=== PATIENT | male | born 1995 | race Caucasian/White ===

== ENCOUNTER 2023-04-28 02:15 | Emergency (ER) | payer SELFPAY ==
[2023-04-28 02:18] VITALS: BP 190/120; PULSE 66; RESP 18; TEMP 36.8; O2SAT 99
--- NOTE | 2023-04-28 02:25 | PC.NURSE ---
Pt presents to ER for dental pain to the top right portion of his mouth Pt states I am experiencing nerve pain due to a chipped tooth Pt states he was in [facility] ER yesterday and given Percocet Pt states he was in the ER all weekend due to this pain Pt is scheduled to see his dentist tomorrow Pt states the numbing sucker worked better than the Percocet, the Percocet is not helping Pt request's room temperature water at this time
--- NOTE | 2023-04-28 02:32 | ED.GENADUL1 ---
HPI - General Adult General Chief complaint: Dental/Oral Stated complaint: DENTAL PAIN Time Seen by Provider: 04/28/23 02:26 Source: patient Mode of arrival: walk-in Limitations: no limitations History of Present Illness HPI narrative: Patient is a 27-year-old male who is presenting with acute on chronic dental pain. Patient is complaining of severe pain to tooth #31. Patient has partially eroded teeth at tooth #31 along with multiple other teeth that have erosion/dental caries. Patient has gone to the Emergency Room at [facility] several times over the weekend trying to get pain relief. Thankfully patient does have a dentist appointment later today, April 28. Patient denies any type of trauma, fall, or accident. Patient has not seen a dentist in a long time, years. Patient cousin is at bedside, we can talk about patient's health care in front cousin. Patient has been prescribed Percocet, antibiotics, also been taking Tylenol, Motrin. Patient is not been using ice or heat. Patient's having pain to the right side of his face. Patient blood pressure is elevated, patient says the reason the blood pressures elevated secondary to pain and is been told this multiple times over the weekend about his elevated blood pressure. He typically does not have elevated blood pressure, he relates it to the pain. Patient has no other acute complaints at this time. . All systems are negative except as noted/marked. All systems reviewed and otherwise negative. . Nurses note and vital signs reviewed and patient is not hypoxic. Nurses notes reviewed and patient is noted to be non-hypoxic. General: The patient is comfortable, alert and oriented x3, well appearing, non toxic in no apparent distress. Head: Atraumatic and normocephalic. Eyes: Normal conjunctiva ENT: The oropharynx is normal. No pharyngeal erythema, uvular edema, tonsillar exudates, asymmetry or trismus. Uvula is midline. Mouth is normal to inspection With the exception of a pain on percussion of the tooth #31 and evidence of Multiple areas of Dental erosion and dental caries. There is no evidence of facial asymmetry or abscess formation. Floor of the mouth is soft. No tenderness in the submental or submandibular space. No tongue elevation or deviation. The patient has no evidence of periapical abscess, gingivitis, ANUG or other acute pathology. Airway is patent. Neck: The neck demonstrates normal range of motion. No meningeals signs are present. No stridor. No masses or lymphandenopathy noted. Respiratory: No acute distress, lungs are clear to auscultation, no wheezing, rhonchi, or rales noted. No stridor or retractions are noted. Cardiovascular: Regular rate and rhythm Skin: The skin exam shows no evidence of rashes Neuro: Alert and oriented x4, normal speech Lymphatic: No cervical lymphadenopathy Related Data Home Medications Medication Instructions Recorded Confirmed oxycodone-acetaminophen 5 mg-325 tab 04/28/23 mg tablet Allergies Allergy/AdvReac Type Severity Reaction Status Date / Time Penicillins Allergy Verified 04/28/23 02:22 [facility] Social History Smoking status: Current every day smoker Exam Constitutional Vital Signs, click to edit/add: Last Vital Signs Temp 98.2 F 04/28/23 02:18 Pulse 66 04/28/23 02:18 Resp 18 04/28/23 02:18 BP 190/120 H 04/28/23 02:18 Pulse Ox 99 04/28/23 02:18 O2 Del Method Room Air 04/28/23 02:18 Course Vital Signs Vital signs: Vital Signs Temperature 98.2 F 04/28/23 02:18 Pulse Rate 66 04/28/23 02:18 Respiratory Rate 18 04/28/23 02:18 Blood Pressure 190/120 H 04/28/23 02:18 Pulse Oximetry 99 04/28/23 02:18 Oxygen Delivery Method Room Air 04/28/23 02:18 Temperature 98.2 F 04/28/23 02:18 Pulse Rate 66 04/28/23 02:18 Respiratory Rate 18 04/28/23 02:18 Blood Pressure 190/120 H 04/28/23 02:18 Pulse Oximetry 99 04/28/23 02:18 Oxygen Delivery Method Room Air 04/28/23 02:18 Medical Decision Making MDM Narrative Medical decision making narrative: Patient states his headache currently is secondary to his right upper dental pain. Patient has no chest pain, shortness of breath. Patient has been told at his multiple Emergency Room visits this past week and a [facility] for pain control that he has had elevated blood pressure. Education done at bedside on following up with blood pressure readings after he sees a dentist and he has relief of his dental pain. Patient was told if he continues to have elevated blood pressure of headaches, chest pain, shortness of breath, or any other acute concerns, he needs to have his blood pressure treated. Patient is to follow-up and establish a PCP. Patient has been at [facility] several times this past weekend for pain control,Patient came to [facility] for the 1[facility] time for dental pain this evening. Thankfully patient does have a dentist appointment later today, April 28. Patient has not seen a dentist in many, many years. Patient has very poor dental hygiene. He has been prescribed an antibiotic and Percocet. Patient will follow up with dentist later today and patient understands a star falling up with his blood pressure and cranial blood pressure log to make sure he is not have underlying hypertension. Patient understands this, patient was given dental anesthesia in the Emergency Room and sent home with the medication to help with pain until he sees a dentist today. No airway compromise, no signs of Blaise angina, no ANUG. Discharge Plan Discharge Chief Complaint: Dental/Oral Clinical Impression: Dental caries, Toothache Patient Disposition: Home, Self-Care Condition: Fair Prescriptions / Home Meds: No Action oxycodone-acetaminophen 5-325 mg tablet Instructions: Benzocaine (By mouth), Toothache (ED), Tooth Extraction (DC) Additional Instructions: See the dentist today you're scheduled appointment. Use ice 20 minutes on, 20 minutes off. Take other prescriptions as prescribed Stand Alone Forms: Portal Instructions Referrals: Physician,Non-Staff, MD [Primary Care Provider] - 1 week
[2023-04-28] MEDS: BENZOCAINE 30 ML, lidocaine HCL 15 ML MM (02:46)
== END 2023-04-28 02:51 | disposition home or self-care (01) ==
PROVIDERS: Emergency Provider Emergency Medicine
DX: K02.9 Dental caries, unspecified (principal); K08.89 Other specified disorders of teeth and supporting structures; F17.210 Nicotine dependence, cigarettes, uncomplicated
CPT/HCPCS: 99283

== ENCOUNTER 2024-01-09 22:32 | Emergency (ER) | payer BC, SELFPAY ==
[2024-01-09 22:42] VITALS: BP 127/105; PULSE 86; TEMP 37.2; O2SAT 100; BMI 20.5
--- NOTE | 2024-01-09 23:09 | XR_ITS ---
[facility] [place] [id number] Patient Name: JULIA VILLASENOR MRN: [id number] date: 1995 Sex: M Assigned Patient Location: ER Current Patient Location: ER Accession/Order Number: [id number] Exam Date: 01/09/2024 23:20 Report Date: 01/10/2024 00:13 At the request of: WELLINGTON VELEZ Procedure: XR hand RT min 3V EXAM: XR hand RT min 3V HISTORY: The patient is a 28-year-old male, INJURY COMPARISON: 07/29/2020. FINDINGS: The right hand is radiographically negative with no evidence of fracture, dislocation, joint space narrowing, osteophytes, or other osseous or articular abnormalities. XR/XR hand RT min 3V IMPRESSION: Negative. Electronically authenticated by: MIK LOUISE Date: 01/10/2024 00:13
--- NOTE | 2024-01-10 00:57 | ED_ITS ---
HPI - Extremity Problem General Chief complaint: Extremity Problem, Nontraumatic Stated complaint: UPPER RIGHT EXTREMITY PAIN, WRIST Time Seen by Provider: 01/10/24 00:54 Source: patient Mode of arrival: walk-in Limitations: no limitations History of Present Illness HPI Narrative: right wrist injury. describes lifting and experiencing a pulling sensation of the right wrist about one week ago. Still has occ shooting pain up the wrist. No weakness Related Data Home Medications ?Medication ?Instructions ?Recorded ?Confirmed oxycodone-acetaminophen 5 mg-325 tab 04/28/23 mg tablet Allergies Allergy/AdvReac Type Severity Reaction Status Date / Time Penicillins Allergy Severe Swelling Verified 01/09/24 22:42 of Lip/Tongue/Throat Review of Systems ROS Status of ROS 10 or more systems reviewed and unremark able except as noted in history and below [facility] Social History Smoking status: Current every day smoker Exam Constitutional Vital Signs, click to edit/add: Last Vital Signs Temp 99 F 01/09/24 22:42 Pulse 86 01/09/24 22:42 Resp 18 01/09/24 22:42 BP 127/105 H 01/09/24 22:42 Pulse Ox 100 01/09/24 22:42 O2 Del Method Room Air 01/09/24 22:42 Common normals: no apparent distress, average body habitus, oriented x3, no limitations, healthy appearing, alert and well nourished [facility] Common normals: normocephalic and head/scalp atraumatic Respiratory Common normals: normal respiratory effort, no retractions and no use of accessory muscles Cardio Common normals: regular rate, regular rhythm, S1 normal heart sound and S2 normal heart sound Extremity Other: right wrist exam normal Neuro Common normals: oriented x3, CN's II-XII intact bilaterally, moves all extremities, no focal motor deficits and no sensory deficits noted Psych Appearance: grossly normal Course Vital Signs Vital signs: Vital Signs Temperature 99 F 01/09/24 22:42 Pulse Rate 86 01/09/24 22:42 Respiratory Rate 18 01/09/24 22:42 Blood Pressure 127/105 H 01/09/24 22:42 Pulse Oximetry 100 01/09/24 22:42 Oxygen Delivery Method Room Air 01/09/24 22:42 Temperature 99 F 01/09/24 22:42 Pulse Rate 86 01/09/24 22:42 Respiratory Rate 18 01/09/24 22:42 Blood Pressure 127/105 H 01/09/24 22:42 Pulse Oximetry 100 01/09/24 22:42 Oxygen Delivery Method Room Air 01/09/24 22:42 MDM - Extremity (Nontraumatic) MDM Narrative Medical decision making narrative: patient presents with a history of strain of his wrist. Xray of the wrist is neg. Patient exam unremarkable. placed in a splint and discharged to followup with his doctor Discharge Plan Discharge Stand Alone Forms: Portal Instructions Chief Complaint: Extremity Problem, Nontraumatic Clinical Impression: Sprain and strain of right wrist Patient Disposition: Home, Self-Care Prescriptions / Home Meds: No Action oxycodone-acetaminophen 5-325 mg tablet Print Language: Kinyarwanda Instructions: Wrist Sprain (ED) Additional Instructions: follow up with your doctor for recheck Referrals: Physician,Non-Staff, MD [Primary Care Provider] - 1 week
== END 2024-01-10 01:08 | disposition home or self-care (01) ==
PROVIDERS: Emergency Provider Internal Medicine
DX: S63.501A Unspecified sprain of right wrist, initial encounter (principal); S66.911A Strain of unspecified muscle, fascia and tendon at wrist and hand level, right hand, initial encounter; F17.210 Nicotine dependence, cigarettes, uncomplicated; X50.9XXA Other and unspecified overexertion or strenuous movements or postures, initial encounter
CPT/HCPCS: 73130; 99283

== ENCOUNTER 2024-01-26 22:29 | Emergency (ER) | payer BC, SELFPAY ==
[2024-01-26 22:33] VITALS: BP 131/85; PULSE 68; TEMP 37.1; O2SAT 99
--- OUTSIDE RECORDS SUMMARY | 2024-01-26 22:36 | XMS_ITS | CCD ---
Author Organization [facility] Inform ion Partnership [facility] Care Team Providers Care Medical Director/Head Team Physician Name Role Phone NAS FARRELL Primary Care Unavailable SELF, REFERRED Referring Unavailable JERI BLEVINS Attending Unavailable JERI BLEVINS Admitting Unavailable Nas Farrell Unavailable DO Nas Farrell Primary Care Provider [phone] DO Rigo Sy Emergency Provider Lory FARRELL, DR LOVELL Primary Care Unavailable MARKER, DR BURDICK Admitting Unavailable MARKER, DR BURDICK Consulting Unavailable MARKER, DR BURDICK Attending Unavailable JAMI, DR LOVELL Primary Care Unavailable BREE, DR MEENAKSHI Blevins Consulting Unavailable BREE, DR MEENAKSHI Blevins Attending Unavailable BREE, DR MEENAKSHI Blevins Admitting Unavailable AMAYA RASHID Attending Unavailable AMAYA RASHID Admitting Unavailable JAMI, DR LOVELL Primary Care Unavailable GENESIS CHUNG Consulting Unavailable ALICIA DORAN Consulting Unavailable AMAYA RASHID Consulting Unavailable WELLINGTON VELEZ Attending Unavailable WELLINGTON VELEZ Admitting Unavailable WELLINGTON VELEZ Consulting Unavailable JAMI, DR LOVELL Primary Care Unavailable JAMI, DR LOVELL Primary Care Unavailable RAJANI HOLLIDAY Attending Unavailable RAJANI HOLLIDAY Admitting Unavailable RAJANI HOLLIDAY Consulting Unavailable JAMI, DR LOVELL Primary Care Unavailable MIKHAIL GARRIDO Attending Unavailable MIKHAIL GARRIDO Admitting Unavailable MIKHAIL GARRIDO Consulting Unavailable JAMI, DR LOVELL Primary Care Unavailable MIKHAIL GARRIDO Attending Unavailable MIKHAIL GARRIDO Admitting Unavailable Sandi, DR Hernandez Consulting Unavailable MIKHAIL GARRIDO Consulting Unavailable VARSHA ZHAO Consulting Unavailable JEEVAN SOARES Consulting Unavailable CHAD GUSTAFSON Consulting Unava ilable MIKHAIL GARRIDO Attending Unavailable MIKHAIL GARRIDO Admitting Unavailable Sandi, DR Hernandez Consulting Unavailable JAMI, DR LOVELL Primary Care Unavailable MIKHAIL GARRIDO Consulting Unavailable JAMI, DR LOVELL Primary Care Unavailable MIKHAIL GARRIDO Attending Unavailable MIKHAIL GARRIDO Admitting Unavailable Zieber, DR Hernandez Consulting Unavailable HIGHLFRANCISCO, MIKHAIL Gonzalez Consulting Unavailable CLEMENTINE CABRERA Consulting Unavailable JAMI, DR LOVELL Primary Care Unavailable MIKHAIL GARRIDO Attending Unavailable MIKHAIL GARRIDO Admitting Unavailable Zieber, DR Hernandez Consulting Unavailable MIKHAIL GARRIDO Consulting Unavailable Jami, DO Lovell Primary Care Provider SANJANA Chavira Shaka Emergency Provider [phone] [place], [facility] Eloisa E Emergency Provider Pierres, DO Nas Primary Care Provider [phone] Bull[place], [facility] Eloisa E Emergency Provider [phone] Tugenesis, DO Cornell Meraz Emergency Provider [phone] Jami, DO Nas Primary Care Provider [phone] Tugenesis, DO Cornell Meraz Emergency Provider [phone] SANJANA Chavira Shaka Emergency Provider Sima, Emery A Emergency Provider [phone] SANJANA Goode A Emergency Provider Bullimore, [facility] Eloisa E Emergency Provider Luis Perez Admitting Unavailable Luis Perez Attending Unavailable Provider, None Primary Care Unavailable Jaciel CERVANTES Attending Unavailable Jami, DO Lovell Primary Care Provider Temp, Provider Emergency Provider Unavailable Cornell Green Attending Unavailable Cornell Green M Admitting Unavailable PierresNas Primary Care Unavailable Pierres, Nas Primary Care Unavailable Bullimore, Eloisa E Attending Unavailable Bullimore, Eloisa E Admitting Unavailable Kiepert, Carmen A Attending Unavailable Florentino, Carmen A Admitting Unavailable Kuns, Nas Primary Care Unavailable Kuns, Nas Primary Care Unavailable Kebrittany Emery A Attending Unavailable Sima Emery A Admitting Unavailable Tupa, Cornell M Admitting Unavailable Kuns, Nas Primary Care Unavailable Tupa, Cornell M Attending Unavailable Bullimore, Eloisa E Admitting Unavailable Nas Farrell Primary Care Unavailable Eloisa Aburto Attending Unavailable Shaka Chavira Attending Unavailable Shaka Chavira Admitting Unavailable Nas Farrell Primary Care Unavailable Michael Bond Jr Attending Unavailable Michael Bond Jr Admitting Unavailable Nas Farrell Primary Care Unavailable Temp, Provider Attending Unavailable Temp, Provider Admitting Unavailable Nas Farrell Primary Care Unavailable Unavailable Unavailable Unavailable Allergies Allergy Classification Reported Allergen(s) Allergy Type Date of Onset Reaction(s) Facility Penicillins (antibiotic) (2 sources) Penicillin Drug Allergy 4 hives, trouble breathing, Swelling of Lip/Tongue/Thro at [facility] (15 sources) Penicillins; Translations: [Penicillins] Allergy to substance 1 Swelling of Lip/Tongue/Thro at [facility] (14 sources) Penicillin G Drug Allergy 4 hives, trouble breathing [facility] (1 source) Penicillin Drug Allergy 9 [facility] (1 source) Penicillin Drug Allergy 4 [facility] Medications Current Medications Medication Drug Class(es) Dates Sig (Normalized) Sig (Original) acetaminophen 325 mg / oxyCODONE hydrochloride 5 mg oral tablet (8 sources) Opioid Agonist Start: 04-29-2023 take 1 tablet by mouth every six hours Oxycodone-Acetami nophen (Percocet) 5-325 mg tablet Active 1 - 2 TAB PO Every 6 hours 15 3 April 29, 2023 Start: 04-26-2023 take 1 tablet by claritza th three times daily Oxycodone-Acetaminophen (Percocet) 5-325 mg tablet Active 1 TAB PO Three times daily 7 2 April 26, 2023 busPIRone hydrochloride 7.5 mg oral tablet (8 sources) Start: 03-13-2023 take 7.5 mg by mouth twice daily Buspirone Active 7.5 MG PO Twice daily March 13, 2023 12:00am clindamycin 300 mg oral capsule (15 sources) Lincosamide Antibacterial Start: 04-26-2023 take 300 mg by mouth three times daily Clindamycin Hcl Active 300 MG PO Three times daily April 26, 2023 1:00am Start: 01-24-2023 End: 04-26-2023 take 450 mg by mouth three times daily Clindamycin Hcl Discontinued 450 MG PO Three times daily 90 January 24, 2023 12:00am April 26, 2023 4:28pm fluticasone propionate 0.05 mg/actuat metered dose nasal spray (1 source) Corticosteroid Start: 06-17-2023 take 2 spray(s) nasal route once daily Fluticasone Propionate 50 MCG/ACT 2 sprays each nostril Nasally Once a day Jun, Active ibuprofen 600 mg oral tablet (20 sources) Nonsteroidal Anti-inflammatory Drug Start: 04-29-2023 take 600 mg by mouth every eight hours Ibuprofen Active 600 MG PO Q8H April 29, 2023 1:00am Start: 06-21-2021 End: 04-21-2022 take 800 mg by mouth three times daily Ibuprofen Discontinued 800 MG PO Three times daily December 11, 2021 12:00am April 21, 2022 8:06am Lidocaine (4 sources) Antiarrhythmic, Amide Local Anesthetic Start: 04-27-2023 Lidocaine Hcl (Lidocaine Viscous) 2 % solution Active 17 ML MUCOUS MEM Three times daily 150 3 April 27, 2023 1:00am 300 Start: 04-27-2023 Lidocaine Hcl (Lidocaine Viscous) 2 % solution Active 17 ML MUCOUS MEM Three times daily 150 3 April 27, 2023 12:00am 300 lisinopril 10 mg oral tablet (1 source) Angiotensin Converting Enzyme Inhibitor Start: 02-21-2022 take 1 tablet by mouth every twenty-four hours Lisinopril 10 MG 1 tablet Orally Once a day for 30 day(s) Feb, Active [place] (No Known Home Meds) (3 sources) Start: 04-21-2022 [place] (No Known Home Meds) Active April 21, 2022 1:00am Start: 04-21-2022 [place] (No Kn own Home Meds) Active April 21, 2022 12:00am Completed/Discontinued Medications Medication Drug Class(es) Dates Sig (Normalized) Sig (Original) acetaminophen 325 mg / HYDROcodone bitartrate 5 mg oral tablet (20 sources) Opioid Agonist Start: 08-17-2018 End: 12-08-2018 take 1 tablet by mouth every six hours Hydrocodone-Acetami nophen Discontinued 1 TAB PO Q6H 14 August 17, 2018 December 08, 2018 1:32pm Start: 08-12-2018 End: 12-08-2018 take 1 tablet by mouth every four to six hours Hydrocodone-Acetaminophen ([place]) 5-325 mg tablet Discontinued 1 TAB PO EVERY 4-6 HOURS 10 3 August 12, 2018 December 08, 2018 1:32pm cefdinir 300 mg oral capsule (12 sources) Cephalosporin Antibacterial Start: 10-28-2019 End: 08-01-2021 take 300 mg by mouth twice daily Cefdinir Discontinued 300 MG PO Twice daily 14 October 28, 2019 12:00am August 01, 2021 3:20pm chlorhexidine gluconate 1.2 mg/ml mouthwash (9 sources) Start: 01-24-2023 End: 04-26-2023 Chlorhexidine Gluconate (Peridex) 0.12 % mouthwash Discontinued 12 PERCENT MUCOUS MEM Twice daily 473 January 24, 2023 12:00am April 26, 2023 4:28pm Use 15 ml and rinse mouth for at least 30 secs citalopram 10 mg oral tablet (7 sources) Serotonin Reuptake Inhibitor Start: 06-21-2021 take 1 tablet by mouth every twenty-four hours CeleXA 10 MG 1 tablet Orally Once a day for 30 day(s) Jun, Not-Taking clonazePAM 0.5 mg oral tablet (8 sources) Benzodiazepine Start: 12-19-2021 take 1 tablet by mouth every twenty-four hours clonazePAM 0.5 MG 1 tablet at bedtime Orally Once a day for 30 days Dec, Not-Taking/PRN dicyclomine hydrochloride 20 mg oral tablet (12 sources) Anticholinergic Start: 12-08-2018 End: 02-02-2019 take 20 mg by mouth three times daily Dicyclomine Discontinued 20 MG PO Three times daily December 08, 2018 12:00am February 02, 2019 1:10am escitalopram 10 mg oral tablet (8 sources) Serotonin Reuptake Inhibitor Start: 12-19-2021 take 1 tablet by mouth every twenty-four hours Escitalopram Oxalate 10 MG 1 tablet Orally Once a day Dec, Not-Taking/PRN hydrOXYzine hydrochloride 50 mg oral tablet (18 sources) Antihistamine Start: 02-21-2022 take 1-2 tablets by mouth at bedtime as needed for sleep hydrOXYzine HCl 50 MG 1-2 tablets Orally at HS as needed for sleep for 30 day(s) Feb, Not-Taking/PRN Start: 12-04-2021 End: 12-11-2021 take 25 mg by mouth every six hours Hydroxyzine Hcl Discontinued 25 MG PO Q6H December 04, 2021 12:00am December 11, 2021 12:00pm naproxen 500 mg oral tablet (20 sources) Nonsteroidal Anti-inflammatory Drug Start: 10-28-2019 End: 08-01-2021 take 1 tablet by mouth twice daily Naproxen (Naprosyn) 500 mg tablet Discontinued 500 MG PO Twice daily October 28, 2019 10:44pm August 01, 2021 3:20pm Start: 05-12-2018 End: 08-12-2018 take 1 tablet by mouth twice daily at mealtime Naproxen (Naprosyn) 500 mg tablet Discontinued 500 MG PO Twice daily May 12, 2018 1:00am August 12, 2018 11:56pm administer with food or milk ondansetron 4 mg disintegrating oral tablet (17 sources) Serotonin-3 Receptor Antagonist Start: 04-26-2023 End: 04-27-2023 take 4 mg by mouth every six hours Ondansetron Discontinued 4 MG PO Q6H April 26, 2023 1:00am April 27, 2023 11:16am Start: 12-08-2018 End: 02-02-2019 take 1 tablet by mouth every eight hours Ondansetron Hcl (Zofran) 4 mg tablet Discontinued 4 MG PO Q8H 03 10December 08, 2018 12:00am February 02, 2019 1:10am promethazine hydrochloride 25 mg oral tablet (12 sources) Phenothiazine Start: 03-12-2017 End: 05-12-2018 take 25 mg by mouth every six hours Promethazine Discontinued 25 MG PO Q6H March 12, 2017 12:00am May 12, 2018 5:11pm Problems Active Problems Problem Classification Problem Date Documented Da te Episodic/Chronic Abdominal pain (20 sources) Abdominal pain; Translations: [Unspecified abdominal pain] 10-28-2019 Episodic Anxiety disorders (20 sources) Anxiety; Translations: [Anxiety disorder, unspecified] Onset: 12-19-2021 Resolved: 12-19-2021 Chronic Disorders of teeth and jaw (20 sources) Dental caries; Translations: [Dental caries, unspecified] Onset: 04-27-2023 01-24-2023 Episodic Disorders usually diagnosed in infancy, childhood, or adolescence (14 sources) Disorders of attention and motor control; Translations: [Other specified behavioral and emotional disorders with onset usually occurring in childhood and adolescence] 01-15-2024 Chronic Esophageal disorders (8 sources) Acid reflux; Translations: [Gastro-esophageal reflux disease without esophagitis] Chronic Fluid and electrolyte disorders (20 sources) Dehydration; Translations: [Acute hypokalemia] Onset: 06-21-2021 Resolved: 06-21-2021 Episodic Gastritis and duodenitis (14 sources) Gastritis; Translations: [Gastritis, unspecified, without bleeding] 12-08-2018 Episodic Headache; including migraine (1 source) Headache; including migraine; Translations: [Headache, unspecified] Onset: 04-25-2023 Malaise and fatigue (20 sources) Fatigue; Translations: [Other fatigue] 02-02-2019 Episodic Mood disorders (20 sources) Major depressive disorder, single episode, unspecified; Translations: [Depression] Onset: 06-21-2021 Resolved: 02-21-2022 Chronic Nausea and vomiting (6 sources) Nausea and vomiting; Translations: [Nausea with vomiting, unspecified] Onset: 04-26-2023 04-26-2023 Episodic Noninfectious gastroenteritis (14 sources) Gastroenteritis; Translations: [Noninfective gastroenteritis and colitis, unspecified] 12-08-2018 Episodic Other circulatory disease (13 sources) Elevated blood pressure; Translations: [Elevated blood-pressure reading, without diagnosis of hypertension] Episodic Other circulatory disease (2 sources) Elevated blood-pressure reading, without diagnosis of hypertension Onset: 02-21-2022 Resolved: 02-21-2022 Episodic Other connective tissue disease (1 source) Peroneal tendinitis, right leg; Translations: [PERONEAL TENDINITIS RIGHT LEG] Onset: 03-12-2022 Episodic Other connective tissue disease (1 source) Tendonitis of right wrist; Translations: [Other enthesopathies, not elsewhere classified] 01-18-2024 Episodic Other gastrointestinal disorders (14 sources) Diarrhea; Translations: [Diarrhea, unspecified] 03-12-2017 Episodic Other lower respiratory disease (8 sources) Cough; Translations: [Cough] Episodic Other nervous system disorders (1 source) Other chronic pain; Translations: [OTHER CHRONIC PAIN] Onset: 01-29-2022 Chronic Other nervous system disorders (12 sources) Clonus; Translations: [Other abnormal involuntary movements] 04-21-2022 Episodic Other non-traumatic joint disorders (6 sources) Pain in right ankle and joints of right foot; Translations: [PAIN IN RIGHT ANKLE] Onset: 06-21-2021 Resolved: 06-21-2021 Episodic Other non-traumatic joint disorders (4 sources) Other specified joint disorders, right ankle and foot; Translations: [OTHER SPEC JOINT D/O RT ANKLE FOOT] Onset: 02-24-2022 Episodic Other non-traumatic joint disorders (5 sources) Other instability, right ankle; Translations: [OTHER INSTABILITY RIGHT ANKLE] Onset: 02-03-2022 Episodic Other non-traumatic joint disorders (10 sources) Joint pain in right hand; Translations: [Pain in joints of right hand] 12-09-2022 Episodic Other nutritional; endocrine; and metabolic disorders (5 sources) Gilbert's syndrome; 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 Other nutritional; endocrine; and metabolic disorders (13 sources) Loss of appetite; Translations: [Anorexia] Episodic Other screening for suspected conditions (not mental disorders or infectious disease) (1 source) Encounter for screening for cardiovascular disorders Episodic Other upper respiratory infections (20 sources) Pharyngitis; Translations: [Acute pharyngitis, unspecified] Onset: 06-02-2022 03-07-2021 Episodic Poisoning by other medications and drugs (12 sources) Poisoning by unspecified drugs, medicaments and biological substances, accidental (unintentional), initial encounter; Translations: [Overdose] 04-21-2022 Episodic Residual codes; unclassified (5 sources) Hypersomnia; Translations: [Hypersomnia, unspecified] Chronic Residual codes; unclassified (1 source) Hypersomnia, unspecified Chronic Residual codes; unclassified (6 sources) Insomnia; Translations: [Insomnia, unspecified] Episodic Screening and history of mental health and substance abuse codes (1 source) Personal history of nicotine dependence; Translations: [PERSONAL HISTORY OF NICOTINE DEPEND] Onset: 06-02-2022 Episodic Skull and face fractures (4 sources) Fracture of tooth (traumatic), initial encounter for closed fracture; Translations: [Fracture of multiple teeth] 04-27-2023 Episodic Sprains and strains (15 sources) Sprain of ankle; Translations: [Sprain of unspecified ligament of unspecified ankle, initial encounter] Onset: 06-18-2021 12-11-2021 Episodic Substance-related disorders (7 sources) Nicotine dependence, cigarettes, uncomplicated; Translations: [Nicotine dependence, chewing tobacco, uncomplicated] Onset: 10-24-2021 01-15-2024 Chronic Suicide and intentional self-inflicted injury (15 sources) Suicidal thoughts; Translations: [Suicidal ideations] Onset: 06-21-2021 Resolved: 06-21-2021 Episodic Superficial injury; contusion (2 sources) Contusion of right hand; Translations: [Contusion of right hand, initial encounter] 01-18-2024 Episodic Unclassified (2 sources) COUGH, UNSPECIFIED; Translations: [COUGH, UNSPECIFIED] Onset: 06-02-2022 Unclassified (1 source) CONTACT W/AND (SUSP) EXPOS COVID-19; Translations: [CONTACT W/AND (SUSP) EXPOS COVID-19] Onset: 06-02-2022 Unclassified (1 source) Other specified disorders of teeth and supporting structures; Translations: [Other specified disorders of teeth and supporting structures] Onset: 04-28-2023 Viral infection (11 sources) Viral disease; Translations: [Viral infection, unspecified] 12-02-2022 Episodic Past or Other Problems Problem Classification Problem Date Documented Da te Episodic/Chronic Administrative/social admission (1 source) Malingerer [conscious simulation]; Translations: [MALINGERER CONSCIOUS SIMULATION] Onset: 06-18-2021 Episodic E Codes: Natural/environment (2 sources) Exposure to other specified factors, initial encounter; Translations: [Overexertion from prolonged static or awkward postures, initial encounter] Onset: 06-18-2021 Episodic E Codes: Unspecified (1 source) Activity, trampolining; Translations: [ACTIVITY TRAMPOLINING] Onset: 06-18-2021 Episodic Other connective tissue disease (4 sources) Pain in right foot; Translations: [PAIN IN RIGHT FOOT] Onset: 02-12-2022 Episodic Other connective tissue disease (4 sources) Pain in left lower leg; Translations: [PAIN IN LEFT LOWER LEG] Onset: 10-23-2021 Episodic Other injuries and conditions due to external causes (1 source) Unspecified injury of right ankle, initial encounter Onset: 12-19-2021 Resolved: 12-19-2021 Episodic Other injuries and conditions due to external causes (4 sources) Other specified injuries of right ankle, initial encounter; Translations: [OTH SPEC INJURIES RT ANKLE INITIAL] Onset: 08-14-2021 Episodic Other nutritional; endocrine; and metabolic disorders (1 source) Anorexia Onset: 06-21-2021 Resolved: 06-21-2021 Episodic Residual codes; unclassified (1 source) Insomnia, unspecified Onset: 02-21-2022 Resolved: 02-21-2022 Episodic Unclassified (12 sources) Ankle sprain and strain 08-01-2021 Unclassified (1 source) COUGH, UNSPECIFIED; Translations: [COUGH, UNSPECIFIED] Onset: 05-30-2022 Results Test Name Value Interpretation Reference Range Facility Registrationon 11-11-2023 Registration [id number]#1.00TI[facility] - Toxicology Resultson 0 10-27-2023 Lab - Toxicology Results [id number] [facility] 10-22-2023 Consent Forms [id number] [facility] 10on 10-21-2023 Drug Screen Complete Collected Normal [facility] Comment on above: Performed By: #### [id number] #### [facility] (DEFAULT) [address] [place] [address] ED Clinical Summaryon 2023 ED Clinical Summary [facility] ? Urgent Care [address] [place] [id number] Clinical Summary PERSON INFORMATION Name: JOHN STARR CHAPARRITA Age: 27 Years Sex: MALE : 1995 MRN: Acct#: Visit Reason: Medical screening exam; [facility] Arrival: 10/20/2023 13:26:18 Discharge: 10/20/2023 14:15:00 LOS: 000 00:49 Check In: 10/20/2023 13:26:18 Checkout: 10/20/2023 14:15:00 Address: [facility] [place] [address] PCP: Provider, None PROVIDER INFORMATION Provider Role Assigned Unassigned JEFF ESCALERA ED PA 10/20/2023 13:29:28 10/20/2023 14:04:17 Luis Perez PA-C ED PA 10/20/2023 14:11:22 VITALS INFORMATION Vital Sign Triage Latest Temperature Tympanic Temperature Temporal Artery Pulse Rate O2 Sat 97 % 97 % Respiratory Rate Blood Pressure / / MEDICAL INFORMATION Medications Given: Allergy Information: penicillin PHYSICIAN DOCUMENTATION DISCHARGE INFORMATION: Discharge Disposition: Home Discharge Location: Home PATIENT EDUCATION INFORMATION Instructions: Follow-Up: With: Address: When: Your primary provider in your hometown , only if needed DIAGNOSIS: Physical exam Patient Understands: Yes - Patient/family/home care nurse verbalizes understanding of instructions given Comment: Normal [facility] ED Patient Summaryon 024 ED Patient Summary [facility] ? Urgent Care [address] [place] [address] PATIENT DISCHARGE INSTRUCTIONS Patient Information Name: JOHN STARR Age: 27 Years Date of : 1995 Reason For Visit: Medical screening exam; [facility] Arrival Time: 10/20/2023 13:26:18 Primary Care Physician: Provider, None Attending Physician: Luis Perez PA-C Comment: Patient Education With: Address: When: Your primary provider in your hometown , only if needed Medication Information: The exam and treatment you received today in the [facility] Emergency Department were for an urgent problem and are not intended as complete care. It is important for you to follow up with a doctor, nurse practitioner, or physician?s assistant professor of art for ongoing care. If your symptoms become worse or you do not improve as expected and you are unable to reach your usual health care provider, you should return to the Emergency Department, we are available 24 hours a day. For those patients who have received Radiology results, the interpretation of your X-ray as given to you by our Emergency Department physician is only a preliminary report. The Radiologist will review your films and if there is a change in the diagnosis you will be notified by phone. Please make sure you have provided a working phone number so we can reach you if necessary. In the event that you had a lab culture while you were a patient in the Emergency Department, you will be notified by phone if there is a need to change your antibiotic. Please make sure you have provided a working phone number so we can reach you if necessary. [facility] Emergency Department has provided you with a complete list of medications post discharge. Please inform your measurer machine/provider of your visit and for further instruction on these medications. Any specific questions regarding your chronic medications and dosages should be discussed with your primary care physician(s) and/or pharmacist. Visit Information Visit Diagnosis: Diagnoses This Visit Medical screening exam ([id number]) Physical exam (Z00.00) If you received any narcotics, sedation, or any other medication that causes drowsiness for the next 24 hours, unless otherwise directed: ? Do not drive a car. ? Do not operate machinery such as power tools, lawn mowers, drills, sewing machines, or stoves ? Avoid alcoholic beverages and drugs for allergies, nerves, or sleep ? Do not make important personal or business decisions or sign any legal documents Reason for Visit: Medical screening [facility] Allergies: Substance Reaction Symptoms Type Comments penicillin Drug Vital Signs: Vitals and Measurements this Visit (last charted value for your 10/20/2023 visit) Vital Signs This Visit Temperature Oral: 36.5 DegC Apical Heart Rate: 87 bpm Respiratory Rate: 18 br/min SpO2: 97 % Blood Pressure Method: Automatic Measurements This Visit Height/Length Measured: 190.50 cm Weight Measured: 67.13 kg Weight Dosin.130 kg Body Mass Index: 18.5 kg/m2 BSA Measured: 1.88 m2 Problems List: Problem Onset Comments No Problems found Major Tests and Procedures: The following procedures and tests were performed during your ED visit. Laboratory Radiology Cardiology Viruses or Bacteria What?s got you sick? Antibiotics only treat bacterial infections. Viral illnesses cannot be treated with antibiotics. When an antibiotic is not prescribed, ask your healthcare professional for tips on how to relieve symptoms and feel better. Usual Cause Illness Viruses Bacteria Antibiotic Needed Cold/Runny Nose NO Bronchitis/Chest Cold (in otherwise healthy children and adults) NO Whooping Cough Yes Flu NO Strep Throat Yes Sore Throat (except strep) NO Fluid in the middle ear (otitis media with effusion) NO Urinary Tract Infection Yes Antibiotics Aren?t Always the Answer www.cdc.gov/getsmar t GET SMART Know When Antibiotics Work U.S. Department of Health and Human Services Centers for Disease Control and Prevention February 2014 Normal [facility] Urgent Care Note- Provideron 10-20-2023 Urgent Care Note- Provider Patient: JOHN STARR Age: 27 years Sex: MALE : 1995 Associated Diagnoses: None Author: Luis Perez PA-C Basic Information Additional information: Chief Complaint from Nursing Triage Note : Chief Complaint 10/20/2023 13:53 EDT Chief Complaint Chief Complaint . History of Present Illness Patient presents for a pre-employment physical. She is cleared for work. Exam is normal. See scanned document. GENERAL: Awake, alert and oriented to person, place and situation. Well nourished, well developed, non toxic, NAD. Moves around the department freely. EYES: Pupils equal, round and react to light. EOMI. ENMT: Ears: TM's and external canals with normal inspection bilaterally. Nose: normal inspection. Mouth: oral mucosa is pink and still moist. Throat: normal inspection. NECK: No bony TTP, normal range of motion, no meningismus, trachea is midline. No anterior or posterior lymphadenopathy. CARDIOVASCULAR: Regular rate and rhythm. +S1 +S2. No murmurs or rubs. RESPIRATORY: Clear to auscultation bilaterally without rales, rhonchi or wheeze. ABDOMEN: Soft, completely non tender, abdomen is non distended, without rebound tenderness, guarding or peritoneal signs. Bowel sounds present times 4 quadrants and normoactive. No bruits. No masses. No CVA TTP. BACK: There is no bony TTP, no scoliosis, full ROM without difficulty. EXTREMITIES: No cyanosis, clubbing or edema. Good muscle tone, moves all extremities fully. Squat normal. SKIN: Normal inspection, no visualized rash. NEUROLOGIC: Light touch sensation in tact, strength 5/5 in bilateral upper and lower extremities. Normal reflexes. Steady gait. Normal mentation. No focal neurological deficits appreciated. PSYCHIATRIC: Mood and affect appropriate. Health Status Allergies: Allergic Reactions (Selected) Mild Penicillin- No reactions were documented.. Past Medical/ Family/ Social History Medical history: No active or resolved past medical history items have been selected or recorded.. Surgical history: No active procedure history items have been selected or recorded.. Family history: No family history items have been selected or recorded.. Social history: Social & Psychosocial Habits Substance Use 10/20/2023 Substance use: Never Tobacco 10/20/2023 Smoking tobacco use: Never tobacco user Electronic Cigarette/Vaping 10/20/2023 Electronic Cigarette Use: Never . Problem list: No qualifying data available . Physical Examination Vital Signs Vital Signs 10/20/2023 13:53 EDT Temperature Oral 36.5 DegC Apical Heart Rate 87 bpm Respiratory Rate 18 br/min SpO2 97 % BP Method Automatic . Measurements 10/20/2023 13:53 EDT Height 190.50 cm Weight 67.13 kg Weight Dosing 67.130 kg Body Mass Index Measured 18.5 kg/m2 BSA Measured 1.88 m2 . [Electronically Signed on: 10/20/2023 14:12 EDT] __ Luis Perez PA-C [Verified on: 10/20/2023 14:12 EDT] __ Luis Perez PA-C Normal [facility] Urgent Care [address]24 Urgent Care Record [facility] ? Urgent Care [address] [place] [address] PATIENT DISCHARGE INSTRUCTIONS Patient Information Name: JOHN STARR CHAPARRITA Age: 27 Years Date of : 1995 Reason For Visit: Medical screening exam; [facility] Arrival Time: 10/20/2023 13:26:18 Primary Care Physician: Provider, None Attending Physician: Luis Perez PA-C Comment: Visit Diagnosis: Diagnoses This Visit Medical screening exam ([id number]) Physical exam (Z00.00) If you received any narcotics, sedation, or any other medication that causes drowsiness for the next 24 hours, unless otherwise directed: ? Do not drive a car. ? Do not operate machinery such as power tools, lawn mowers, drills, sewing machines, or stoves ? Avoid alcoholic beverages and drugs for allergies, nerves, or sleep ? Do not make important personal or business decisions or sign any legal documents With: Address: When: Your primary provider in your hometown , only if needed Medication Information: The exam and treatment you received today in the [facility] were for an urgent problem and are not intended as complete care. It is important for you to follow up with a doctor, nurse practitioner, or physician?s assistant professor of art for ongoing care. If your symptoms become worse or you do not improve as expected and you are unable to reach your usual health care provider, you should return to the Emergency Department, we are available 24 hours a day. For those patients who have received Radiology results, the interpretation of your X-ray as given to you by our Urgent Care physician is only a preliminary report. The Radiologist will review your films and if there is a change in the diagnosis you will be notified by phone. Please make sure you have provided a working phone number so we can reach you if necessary. In the event that you had a lab culture while you were a patient in the Urgent Care, you will be notified by phone if there is a need to change your antibiotic. Please make sure you have provided a working phone number so we can reach you if necessary. [facility] has provided you with a complete list of medications post discharge. Please inform your measurer machine/provider of your visit and for further instruction on these medications. Any specific questions regarding your chronic medications and dosages should be discussed with your primary care physician(s) and/or pharmacist. Visit Information Allergies: Substance Reaction Symptoms Type Comments penicillin Drug Vital Signs: Vitals and Measurements this Visit (last charted value for your 10/20/2023 visit) Vital Signs This Visit Temperature Oral: 36.5 DegC Apical Heart Rate: 87 bpm Respiratory Rate: 18 br/min SpO2: 97 % Blood Pressure Method: Automatic Measurements This Visit Height/Length Measured: 190.50 cm Weight Measured: 67.13 kg Weight Dosin.130 kg Body Mass Index: 18.5 kg/m2 BSA Measured: 1.88 m2 Problems List: Problem Onset Comments No Problems found Patient Education Viruses or Bacteria What?s got you sick? Antibiotics only treat bacterial infections. Viral illnesses cannot be treated with antibiotics. When an antibiotic is not prescribed, ask your healthcare professional for tips on how to relieve symptoms and feel better. Usual Cause Illness Viruses Bacteria Antibiotic Needed Cold/Runny Nose NO Bronchitis/Chest Cold (in otherwise healthy children and adults) NO Whooping Cough Yes Flu NO Strep Throat Yes Sore Throat (except strep) NO Fluid in the middle ear (otitis media with effusion) NO Urinary Tract Infection Yes Antibiotics Aren?t Always the Answer www.cdc.gov/getsmar t GET SMART Know When Antibiotics Work U.S. Department of Health and Human Services Centers for Disease Control and Prevention February 2014 Normal [facility] Alanine aminotransferase [En zymatic activity/volume] in Serum or PlasmaOrdered By: Carmen Good on 04-27-2023 ALT [Catalytic activity/Vol] 23 U/L Normal 7-52 [facility] Comment on above: Performed By: #### C MP, LACTIC #### [facility] [address] [place] [address] [place] Albumin [Mass/volume] in Ser um or Plasma by Bromocresol green (BCG) dye binding methoOrdered By: Carmen Good on 04-27-2023 Albumin BCG dye [Mass/Vol] 4.5 g/dL 3.5-5.7 [facility] Alkaline phosphatase [Enzyma tic activity/volume] in Serum or PlasmaOrdered By: Carmen Good on 04-27-2023 ALP [Catalytic activity/Vol] 57 U/L Normal 34-104 [facility] Comment on above: Performed By: #### C MP, LACTIC #### [facility] [address] [place] [address] [place] Anisocytosis [Presence] in B lood by Light microscopyOrdered By: Carmen Good on 04-27-2023 Anisocytosis Ql (Bld) Slight Normal [facility] Comment on above: Performed By: #### S CAN CBC #### [address] Aspartate aminotransferase [ Enzymatic activity/volume] in Serum or PlasmaOrdered By: Carmen Wallisnoam on 04-27-2023 AST [Catalytic activity/Vol] 31 U/L Normal 13-39 [facility] Comment on above: Performed By: #### C MP, LACTIC #### [address] Automated basophil %Ordered By: Carmen Wallist on 04-27-2023 Basophils/100 WBC (Bld) 0.5 % Normal . [facility] Comment on above: Performed By: #### S CAN CBC #### [address] Automated basophil countOrde red By: Carmen Wallisnoam on 04-27-2023 Basophils (Bld) [#/Vol] 0.0 10*3/uL Normal 0.0-0.2 [facility] Comment on above: Performed By: #### S CAN CBC #### [facility] [address] [place] [address] Automated blood monocyte cou ntOrdered By: Carmen Wallisnoam on 04-27-2023 Monocytes (Bld) [#/Vol] 0.4 10*3/uL Normal 0.0-0.8 [facility] Comment on above: Performed By: #### S CAN CBC #### [address] Automated eosinophil %Ordere d By: Carmen Wallisnoam on 04-27-2023 Eosinophils/100 WBC (Bld) 0.7 % Normal . [facility] Comment on above: Performed By: #### S CAN CBC #### [address] Automated eosinophil countOr dered By: Carmen Merrilldamion on 04-27-2023 Eosinophils (Bld) [#/Vol] 0.0 10*3/uL Normal 0.0-0.45 [facility] Comment on above: Performed By: #### S CAN CBC #### [facility] [address] Automated monocyte %Ordered By: Carmen Good on 04-27-2023 Monocytes/100 WBC (Bld) 6.3 % Normal . [facility] Comment on above: Performed By: #### S CAN CBC #### [facility] [address] Automated neutrophil %Ordere d By: Carmen Good on 04-27-2023 Neutrophils/100 WBC (Bld) 77.5 % Normal . [facility] Comment on above: Performed By: #### S CAN CBC #### [facility] [address] Bilirubin.total [Mass/volume ] in Serum or PlasmaOrdered By: Carmen Good on 04-27-2023 Bilirubin [Mass/Vol] 1.5 mg/dL High 0.3-1.0 [facility] Comment on above: Samples from patient s who have taken Naproxen have shown spurious elevation in Total Bilirubin levels. A metabolite of Naproxen, O-desmethylnaproxen, has been shown to interfere with the Jendrassik-Grof method for measuring Total Bilirubin. Result Comment: Samp les from patients who have taken Naproxen have shown spurious elevation in Total Bilirubin levels. A metabolite of Naproxen, O-desmethylnaproxen, has been shown to interfere with the Jendrassik-Grof method for measuring Total Bilirubin. Performed By: #### C MP, LACTIC #### [place] [address] [place] Calcium [Mass/volume] in Ser um or PlasmaOrdered By: Carmen Good on 04-27-2023 Calcium [Mass/Vol] 9.2 mg/dL Normal 8.6-10.3 [facility] Comment on above: Performed By: #### C MP, LACTIC #### [place] [address] [place] Carbon dioxide, total [Moles /volume] in Serum or PlasmaOrdered By: Carmen Merrillepert on 04-27-2023 CO2 [Moles/Vol] 28.7 mmol/L Normal 21.0-31.0 [facility] Comment on above: Performed By: #### C MP, LACTIC #### [facility] [address] Chloride [Moles/volume] in S dion or PlasmaOrdered By: Carmen Florentino on 04-27-2023 Chloride [Moles/Vol] 93 mmol/L Low 98-107 [facility] Comment on above: Performed By: #### C MP, LACTIC #### [facility] [address] Comprehensive Metabolic Pane simon 04-27-2023 Albumin [Mass/Vol] 4.5 g/dL Normal 3.5-5.7 [facility] Comment on above: Performed By: #### C MP, LACTIC #### [place] [address] [place] Creatinine Clr Calc Pharmacy 158.54 Normal [facility] Comment on above: Result Comment: PERF ORMED BY: [place] [address] PATHOLOGIST INTERNET SALES ASSOCIATE ROSEMARY VASQUEZ M.D. Performed By: #### C MP, LACTIC #### [address] GFR/1.73 sq M.predicted MDRD (S/P/Bld) [Vol rate/Area] mL/min/{1.73_m2} Normal [facility] Comment on above: Performed By: #### C MP, LACTIC #### [place] [address] [place] Creatinine [Mass/volume] in Serum or PlasmaOrdered By: Carmen Florentino on 04-27-2023 Creatinine [Mass/Vol] 0.77 mg/dL Normal 0.70-1.30 [facility] Comment on above: Performed By: #### C MP, LACTIC #### [address] Erythrocyte distribution wid th [Ratio] by Automated countOrdered By: Carmen Florentino on 04-27-2023 Erythrocyte distribution width (RBC) [Ratio] 12.4 % Normal 12.0-14.8 [facility] Comment on above: Performed By: #### S CAN CBC #### [address] Erythrocytes [#/volume] in B lood by Automated countOrdered By: Carmen Florentino on 04-27-2023 RBC (Bld) [#/Vol] 5.08 10*6/uL Normal 3.90-5.60 [facility] Comment on above: Performed By: #### S CAN CBC #### [address] Glucose [Mass/volume] in Ser um or PlasmaOrdered By: Carmen Good on 04-27-2023 Glucose [Mass/Vol] 98 mg/dL Normal 70-100 [facility] Comment on above: ADA recommended refe rence rangeRandom Glucose Reference Range is dependent on time and content of last meal. Glucose of more than 200 mg/dL in a nonstressed, ambulatory subject supports the diagnosis of Diabetes Mellitus. Result Comment: [place] om Glucose Reference Range is dependent on time and content of last meal. Glucose of more than 200 mg/dL in a nonstressed, ambulatory subject supports the diagnosis of Diabetes Mellitus. ADA recommended reference range Performed By: #### C MP, LACTIC #### [address] Hematocrit [Volume Fraction] of Blood by Automated countOrdered By: Carmen Good on 04-27-2023 Hematocrit (Bld) [Volume fraction] 46.0 % Normal 38.8-50.0 [facility] Comment on above: Performed By: #### S CAN CBC #### [address] Hemoglobin [Mass/volume] in BloodOrdered By: Carmen Good on 04-27-2023 Hemoglobin (Bld) [Mass/Vol] 16.3 g/dL Normal 13.0-17.0 [facility] Comment on above: Performed By: #### S CAN CBC #### [place] [address] [place] Lactate [Moles/volume] in Se rum or PlasmaOrdered By: Carmen Good on 04-27-2023 Lactate [Moles/Vol] 1.0 mmol/L Normal 0.5-2.2 [facility] Comment on above: Result Comment: PERF ORMED BY: [place] [address] PATHOLOGIST [employer] SALES ASSOCIATE ROSEMARY VASQUEZ M.D. Performed By: #### C MP, LACTIC #### [address] Leukocytes [#/volume] correc hilton for nucleated erythrocytes in Blood by Automated counOrdered By: Carmen Good on 04-27-2023 WBC corrected for nucl RBC Auto (Bld) [#/Vol] 5.9 10*3/uL 4.1-10.5 [facility] Comment on above: WBC, PLT, MPV result s from NaCit specimen due to plt clumping in EDTA specimen Leukocytes [#/volume] in Blo od by Automated countOrdered By: Carmen Good on 04-27-2023 WBC (Bld) [#/Vol] 5.9 10*3/uL Normal 4.1-10.5 [facility] Comment on above: WBC, PLT, MPV result s from NaCit specimen due to plt clumping in EDTA specimen Result Comment: WBC, PLT, MPV results from NaCit specimen due to plt clumping in EDTA specimen Performed By: #### S CAN CBC #### [place] [address] [place] Lymphocytes [#/volume] in Bl ood by Automated countOrdered By: Carmen Good on 04-27-2023 Lymphocytes (Bld) [#/Vol] 0.9 10*3/uL Low 1.00-4.8 [facility] Comment on above: Performed By: #### S CAN CBC #### [place] [address] [place] Lymphocytes/100 leukocytes i n Blood by Automated countOrdered By: Carmen Good on 04-27-2023 Lymphocytes/100 WBC (Bld) 15.0 % Normal . [facility] Comment on above: Performed By: #### S CAN CBC #### [address] MCH [Entitic mass] by Automa hilton countOrdered By: Carmen Good on 04-27-2023 MCH (RBC) [Entitic mass] 32.1 pg Normal 27.5-35.2 [facility] Comment on above: Performed By: #### S CAN CBC #### [address] MCHC Auto (RBC) [Mass/Vol]Or dered By: Carmen Good on 04-27-2023 MCHC (RBC) [Mass/Vol] 35.4 g/dL 32.5-35.6 [facility] MCV [Entitic volume] by Auto mated countOrdered By: Carmen Good on 04-27-2023 MCV (RBC) [Entitic vol] 90.5 fL Normal 83.5-101 [facility] Comment on above: Performed By: #### S CAN CBC #### [address] Microcytes LM Ql (Bld)Ordere d By: Carmen Good on 04-27-2023 Microcytes Ql (Bld) Slight [facility] Monocyte distribution width [Entitic volume] in Blood by AutomatedOrdered By: Carmen Good on 04-27-2023 Monocyte distribution width Auto (Bld) [Entitic vol] 17.81 % 0.00-20.00 [facility] Neutrophils [#/volume] in Bl ood by Automated countOrdered By: Carmen Good on 04-27-2023 Neutrophils (Bld) [#/Vol] 4.7 10*3/uL Normal 1.8-7.7 [facility] Comment on above: Performed By: #### S CAN CBC #### [facility] [address] [place] [address] No Panel InformationOrdered By: Carmen Good on 04-27-2023 Estimated GFR (CKD-EPI) > 60.0 mL/Min [facility] Creatinine Clearance (Chem 158.54 [facility] Nucleated erythrocytes [Pres ence] in Blood by Automated countOrdered By: Carmen Good on 04-27-2023 Nucleated RBC Auto Ql (Bld) 0.3 /100{WBC} 0-0.5 [facility] Platelet adequacy [Presence] in Blood by Light microscopyOrdered By: Carmen Good on 04-27-2023 Platelets LM Ql (Bld) Normal Normal [facility] Platelet mean volume [Entiti c volume] in Blood by Automated countOrdered By: Carmen Good on 04-27-2023 Platelet mean volume (Bld) [Entitic vol] 7.8 fL Normal 6.6-10.1 [facility] Comment on above: WBC, PLT, MPV result s from NaCit specimen due to plt clumping in EDTA specimen Result Comment: WBC, PLT, MPV results from NaCit specimen due to plt clumping in EDTA specimen Performed By: #### S CAN CBC #### [facility] [address] Platelet morphology finding [Identifier] in BloodOrdered By: Carmen Good on 04-27-2023 Platelet morphology finding Nom (Bld) Normal Normal [facility] Platelets [#/volume] in Bloo d by Automated countOrdered By: Carmen Good on 04-27-2023 Platelets (Bld) [#/Vol] 231 10*3/uL Normal 150-450 [facility] Comment on above: WBC, PLT, MPV result s from NaCit specimen due to plt clumping in EDTA specimen Result Comment: WBC, PLT, MPV results from NaCit specimen due to plt clumping in EDTA specimen Performed By: #### S CAN CBC #### [facility] [address] [place] [address] [place] Poikilocytosis [Presence] in Blood by Light microscopyOrdered By: Carmen Good on 04-27-2023 Poikilocytosis LM Ql (Bld) Slight [facility] Potassium [Moles/volume] in Serum or PlasmaOrdered By: Carmen Florentino on 04-27-2023 Potassium [Moles/Vol] 3.6 mmol/L Normal 3.5-5.1 [facility] Comment on above: Performed By: #### C MP, LACTIC #### [address] Protein [Mass/volume] in Ser um or PlasmaOrdered By: Carmen Good on 04-27-2023 Protein [Mass/Vol] 7.3 g/dL Normal 6.4-8.9 [facility] Comment on above: Performed By: #### C MP, LACTIC #### [address] RBC morphologyOrdered By: Rosa Isela Good on 04-27-2023 RBC morphology finding Nom (Bld) N/A [facility] Red blood cell stomatocyte d etectionOrdered By: Carmen Good on 04-27-2023 Stomatocytes LM Ql (Bld) Slight [facility] Scan and CBCon 04-27-2023 Mean Corpuscular HGB Conc 35.4 g/dL Normal 32.5-35.6 [facility] Comment on above: Performed By: #### S CAN CBC #### [address] Microcytosis Slight Normal [facility] Comment on above: Performed By: #### S CAN CBC #### [place] [address] [place] Monocytes/100 WBC (Bld) 17.81 % Normal 0.00-20.00 [facility] Comment on above: Performed By: #### S CAN CBC #### [place] [address] [place] NRBC% 0.3 /100{WBC} Normal 0-0.5 [facility] Comment on above: Performed By: #### S CAN CBC #### [place] [address] [place] Platelet Estimate Normal Normal Normal [facility] Comment on above: Performed By: #### S CAN CBC #### [address] Platelet Morphology Normal Normal Normal [facility] Comment on above: Result Comment: PERF ORMED BY: [place] [address] PATHOLOGIST INTERNET SALES ASSOCIATE ROSEMARY VASQUEZ M.D. Performed By: #### S CAN CBC #### [address] Poikilocytosis Slight Normal [facility] Comment on above: Performed By: #### S CAN CBC #### [address] Stomatocytes Slight Normal [facility] Comment on above: Performed By: #### S CAN CBC #### [address] Toxic Vacuolation Slight Normal [facility] Comment on above: Performed By: #### S CAN CBC #### [address] Serum globulin measurement b y calculation (mass/volume)Ordered By: Carmen Good on 04-27-2023 Globulin (S) [Mass/Vol] 2.8 g/dL Normal [facility] Comment on above: Performed By: #### C MP, LACTIC #### [address] Serum or plasma albumin/glob ulin mass ratioOrdered By: Carmen Good on 04-27-2023 Albumin/Globulin [Mass ratio] 1.6 {ratio} Normal [facility] Comment on above: Performed By: #### C MP, LACTIC #### [address] Serum or plasma anion gap de terminationOrdered By: Carmen Good on 04-27-2023 Anion gap [Moles/Vol] 11.9 mmol/L Normal 6.0-15.0 [facility] Comment on above: Performed By: #### C MP, LACTIC #### [facility] [address] [place] [address] [place] Sodium [Moles/volume] in Ser um or PlasmaOrdered By: Carmen Good on 04-27-2023 Sodium [Moles/Vol] 130 mmol/L Low 136-145 [facility] Comment on above: Performed By: #### C MP, LACTIC #### [facility] [address] [place] [address] Toxic leukocyte vacuolation detectionOrdered By: Carmen Good on 04-27-2023 Leukocyte toxic vacuoles LM Ql (Bld) Slight [facility] Urea nitrogen [Mass/volume] in Serum or PlasmaOrdered By: Carmen Good on 04-27-2023 Urea nitrogen [Mass/Vol] 3 mg/dL Low 7-25 [facility] Comment on above: Performed By: #### C MP, LACTIC #### [facility] [address] [place] [address] ECG 12 lead ECGon 04-25-2023 ECG 12 lead ECG [facility] [place] [address] [place] [address] Electrocardiograph Report Signed Patient: John Starr MR#: [id number] 51 : 1995 Acct:[id number] Age/Sex: 27 / M ADM Date: 04/25/23 Loc: ER Room: Type: [facility] ER Attending Dr: Ordering Provider: Cornell Green DO Date of Service: 04/25/2305/07/1416 ECG/ECG 12 lead ECG: Headache Copies to: Test Reason : Blood Pressure : 168/120 mmHG Vent. Rate : 070 BPM Atrial Rate : 070 BPM P-R Int : 128 ms QRS Dur : 094 ms QT Int : 390 ms P-R-T Axes : 070 082 074 degrees QTc Int : 421 ms Normal sinus rhythm Early repolarization Normal ECG When compared with ECG of 21-APR-2022 14:11, No significant change was found Confirmed by CORNELL GREEN DO ([id number]) on 04/26/2023 6:20:39 AM Referred By: Electronically Signed By:CORNELL TUPA DO Transcribed By: MUS Signed By Cornell Green DO 0620 Normal [facility] Covid-19 PCR (CVDTBH)on 05-15 SARS-CoV-2 (COVID-19) RNA SOLANGE+probe Ql (Unsp spec) Not detected Normal NOT DETECTED [facility] Comment on above: Result Comment: This test is not yet approved or cleared by the [place] States FDA. When there are no FDA-approved or cleared tests available, and other criteria are met, FDA can make tests available under an emergency access mechanism called an Emergency Use Authorization (EUA). The EUA for this test is supported by the [place] of Health and Human Service's (HHS's) declaration that circumstances exist to justify the emergency use of in vitro diagnostics for the detection and/or diagnosis of the virus that causes COVID-19. This EUA will remain in effect (meaning this test can be used) for the duration of the COVID-19 declaration justifying emergency of IVDs, unless it is terminated or revoked by FDA (after which the test may no longer be used). When diagnostic testing is negative, the possibility of a false negative should be considered in the context of a patient's recent exposures and the presence of clinical signs and symptoms consistent with SARS-CoV-2. Performed By: #### C VDTBH #### [facility] [address] [address] [address] Matteo Hale INFLUENZA A AND B AGon 05-30 [facility] SEE BELOW Normal [facility] Comment on above: Result Comment: Nega tive for Flu A protein angiten. Infection due to Flu A cannot be ruled out. Flu A angiten in the sample may be below the detection limit of the test. Performed By: #### I NFLUAB ####[facility] [address] [address]Dr. Matteo [facility] Normal [facility] Comment on above: Result Comment: Nega tive for Flu B protein antigen. Infection due to Flu B cannot be ruled out. Flu B antigen in the sample may be below the detection limit of the test. Performed By: #### I NFLUAB ####[facility] [address] [id number]. Matteo Hale INFLUENZA A AG Negative Normal NEGATIVE SEE COMMENT [facility] Comment on above: Performed By: #### I NFLUAB ####[facility] [address] [place], [place] [address]Yg. Matteo Hale INFLUENZA B AG Negative Normal NEGATIVE SEE COMMENT [facility] Comment on above: Performed By: #### I NFLUAB ####[facility] [address] [place], [place] [id number]. Matteo Hale INTERNAL CONTROLS Within Normal Limits Normal Within Normal Limits [facility] Comment on above: Performed By: #### I NFLUAB ####[facility] [address] [place], [place] [address]Ou. Matteo Hale Albumin [Mass/volume] in Ser um or PlasmaOrdered By: Rigo Sy on 04-21-2022 Albumin [Mass/Vol] 4.2 g/dL 3.2-5.5 [facility] Basophils Auto (Bld) [#/Vol] Ordered By: Rigo Sy on 04-21-2022 Basophils (Bld) [#/Vol] 0.0 10*3/uL 0.0-0.2 [facility] Basophils/100 WBC Auto (Bld) Ordered By: Rigo Sy on 04-21-2022 Basophils/100 WBC (Bld) 0.4 % . [facility] Creatinine and Glomerular fi ltration rate.predicted panel (S/P/Bld)Ordered By: Rigo Sy on 04-21-2022 Creatinine [Mass/Vol] 1.13 mg/dL 0.64-1.27 [facility] Eosinophils Auto (Bld) [#/Vo l]Ordered By: Rigo Sy on 04-21-2022 Eosinophils (Bld) [#/Vol] 0.1 10*3/uL 0.0-0.45 [facility] Eosinophils/100 WBC Auto (Bl d)Ordered By: Rigo Sy on 04-21-2022 Eosinophils/100 WBC (Bld) 1.0 % . [facility] Erythrocyte distribution wid th Auto (RBC) [Ratio]Ordered By: Rigo Sy on 04-21-2022 Erythrocyte distribution width (RBC) [Ratio] 12.5 % 12.0-14.8 [facility] Estimated glomerular filtrat ion rate (GFR) non- AmericanOrdered By: Rigo Sy on 04-21-2022 GFR/1.73 sq M.predicted among non-blacks MDRD (S/P/Bld) [Vol rate/Area] > 60 mL/Min [facility] Globulin Calc (S) [Mass/Vol] Ordered By: Rigo Sy on 04-21-2022 Globulin (S) [Mass/Vol] 2.8 g/dL [facility] Hematocrit Auto (Bld) [Volum e fraction]Ordered By: Rigo Sy on 04-21-2022 Hematocrit (Bld) [Volume fraction] 50.3 % 38.8-50.0 [facility] Hemoglobin [Mass/volume] in BloodOrdered By: Rigo Sy on 04-21-2022 Hemoglobin (Bld) [Mass/Vol] 17.5 g/dL 13.0-17.0 [facility] - Hematology and Cell countsOrdered By: Rigo Sy on 04-21-2022 Nucleated RBC/100 WBC (Bld) [Ratio] 0.1 % 0-0.5 [facility] Leukocytes [#/volume] in Blo od by Automated countOrdered By: Rigo Sy on 04-21-2022 WBC (Bld) [#/Vol] 8.0 10*3/uL 4.5-11.0 [facility] Lymphocytes Auto (Bld) [#/Vo l]Ordered By: Rigo Sy on 04-21-2022 Lymphocytes (Bld) [#/Vol] 1.2 10*3/uL 1.00-4.8 [facility] Lymphocytes/100 WBC Auto (Bl d)Ordered By: Rigo Sy on 04-21-2022 Lymphocytes/100 WBC (Bld) 15.4 % . [facility] MCH Auto (RBC) [Entitic mass ]Ordered By: Rigo Sy on 04-21-2022 MCH (RBC) [Entitic mass] 31.6 pg 27.5-35.2 [facility] MCHC Auto (RBC) [Mass/Vol]Or dered By: Rigo Sy on 04-21-2022 MCHC (RBC) [Mass/Vol] 34.8 g/dL 32.5-35.6 [facility] MCV Auto (RBC) [Entitic vol] Ordered By: Rigo Sy on 04-21-2022 MCV (RBC) [Entitic vol] 90.8 fL 83.5-101 [facility] Monocytes Auto (Bld) [#/Vol] Ordered By: Rigo Sy on 04-21-2022 Monocytes (Bld) [#/Vol] 0.6 10*3/uL 0.0-0.8 [facility] Monocytes/100 WBC Auto (Bld) Ordered By: Rigo Sy on 04-21-2022 Monocytes/100 WBC (Bld) 7.7 % . [facility] Neutrophils Auto (Bld) [#/Vo l]Ordered By: Rigo Sy on 04-21-2022 Neutrophils (Bld) [#/Vol] 6.1 10*3/uL 1.8-7.7 [facility] Neutrophils/100 WBC Auto (Bl d)Ordered By: Rigo Sy on 04-21-2022 Neutrophils/100 WBC (Bld) 75.5 % . [facility] No Panel InformationOrdered By: Rigo Sy on 04-21-2022 Estimated GFR () > 60 mL/Min [facility] Comment on above: GFR estimated refere nce range: According to KDOQI guidelines, <60 ml/min/1.73m2 is sufficient to diagnose a patient with chronic kidney disease. Pharmacy Creatinine Clearance (Chem 105.15 [facility] Platelet mean volume Auto (B ld) [Entitic vol]Ordered By: Rigo Sy on 04-21-2022 Platelet mean volume (Bld) [Entitic vol] 9.9 fL 6.6-10.1 [facility] Platelets Auto (Bld) [#/Vol] Ordered By: Rigo Sy on 04-21-2022 Platelets (Bld) [#/Vol] 226 10*3/uL 150-450 [facility] Protein [Mass/volume] in Ser um or PlasmaOrdered By: Rigo Sy on 04-21-2022 Protein [Mass/Vol] 7.0 g/dL 6.1-7.9 [facility] RBC Auto (Bld) [#/Vol]Ordere d By: Rigo Sy on 04-21-2022 RBC (Bld) [#/Vol] 5.54 10*6/uL 3.90-5.60 [facility] Salicylates [Mass/volume] in Serum or PlasmaOrdered By: Rigo Sy on 04-21-2022 Salicylates [Mass/Vol] mg/dL 15.0-30.0 [facility] Comment on above: Patients treated wit h Sulfasalazine may generate a false high result for Salicylate.Patients treated with Sulfapyridine may generate a false low result for Salicylate. Serum or plasma acetaminophe n measurement (mass/volume)Ordered By: Rigo Sy on 04-21-2022 Acetaminophen [Mass/Vol] 44.2 ug/mL 10.0-30.0 [facility] Comment on above: 4 hours after dose, critical > 24316 hours after dose, critical > 40 Serum or plasma alanine roland otransferase measurement without P-5'-P (enzymatic activiOrdered By: Rigo Sy on 04-21-2022 ALT No additional P-5'-P [Catalytic activity/Vol] 19 U/L 10-60 [facility] Serum or plasma albumin/glob ulin mass ratioOrdered By: Rigo Sy on 04-21-2022 Albumin/Globulin [Mass ratio] 1.5 {ratio} [facility] Serum or plasma alkaline praveen sphatase measurement (enzymatic activity/volume)Ordered By: Rigo Sy on 04-21-2022 ALP [Catalytic activity/Vol] 64 U/L 32-92 [facility] Serum or plasma anion gap de terminationOrdered By: Rigo Sy on 04-21-2022 Anion gap [Moles/Vol] 13.4 mmol/L 6.0-15.0 [facility] Serum or plasma aspartate am inotransferase measurement (enzymatic activity/volume)Ordered By: Rigo Sy on 04-21-2022 AST [Catalytic activity/Vol] 22 U/L 10-42 [facility] Serum or plasma calcium liz urement (mass/volume)Ordered By: Rigo Sy on 04-21-2022 Calcium [Mass/Vol] 9.3 mg/dL 8.2-10.2 [facility] Serum or plasma chloride maik surement (moles/volume)Ordered By: Rigo Sy on 04-21-2022 Chloride [Moles/Vol] 100 mmol/L 95-114 [facility] Serum or plasma ethanol liz urement (mass/volume)Ordered By: Rigo Sy on 04-21-2022 Ethanol [Mass/Vol] mg/dL [facility] Ethanol [Mass/Vol] TNP [facility] Comment on above: Test not performed Serum or plasma glucose liz urement (mass/volume)Ordered By: Rigo Sy on 04-21-2022 Glucose [Mass/Vol] 106 mg/dL 70-100 [facility] Comment on above: ADA recommended refe rence rangeRandom Glucose Reference Range is dependent on time and content of last meal. Glucose of more than 200 mg/dL in a nonstressed, ambulatory subject supports the diagnosis of Diabetes Mellitus. Serum or plasma potassium me asurement (moles/volume)Ordered By: Rigo Sy on 04-21-2022 Potassium [Moles/Vol] 4.3 mmol/L 3.5-5.1 [facility] Serum or plasma sodium measu rement (moles/volume)Ordered By: Rigo Sy on 04-21-2022 Sodium [Moles/Vol] 135 mmol/L 136-146 [facility] Serum or plasma total biliru bin measurement (mass/volume)Ordered By: Rigo Sy on 04-21-2022 Bilirubin [Mass/Vol] 1.3 mg/dL 0.3-1.2 [facility] Comment on above: Samples from patient s who have taken Naproxen have shown spurious elevation in Total Bilirubin levels. A metabolite of Naproxen, O-desmethylnaproxen, has been shown to interfere with the Jendrassik-Grof method for measuring Total Bilirubin. Serum or plasma total carbon dioxide measurement (moles/volume)Ordered By: Rigo Sy on 04-21-2022 CO2 [Moles/Vol] 25.9 mmol/L 22.0-30.0 [facility] Serum or plasma urea nitroge n measurement (mass/volume)Ordered By: Rigo Sy on 04-21-2022 Urea nitrogen [Mass/Vol] 5 mg/dL 03-07 [facility] POINT OF CARE GLUCOSEon 02-13 Glucose [Mass/Vol] 89 mg/dL Normal 74-106 [facility] Comment on above: Performed By: #### P OCGLUC #### [facility] [address] [address] [address] Matteo Hale Glucose [Mass/Vol] 94 mg/dL Normal 74-106 [facility] Comment on above: Performed By: #### P OCGLUC #### [facility] [address] [address] [address] Matteo Hale Covid-19 PCR (CVDTB)on SARS-CoV-2 (COVID-19) RNA SOLANGE+probe Ql (Unsp spec) Not detected Normal NOT DETECTED [facility] Comment on above: Result Comment: This test is not yet approved or cleared by the [place] FDA. When there are no FDA-approved or cleared tests available, and other criteria are met, FDA can make tests available under an emergency access mechanism called an Emergency Use Authorization (EUA). The EUA for this test is supported by the [place] of Health and Human Service's (HHS's) declaration that circumstances exist to justify the emergency use of in vitro diagnostics for the detection and/or diagnosis of the virus that causes COVID-19. This EUA will remain in effect (meaning this test can be used) for the duration of the COVID-19 declaration justifying emergency of IVDs, unless it is terminated or revoked by FDA (after which the test may no longer be used). When diagnostic testing is negative, the possibility of a false negative should be considered in the context of a patient's recent exposures and the presence of clinical signs and symptoms consistent with SARS-CoV-2. Performed By: #### C [facility] #### [facility] [address] [place] [address] Dr. Matteo Hale MRI ANKLE RT WO CONon 2021 MRI ANKLE RT WO CON HISTORY: Chronic right ankle pain and instability. The patient reportedly had a sprain of the ankle approximately 6 months ago. Evaluate for injury of the anterior talofibular ligament and a peroneal tendon injury. MRI ANKLE RT WO CON: 02/03/2022 7:21 AM EDT COMPARISON: Radiographs right ankle 01/01/2022. TECHNIQUE: Multiplanar, multisequence MRI images of the ankle were obtained without contrast. FINDINGS: LIGAMENTS: The anterior talofibular ligament appears very thin at its talar attachment and is thickened and of low signal intensity at its attachment to the lateral malleolus. The calcaneofibular ligament appears thickened but of low signal intensity. The posterior talofibular ligament and distal tibiofibular ligaments appear within normal limits. The superior peroneal retinaculum is moderately thickened and of low signal intensity at its fibular attachment. The deltoid ligament complex appears within normal limits. TENDONS: There appears to be mild lateral subluxation of the peroneus longus tendon from the retromalleolar groove and there appears to be mild thickening and intermediate signal intensity of the tendon in this region suggestive of mild tendinopathy. However, no significant tear of the peroneal tendons is seen. The other tendons of the ankle appear within normal limits. SINUS TARSI AND TARSAL TUNNEL: No space-occupying mass is seen in the tarsal tunnel or the sinus tarsi. BONES AND JOINTS: The bone marrow signal intensity is age appropriate. No unstable osteochondral defect of the tibiotalar joint is identified. There is a small tibiotalar joint effusion. PLANTAR FASCIA: There is no abnormal thickening or abnormal signal intensity of the plantar fascia and there is no surrounding soft tissue edema to suggest plantar fasciitis. SOFT TISSUES: No significant soft tissue swelling is seen. IMPRESSION: 1. There are MRI findings most compatible with the sequela of a remote grade 3 sprain of the anterior talofibular ligament and remote grade 2 sprains of the calcaneofibular ligament and superior peroneal retinaculum. 2. Mild lateral subluxation of the peroneus longus tendon from the retromalleolar groove with probable mild focal tendinopathy of the tendon in this region. No tear of the visualized peroneal tendons is seen. 3. Small tibiotalar joint effusion without evidence of an osteochondral defect. Electronically authenticated by: CLEMENTINE CABRERA Date: 2022-02-04 08:19 Normal [facility] XR FOREIGN BODY EYEon 2021 XR FOREIGN BODY EYE EXAMINATION: XR FOREIGN BODY EYE HISTORY: Foreign body in eye COMPARISON: No relevant comparison available. FINDINGS: ORBITS: Negative for a metallic foreign body. OTHER: Negative. IMPRESSION: 1. No metallic foreign body within the orbits. Electronically authenticated by: BRENNON HEBERT Date: 2022-02-03 07:49 Normal [facility] XR TIB_FIB LT 2Von XR TIB_FIB LT 2V EXAM: XR TIB_FIB LT 2V HISTORY: Pain COMPARISON: 02/15/2021 TECHNIQUE: Frontal and lateral views of the left tibia and fibula are performed. FINDINGS: There is no acute fracture. The bony structures are intact. The soft tissues are unremarkable. Joint spaces are maintained. IMPRESSION: No acute bony abnormality. Electronically authenticated by: ALICIA DORAN Date: 2021-10-23 15:36 Normal [facility] ANKLE RIGHT 3 [facility] 06-13-20 21 ANKLE RIGHT 3 [facility] Department of Radiology [address] [place] [id number] Patient Name: JOHN STARR : 1995 Sex: M Age: Race: Other Pt. Location: [facility] Patient Status: E Ordered Date: 06/13/2021 8:40:00 PM Completed Date: 06/13/2021 08:45 PM Requesting Provider: JERI BLEVINS Attending Provider: JERI BLEVINS Report Copy To: Signs & Symptoms: Deformity History: Comments: evaluate for FX Exam: ANKLE RIGHT 3 VWS ANKLE RIGHT 3 S 06/13/2021 8:45 PM CLINICAL INDICATIONS: Deformity TECHNOLOGIST COMMENTS: Patient states he was at [employer] and injured right ankle while jumping on a trampoline. complains of right ankle swelling and pain QUESTION FOR THE RADIOLOGIST: evaluate for FX PROTOCOL: AP,Lateral and Oblique views were obtained. COMPARISON: None FINDINGS: Lateral soft tissue swelling without underlying bony abnormality. Cannot exclude widening of the lateral mortise. However, patient is rotated. No effusion. IMPRESSION: No evidence of fracture Electronically signed: Gini García. Transcribed by: [id number], User Resident: Electronically Signed by: GINI GARCÍA @ 06/13/2021 09:[address] [facility] Comment on above: Order Comment: evalu ate for FX Vital Signs Date Time Vital Sign Value Performing Clinician Facility 01-09-2024 21:18-0400 Body height 190.5 cm DO Nas Kuns Work Phone: [facility] 01-09-2024 21:18-0400 Body temperature 98.1 [degF] DO Nas Kuns Work Phone: [facility] 01-09-2024 21:18-0400 Body weight 66.75 kg DO Nas Kuns Work Phone: [facility] 01-09-2024 21:18-0400 Diastolic blood pressure 97 mm[Hg] DO Nas Kuns Work Phone: [facility] 01-09-2024 21:18-0400 Heart rate 68 /min DO Nas Kuns Work Phone: [facility] 01-09-2024 21:18-0400 Respiratory rate 20 /min DO Nas Kuns Work Phone: [facility] 01-09-2024 21:18-0400 SaO2% (BldA) [Mass fraction] 98 % DO Nas Kuns Work Phone: [facility] 01-09-2024 21:18-0400 Systolic blood pressure 142 mm[Hg] DO Nas Kuns Work Phone: [facility] 04-28-2023 21:31-0500 Body height 190.5 cm DO Nas Kuns Work Phone: [facility] 04-28-2023 21:31-0500 Body weight 74 kg DO Nas Kuns Work Phone: [facility] 04-28-2023 21:29-0500 Body temperature 98.1 [degF] DO Nas Kuns Work Phone: [facility] 04-28-2023 21:29-0500 Diastolic blood pressure 100 mm[Hg] DO Nas Kuns Work Phone: [facility] 04-28-2023 21:29-0500 Heart rate 69 /min DO Nas Kuns Work Phone: [facility] 04-28-2023 21:29-0500 Respiratory rate 18 /min DO Nas Kuns Work Phone: [facility] 04-28-2023 21:29-0500 SaO2% (BldA) [Mass fraction] 98 % DO Nas Kuns Work Phone: [facility] 04-28-2023 21:29-0500 Systolic blood pressure 177 mm[Hg] DO Nas Kuns Work Phone: [facility] 04-27-2023 15:11-0500 Diastolic blood pressure 66 mm[Hg] DO Nas Kuns Work Phone: [facility] 04-27-2023 15:11-0500 Heart rate 78 /min DO Nas Kuns Work Phone: [facility] 04-27-2023 15:11-0500 Respiratory rate 17 /min DO Nas Kuns Work Phone: [facility] 04-27-2023 15:11-0500 SaO2% (BldA) [Mass fraction] 99 % DO Nas Kuns Work Phone: [facility] 04-27-2023 15:11-0500 Systolic blood pressure 152 mm[Hg] DO Nas Kuns Work Phone: [facility] 04-27-2023 10:16-0500 Body height 190.5 cm DO Nas Kuns Work Phone: [facility] 04-27-2023 10:16-0500 Body temperature 97.7 [degF] DO Nas Kuns Work Phone: [facility] 04-27-2023 10:16-0500 Body weight 77.1 kg DO Nas Kuns Work Phone: [facility] 04-26-2023 22:50-0500 Diastolic blood pressure 99 mm[Hg] DO Nas Kuns Work Phone: [facility] 04-26-2023 22:50-0500 Heart rate 70 /min DO Nas Kuns Work Phone: [facility] 04-26-2023 22:50-0500 Respiratory rate 16 /min DO Nas Kuns Work Phone: [facility] 04-26-2023 22:50-0500 SaO2% (BldA) [Mass fraction] 98 % DO Nas Kuns Work Phone: [facility] 04-26-2023 22:50-0500 Systolic blood pressure 155 mm[Hg] DO Nas Kuns Work Phone: [facility] 04-26-2023 22:02-0500 Body height 190.5 cm DO Nas Kuns Work Phone: [facility] 04-26-2023 22:02-0500 Body temperature 97.9 [degF] DO Nas Kuns Work Phone: [facility] 04-26-2023 22:02-0500 Body weight 76 kg DO Nas Kuns Work Phone: [facility] 04-26-2023 15:26-0500 Body temperature 98.3 [degF] DO Nas Kuns Work Phone: [facility] 04-26-2023 15:26-0500 Diastolic blood pressure 102 mm[Hg] DO Nas Kuns Work Phone: [facility] 04-26-2023 15:26-0500 Heart rate 71 /min DO Nas Kuns Work Phone: [facility] 04-26-2023 15:26-0500 Respiratory rate 16 /min DO Nas Kuns Work Phone: [facility] 04-26-2023 15:26-0500 SaO2% (BldA) [Mass fraction] 99 % DO Nas Kuns Work Phone: [facility] 04-26-2023 15:26-0500 Systolic blood pressure 182 mm[Hg] DO Nas Kuns Work Phone: [facility] 04-26-2023 15:25-0500 Body height 190.5 cm DO Nas Kuns Work Phone: [facility] 04-26-2023 15:25-0500 Body weight 75.8 kg DO Nas Kuns Work Phone: [facility] 04-25-2023 14:20-0500 Heart rate 70 /min DO Nas Kuns Work Phone: [facility] 04-25-2023 14:14-0500 Body height 190.5 cm DO Nas Kuns Work Phone: [facility] 04-25-2023 14:14-0500 Body temperature 98.2 [degF] DO Nas Kuns Work Phone: [facility] 04-25-2023 14:14-0500 Body weight 71.85 kg DO Nas Kuns Work Phone: [facility] 04-25-2023 14:14-0500 Diastolic blood pressure 130 mm[Hg] DO Nas Kuns Work Phone: [facility] 04-25-2023 14:14-0500 Respiratory rate 18 /min DO Nas Kuns Work Phone: [facility] 04-25-2023 14:14-0500 SaO2% (BldA) [Mass fraction] 97 % DO Nas Pierres Work Phone: [facility] 04-25-2023 14:14-0500 Systolic blood pressure 168 mm[Hg] DO Nas Pierres Work Phone: [facility] 03-12-2023 23:57-0400 Body height 190.5 cm DO Naselidia Jays Work Phone: [facility] 03-12-2023 23:57-0400 Body weight 71.7 kg DO Naselidia Jays Work Phone: [facility] 03-12-2023 23:56-0400 Body temperature 98.8 [degF] DO Nas Pierres Work Phone: [facility] 03-12-2023 23:56-0400 Diastolic blood pressure 89 mm[Hg] DO Nas Kuns Work Phone: [facility] 03-12-2023 23:56-0400 Heart rate 70 /min DO Nas Kuns Work Phone: [facility] 03-12-2023 23:56-0400 Respiratory rate 19 /min DO Nas Kuns Work Phone: [facility] 03-12-2023 23:56-0400 SaO2% (BldA) [Mass fraction] 98 % DO Nas Kuns Work Phone: [facility] 03-12-2023 23:56-0400 Systolic blood pressure 131 mm[Hg] DO Nas Kuns Work Phone: [facility] 01-24-2023 17:56-0400 Body temperature 98.6 [degF] DO Nas Kuns Work Phone: [facility] 01-24-2023 17:56-0400 Diastolic blood pressure 94 mm[Hg] DO Nas Kuns Work Phone: [facility] 01-24-2023 17:56-0400 Heart rate 85 /min DO Nas Kuns Work Phone: [facility] 01-24-2023 17:56-0400 Respiratory rate 20 /min DO Nas Kuns Work Phone: [facility] 01-24-2023 17:56-0400 SaO2% (BldA) [Mass fraction] 97 % DO Nas Kuns Work Phone: [facility] 01-24-2023 17:56-0400 Systolic blood pressure 143 mm[Hg] DO Nas Kuns Work Phone: [facility] 01-24-2023 17:55-0400 Body height 190.5 cm DO Nas Kuns Work Phone: [facility] 01-24-2023 17:55-0400 Body weight 72.5 kg DO Nas Kuns Work Phone: [facility] 12-09-2022 08:50-0400 Body height 190.5 cm DO Nas Kuns Work Phone: [facility] 12-09-2022 08:50-0400 Body temperature 97.8 [degF] DO Nas Kuns Work Phone: [facility] 12-09-2022 08:50-0400 Body weight 77.11 kg DO Nas Kuns Work Phone: [facility] 12-09-2022 08:50-0400 Diastolic blood pressure 78 mm[Hg] DO Nas Kuns Work Phone: [facility] 12-09-2022 08:50-0400 Heart rate 62 /min DO Nas Kuns Work Phone: [facility] 12-09-2022 08:50-0400 Respiratory rate 18 /min DO Nas Kuns Work Phone: [facility] 12-09-2022 08:50-0400 SaO2% (BldA) [Mass fraction] 100 % DO Nas Kuns Work Phone: [facility] 12-09-2022 08:50-0400 Systolic blood pressure 120 mm[Hg] DO Nas Kuns Work Phone: [facility] 12-02-2022 16:23-0400 Body height 190.5 cm DO Nas Kuns Work Phone: [facility] 12-02-2022 16:23-0400 Body temperature 98 [degF] DO Nas Kuns Work Phone: [facility] 12-02-2022 16:23-0400 Body weight 71.85 kg DO Nas Kuns Work Phone: [facility] 12-02-2022 16:23-0400 Diastolic blood pressure 79 mm[Hg] DO Nas Kuns Work Phone: [facility] 12-02-2022 16:23-0400 Heart rate 89 /min DO Nas Kuns Work Phone: [facility] 12-02-2022 16:23-0400 Respiratory rate 18 /min DO Nas Kuns Work Phone: [facility] 12-02-2022 16:23-0400 SaO2% (BldA) [Mass fraction] 98 % DO Nas Pierres Work Phone: [facility] 12-02-2022 16:23-0400 Systolic blood pressure 167 mm[Hg] DO Nas Kuns Work Phone: [facility] 04-21-2022 14:00-0500 Diastolic blood pressure 81 mm[Hg] DO Nas Kuns Work Phone: [facility] 04-21-2022 14:00-0500 Heart rate 84 /min DO Nas Pierres Work Phone: [facility] 04-21-2022 14:00-0500 Respiratory rate 18 /min DO Naselidia Jays Work Phone: [facility] 04-21-2022 14:00-0500 SaO2% (BldA) [Mass fraction] 97 % DO Nas Pierres Work Phone: [facility] 04-21-2022 14:00-0500 Systolic blood pressure 137 mm[Hg] DO Nas Pierres Work Phone: [facility] 04-21-2022 06:37-0500 Body height 190.5 cm DO Naselidia Jays Work Phone: [facility] 04-21-2022 06:37-0500 Body temperature 98.6 [degF] DO Naselidia Jays Work Phone: [facility] 04-21-2022 06:37-0500 Body weight 74.38 kg DO Nas Pierres Work Phone: [facility] 03-21-2022 11:00-0400 Body height 187.96 cm Naselidia Jays Other [facility] Other 03-21-2022 11:00-0400 Body mass index (BMI) [Ratio] 21.18 kg/m2 Naselidia Jays Other [employer] Other 03-21-2022 11:00-0400 Body weight 74.84 kg Nas Farrell Other [employer] Other 03-21-2022 11:00-0400 Diastolic blood pressure 74 mm[Hg] Nas Jami Other [employer] Other 03-21-2022 11:00-0400 Respiratory rate 16 /min Nas Farrell Other [employer] Other 03-21-2022 11:00-0400 SaO2% (BldA) [Mass fraction] 98 % Nas Farrell Other [employer] Other 03-21-2022 11:00-0400 Systolic blood pressure 108 mm[Hg] Nas Farrell Other [employer] Other 02-21-2022 08:30-0400 Body height 187.96 cm Nas Jayvanesa Other [employer] Other 02-21-2022 08:30-0400 Body mass index (BMI) [Ratio] 21.05 kg/m2 Nas Jami Other [employer] Other 02-21-2022 08:30-0400 Body weight 74.39 kg Nas Jami Other [employer] Other 02-21-2022 08:30-0400 Diastolic blood pressure 95 mm[Hg] Nas Jays Other [employer] Other 02-21-2022 08:30-0400 Respiratory rate 16 /min Nas Farrell Other [employer] Other 02-21-2022 08:30-0400 SaO2% (BldA) [Mass fraction] 98 % Naselidia Jayvanesa Other [employer] Other 02-21-2022 08:30-0400 Systolic blood pressure 125 mm[Hg] Nas Farrell Other [employer] Other 12-19-2021 16:00-0400 Body height 187.96 cm Nas Farrell Other [employer] Other 12-19-2021 16:00-0400 Body mass index (BMI) [Ratio] 21.44 kg/m2 Nas Farrell Other [employer] Other 12-19-2021 16:00-0400 Body weight 75.75 kg Nas Farrell Other [employer] Other 12-19-2021 16:00-0400 Diastolic blood pressure 98 mm[Hg] Naselidia Jayvanesa Other [employer] Other 12-19-2021 16:00-0400 Respiratory rate 18 /min Nas Farrell Other [employer] Other 12-19-2021 16:00-0400 SaO2% (BldA) [Mass fraction] 87 % Nas Farrell Other [employer] Other 12-19-2021 16:00-0400 Systolic blood pressure 134 mm[Hg] Nas Farrell Other [employer] Other 01-07-2022 08:30-0500 Body height 187.96 cm Nas Farrell Other [employer] Other 06-21-2021 08:30-0500 Diastolic blood pressure 70 mm[Hg] Nas Farrell Other [employer] Other 06-21-2021 08:30-0500 Respiratory rate 16 /min Nas Jayvanesa Other [employer] Other 06-21-2021 08:30-0500 SaO2% (BldA) [Mass fraction] 99 % Nas Jami Other [employer] Other 06-21-2021 08:30-0500 Systolic blood pressure 112 mm[Hg] Nas Pierrevanesa Other [employer] Other Encounters Encounter Date Encounter Type Care Provider Facility Start: 01-18-2024 End: 01-18-2024 ambulatory DO Nas Farrell Work Phone: [facility] Work Phone: Start: 01-18-2024 End: 01-18-2024 Patient encounter procedure DO Nas Farrell Work Phone: [facility] Work Phone: Start: 01-09-2024 End: 01-10-2024 Emergency department patient visit DO Nas Farrell Work Phone: [facility] Work Phone: Start: 11-11-2023 End: 11-12-2023 ambulatory Jaciel CERVANTES Facility:[facility] Start: 10-20-2023 End: 10-20-2023 ambulatory Luis Jackson Caspar Facility:[facility] Start: 06-17-2023 End: 06-17-2023 ambulatory Nas Farrell Other [employer] Other Start: 06-17-2023 Telephone encounter [facility] Start: 05-25-2023 End: 05-25-2023 ambulatory Nas Pierervanesa Other [facility] Other Start: 05-25-2023 Tele[facility] Start: 04-29-2023 End: 04-29-2023 Emergency department patient visit Michael Bond Jr Facility:[facility] Start: 04-28-2023 End: 04-28-2023 Emergency department patient visit DO Naselidia Jayvanesa Work Phone: [facility] Work Phone: Start: 04-27-2023 End: 04-27-2023 Emergency department patient visit DO Nas Farrell Work Phone: [facility] Work Phone: Start: 04-26-2023 End: 04-26-2023 Emergency department patient visit DO Nas Farrell Work Phone: [facility] Work Phone: Start: 04-26-2023 End: 04-26-2023 Emergency department patient visit DO Nas Farrell Work Phone: [facility] Work Phone: Start: 04-25-2023 End: 04-25-2023 Emergency department patient visit DO Nas Farrell Work Phone: [facility] Work Phone: Start: 03-12-2023 End: 03-13-2023 Emergency department patient visit DO Naselidia Farrell Work Phone: [facility] Work Phone: Start: 01-24-2023 End: 01-24-2023 Emergency department patient visit DO Nas Kuns Work Phone: [facility] Work Phone: Start: 12-09-2022 End: 12-09-2022 Emergency department patient visit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
--- NOTE | 2024-01-26 23:12 | ED_ITS ---
HPI HPI - Extremity Injury (Upper) General Chief Complaint: Extremity Injury, Upper Stated Complaint: UE INJURY Time Seen by Provider: 01/26/24 23:02 Source: patient Mode of arrival: walk-in Limitations: no limitations History of Present Illness HPI narrative: This 28-year-old male who had surgery for a boxer's fracture several years ago and was recently seen in follow-up by the orthopedist for pain and numbness in the right fourth and fifth fingers. The patient states he was recently seen for this and has an appointment for follow-up in 3 weeks. He was given a wrist splint at that time. He denies any additional injury. He states he needs at work note because he has recently gone back to work and when he hyperextends his right hand he has increased pain in the extremity. I asked him specifically what he was in the emergency department for tonight and he said want a work note into because he wants to increase flexibility in his hand. I explained to him that he would need to follow-up with orthopedics for a referral to physical therapy for this. He does not have an neck or back pain. Related Data Allergies Allergy/AdvReac Type Severity Reaction Status Date / Time Penicillins Allergy Severe Swelling Verified 01/26/24 22:38 of Lip/Tongue/Throat Opioid HPI Opioid Management Most Recent Pain and Opioid Data: No Data to Display Review of Systems 2 ROS Status of ROS 10 or more systems reviewed and unremark able except as noted in history and below [facility] Social History Smoking status: Current every day smoker Exam Narrative Exam Narrative: Vital signs and Nursing Notes reviewed: Vital signs reviewed and are stable General: Awake, alert, oriented, no acute distress, lying comfortably on the stretcher Neck: Nontender Chest: Lungs are clear to auscultation with good air entry, there is no wheezing rhonchi or rales appreciated no accessory muscle use, patient is speaking in complete sentences-no chest wall tenderness to palpation CVS: Regular rate and rhythm S1-S2, no murmurs rubs or gallops, pulses are brisk and equal bilaterallyd Extremities: Right hand is in a splint. Patient was asked to remove the splint. The hand is normal in appearance with no erythema or swelling. He is able to approximate thumb and all fingers, sensation is grossly intact, pulses are norm al. Patient is able to approximate thumb and all fingers Skin: Normal in appearance without rash,pallor, petechiae or purpura Neuro: No focal deficits Constitutional Vital Signs, click to edit/add: Last Vital Signs Temp 98.7 F 01/26/24 22:33 Pulse 68 01/26/24 22:33 Resp 18 01/26/24 22:33 BP 131/85 01/26/24 22:33 Pulse Ox 99 01/26/24 22:33 O2 Del Method Room Air 01/26/24 22:33 Course Vital Signs Vital signs: Vital Signs Temperature 98.7 F 01/26/24 22:33 Pulse Rate 68 01/26/24 22:33 Respiratory Rate 18 01/26/24 22:33 Blood Pressure 131/85 01/26/24 22:33 Pulse Oximetry 99 01/26/24 22:33 Oxygen Delivery Method Room Air 01/26/24 22:33 Temperature 98.7 F 01/26/24 22:33 Pulse Rate 68 01/26/24 22:33 Respiratory Rate 18 01/26/24 22:33 Blood Pressure 131/85 01/26/24 22:33 Pulse Oximetry 99 01/26/24 22:33 Oxygen Delivery Method Room Air 01/26/24 22:33 MDM - Extremity Injury (Upper) MDM Narrative Medical decision making narrative: This patient presents emergency department requesting a note for work and increase mobility in his right hand after having an injury several years ago requiring surgical repair. He has followed up with hand orthopedics and has an appointment again in 3 weeks. He was told to use a splint but states that since returning to work and having to hyperextend his hand he is having numbness and tingling in the right fourth and fifth fingers. His neuroexam is normal. He is not having any neck pain. He was given an ibuProfen and a prescription of ibuprofen and a work note. Discharge Plan Discharge Stand Alone Forms: Portal Instructions Chief Complaint: Extremity Injury, Upper Clinical Impression: Hand pain, right Patient Disposition: Home, Self-Care Time of Disposition Decision: 23:10 Condition: Good Print Language: Bangladeshi Instructions: Arthralgia (ED) Referrals: Nas Farrell DO [Primary Care Provider] - 1 week
[2024-01-26] MEDS: IBUPROFEN 600 MG TABLET PO (23:30)
[2024-01-26 23:32] VITALS: BP 129/79; PULSE 70; O2SAT 98
== END 2024-01-26 23:32 | disposition home or self-care (01) ==
PROVIDERS: Emergency Provider Emergency Medicine; PCP Family Medicine
DX: M79.641 Pain in right hand (principal); F17.200 Nicotine dependence, unspecified, uncomplicated; Z87.81 Personal history of (healed) traumatic fracture
CPT/HCPCS: 99283

== ENCOUNTER 2024-02-07 02:26 | Emergency (ER) | payer BC, SELFPAY ==
[2024-02-07 02:31] VITALS: BP 136/90; PULSE 59; TEMP 36.6; O2SAT 98; BMI 20.6
--- OUTSIDE RECORDS SUMMARY | 2024-02-07 02:31 | XMS_ITS ---
Author Name Auto Generated Organization OHIP Support Name Relationship Address Phone Chaparrita, [place] [address] [phone] Moshe Starr Next of [address] [place] [address] + Chaparrit[place], [place] [address] [phone] Moshe Starr Next of Kin [address] [place] [address] + [place] [address] [phone] Moshe Starr Next of [address] [place] [address] + Chaparrit[place] [address] [phone] Moshe Starr Next of [address] [place] [address] + Chaparrita, [place] [address] [phone] Moshe Starr Next of [address] [place] [address] + Chaparrita, [place] [address] [phone] Moshe Starr Next of [address] [place] [address] + Chaparrita, [place] [address] [phone] Moshe Starr Next of [address] [place] [address] + [place] [address] [phone] Moshe Starr Next of Kin [address] [place] [address] + Care Team Providers Care Sand Mixer Operator Name Role Phone Criselda, Eloisa E Admitting Unavailable Bullimore, Eloisa E Attending Unavailable Kuns, Nas Primary Care Unavailable Kuns, Nas Primary Care Unavailable Michael Bond Jr Admitting Unavailable Michael Bond Jr Attending Unavailable Tupa, Cornell Meraz Admitting Unavailable Tupa, Cornell Meraz Attending Unavailable Kuns, Nas Primary Care Unavailable Temp, Provider Admitting Unavailable Temp, Provider Attending Unavailable Kuns, Nas Primary Care Unavailable Kuns, Nas Primary Care Unavailable Tupa, Cornell M Admitting Unavailable Tupa, Cornell Meraz Attending Unavailable Kuns, Nas Primary Care Unavailable Shaka Chavira Admitting Unavailable Shaka Chavira Attending Unavailable Emery Gao Admitting Unavailable Emery Gao Attending Unavailable Kuns, Nas Primary Care Unavailable KiepertCarmen Admitting Unavailable KiepertCarmen Attending Unavailable Kuns, Nas Primary Care Unavailable Provider, None Primary Care Unavailable Luis Perez Attending Unavailable Luis Perez Admitting Unavailable Jaceil CERVANTES Attending Unavailable PROBLEMS DATE TYPE CONDITION / CODE ATTENDING STATUS [facility] 04/28/2023 Unknown Other specified disorders of teeth and supporting structures / CE(ICD-10) Arthurbernarda, Eloisa E [facility] 04/27/2023 Unknown Periapical absce ss without sinus / CE(ICD-10) Carmen Good [facility] 04/26/2023 Unknown Nausea with vomi ting, unspecified / CE(ICD-10) Emery Gao [facility] 04/25/2023 Unknown Headache, unspec ified / CE(ICD-10) Cornell Green [facility] 03/12/2023 Unknown Anxiety disorder , unspecified / CE(ICD-10) Cornell Green [facility] PROCEDURES No Procedure Records Found RESULTS REGISTRATION Observed: 11/11/2023 2:01 PM Status: F Source: [facility] REPOSITORY [id number] PATIENT HANDOUT Observed: 10/20/2023 2:33 PM Status: C Source: [facility] Patient Education Materials Follows: ED PATIENT SUMMARY Observed: 10/20/2023 2:33 PM Status: F Source: [facility] ? Urgent C are [address] [place] [address] PATIENT DISCHARGE INSTRUCTIONS Patient Information Name: JOHN [...] and treatment you received today in the [facility] Emergency Department were for an urgent problem and are not intended as complete care. It is important for you to follow up with a doctor, nurse practitioner, or physician?s certified medical technician assistant for ongoing care. If your symptoms become [...] so we can reach you if necessary. [facility] Emergency Department has provided you with a complete list of medications post discharge. 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 Any specific questions regarding your chronic medications and dosages should be discussed with your primary care physician(s) and/or pharmacist. Visit Information Visit Diagnosis: Diagnoses This Visit Medical screening exam ([id number]) Physical exam (Z00.00) If you received any [...] Infection Yes Antibiotics Aren?t Always the Answer www.cdc.gov/getsmart GET SMART Know When Antibiotics Work U.S. Department of Health and Human Services Centers for Disease Control and Prevention February 2014 ED CLINICAL SUMMARY Observed: 10/20/2023 2:33 PM Status: F Source: [facility] REPOSITORY [facility] ? Urgent C are [address] [place] [address] Clinical Summary PERSON INFORMATION Name: NAPKA, JOHN CHAPARRITA Age: 27 Years Sex: MALE : 1995 MRN: Acct#: Visit Reason: Medical screening exam; [facility] Arrival: 10/20/2023 13:26:18 Discharge: 10/20/2023 14:15:00 LOS: 000 00:49 Check In: 10/20/2023 13:26:18 Checkout: 10/20/2023 14:15:00 Address: [address] [place] [id number] PCP: Provider, None PROVIDER INFORMATION Provider Role [...] DIAGNOSIS: Physical exam Patient Understands: Yes - Patient/family/caregiver verbalizes understanding of instructions given Comment: TRIAGE PANEL 10 Collected: 2:32 PM Status: F Source: [facility] REPOSITORY TYPE CODE TESTS RESULT OUT OF RANGE REFERENCE UNITS LAB [id number](LOIN C) Drug Screen Complete Collected Performed By: #### [id number] #### [facility] (DEFAULT) [address] [place] [address] URGENT CARE RECORD Observed: 10/20/2023 2:13 PM Status: C Source: [facility] ? Urgent C are [address] [place] [address] PATIENT DISCHARGE INSTRUCTIONS Patient Information Name: JOHN STARR CHAPARRITA Age: 27 Years Date of : 1995 Reason For Visit: Medical screening exam; [facility] Arrival Time: 10/20/2023 13:26:18 Primary Care Physician: Provider, None Attending Physician: Luis Perez PA-C Comment: Visit Diagnosis: Diagnoses This Visit Medical screening exam ([id number]) Physical exam (Z00.00) If you received any [...] and treatment you received today in the [facility] Care were for an urgent problem and are not intended as complete care. It is important for you to follow up with a doctor, nurse practitioner, or physician?s certified medical technician assistant for ongoing care. If your symptoms become [...] so we can reach you if necessary. [facility] has provided you with a complete list of medications post discharge. Please inform your ditching machine operating engineer/provider of your visit and for further instruction [...] Infection Yes Antibiotics Aren?t Always the Answer www.cdc.gov/getsmart GET SMART Know When Antibiotics Work U.S. Department of Health and Human Services Centers for Disease Control and Prevention February 2014 URGENT CARE NOTE- PROVIDER Observed: 12/2023 2:11 PM Status: F Source: [facility] REPOSITORY Patient: JOHN STARR Age: 27 years Sex: [...] . [Electronically Signed on: 10/20/2023 14:12 EDT] Luis Perez PA-C[Verified on: 10/20/2023 14:12 EDT] Luis Perez PA-C HISTORY AND PHYSICAL Observed: 1:26 PM Status: P Source: [facility] REPOSITORY [id number]#1.00OTGTIFF CONSENT FORMS Observed: 10/20/2023 1:26 PM Status: P Source: [facility] [id number]#1.00OTGTIFF LAB - TOXICOLOGY RESULTS Observed: 10/19 1:26 PM Status: F Source: [facility] REPOSITORY [id number]#1.00OTGTIFF SCAN AND CBC Collected: 04/27/2023 2:32 PM Status: F Source: [facility] REPOSITORY TYPE CODE TESTS RESULT OUT OF RANGE REFERENCE UNITS LAB WBC White Blood Count 5.9 Normal 4.1-10.5 10*3/ uL Result Comment: WBC, PLT, M PV results from NaCit specimen due to plt clumping in EDTA specimen LAB UNWBC Uncorrected WBC 5.9 Normal 4.1-10.5 10*3/uL Result Comment: WBC, PLT, MP V results from NaCit specimen due to plt clumping in EDTA specimen LAB RBC Red Blood Count 5.08 Normal 3.90-5.60 LAB HGB Hemoglobin 16.3 Normal 13.0-17.0 g/dL LAB HCT Hematocrit 46.0 Normal 38.8-50.0 % LAB MCV Mean Corpuscular Volume 90.5 Normal 83.5-101 fL LAB MCH Mean Corpuscular Hemoglobin 32.1 Normal 27.5-35.2 pg LAB MCHC Mean Corpuscular HGB Conc 35.4 Normal 32.5-35.6 g/dL LAB RDW Red Cell Distribution Width 12.4 Normal 12.0-14.8 % LAB PLT Platelet Count 231 Normal 150-450 10*3/uL Result Comment: WBC, PLT, MP V results from NaCit specimen due to plt clumping in EDTA specimen LAB MPV Mean Platelet Volume 7.8 Normal 6.6-10.1 fL Result Comment: WBC, PLT, MP V results from NaCit specimen due to plt clumping in EDTA specimen LAB MDW Monocyte Distribution Width 17.81 Normal 0.00-20.00 % LAB NE% Neutrophils % (Auto) 77.5 . % LAB LY% Lymphocytes % (Auto) 15.0 . % LAB MO% Monocytes % (Auto) 6.3 . % LAB EO% Eosinophils % (Auto) 0.7 . % LAB BA% Basophils % (Auto) 0.5 . % LAB NRBC% NRBC% 0.3 Normal 0-0.5 /100{WBC } LAB NE# Neutrophils # (Auto) 4.7 Normal 1.8-7.7 10*3/uL LAB LY# Lymphocytes # (Auto) 0.9 Low 1.00-4.8 10*3/uL LAB MO# Monocytes # (Auto) 0.4 Normal 0.0-0.8 10*3/uL LAB EO# Eosinophils # (Auto) 0.0 Normal 0.0-0.45 10*3/uL LAB BA# Basophils # (Auto) 0.0 Normal 0.0-0.2 10*3/uL LAB POIK Poikilocytosis Slight LAB ANISO Anisocytosis Slight LAB MICR Microcytosis Slight LAB STOM Stomatocytes Slight LAB TVAC Toxic Vacuolation Slight LAB PLT EST Platelet Estimate Normal Normal LAB PLTM Platelet Morphology Normal Normal Result Comment: PERFORMED BY : [place] [id number] PATHOLOGIST WINDER OPERATOR ROSEMARY VASQUEZ M.D. Performed By: #### SCAN CBC #### [address] LACTIC ACID Collected: 11:49 AM Status: F Source: [facility] REPOSITORY TYPE CODE TESTS RESULT OUT OF RANGE REFERENCE UNITS LAB LACTIC Lactic Acid 1.0 0.5-2.2 mmol/L Result Comment: PERFORMED BY : [place] [address] PATHOLOGIST WINDER OPERATOR ROSEMARY VASQUEZ M.D. Performed By: #### CMP, LACT IC #### [facility] [address] [place] [address] COMPREHENSIVE METABOLIC PANEL Collected: 04/27/2023 1 1:49 AM Status: F Source: [facility] REPOSITORY TYPE CODE TESTS RESULT OUT OF RANGE REFERENCE UNITS LAB GLU Glucose 98 Normal 70-100 mg/dL Result Comment: Random Gluco se Reference Range is dependent on time and content of last meal. Glucose of more than 200 mg/dL in a nonstressed, ambulatory subject supports the diagnosis of Diabetes Mellitus. ADA recommended reference range LAB BUN Blood Urea Nitrogen 3 Low 7-25 mg/d L LAB CREATT Creatinine 0.77 Normal 0.70-1.30 mg/dL LAB GFReNR Estimated GFR > 60.0 LAB NA Sodium 130 Low 136-145 mmol/L LAB K Potassium 3.6 Normal 3.5-5.1 mmol/L LAB CL Chloride 93 Low 98-107 mmol/L LAB CO2 Carbon Dioxide 28.7 Normal 21.0-31.0 mmol/L LAB GAP Anion Gap 11.9 Normal 6.0-15.0 LAB CA Calcium 9.2 Normal 8.6-10.3 mg/dL LAB TP Total Protein 7.3 Normal 6.4-8.9 g/dL LAB ALB Albumin Level 4.5 Normal 3.5-5.7 g/dL LAB GLOB Globulin 2.8 g/dL LAB AGRATIO Albumin/Globulin Ratio 1.6 LAB BILIT Bilirubin,Total 1.5 High 0.3-1.0 mg/dL Result Comment: Samples from patients who have taken Naproxen have shown spurious elevation in Total Bilirubin levels. A metabolite of Naproxen, O-desmethylnaproxen, has been shown to interfere with the Cornelia-Hetal method for measuring Total Bilirubin. LAB AST Aspartate Amino Transferase 31 Normal 13-39 U/L LAB ALT Alanine Aminotransferase 23 Normal 7-52 U/L LAB ALP Alkaline Phosphatase 57 Normal 34-104 U/L LAB CRCLPHA Creatinine Clr C alc Pharmacy 158.54 Result Comment: PERFORMED BY : [place] [address] PATHOLOGIST WINDER OPERATOR ROSEMARY VASQUEZ M.D. Performed By: #### CMP, LACT IC #### [facility] [address] [place] [address] ECG 12 LEAD ECG Observed: 04/25/2023 2:18 PM Status: COMPLETED Source: [facility] REPOSITORY [facility] [place] [address] Electrocardiograph Report Signed Patient: John Starr MR#: [id number] 50 : 1995 Acct:[id number] Age/Sex: 27 / M ADM Date: 04/25/23 Loc: ER Room: Type: [facility] ER Attending Dr: Ordering Provider: Cornell Green [...] 6:20:39 AM Referred By: Electronically Signed By:CORNELL GREEN DO Transcribed By: MUS Signed By Cornell Geren DO 0620 ALLERGIES DATE TYPE / CODE NAME / CODE REACTION SEVERITY SOURCE 01/09/2024 Drug Allergy/40052 8002(SNOMED CT) penicillin G/[id number](RXNOR M) Hives, trouble breathing Unknown [facility] ENCOUNTERS ADMIT/DISCHARGE ACCOUNT NUMBER ADMITTING ENCOUNTER CLASS LOCATION SOURCE 01/09/2024/01/10/20 24 [id number] [facility]WR[facility] 11/11/2023/11/11/19 24 [id number] Ambulatory Occupational Health and WellnessBuildin g:Occupational Health and Wellness [facility] 10/20/2023/10/20/19 24 [id number] [facility]RG[facility] CARERoom: UCBed: [address] [place] [address] 04/29/2023/04/29/20 23 [id number] Michael Bond Jr [facility] 04/28/2023/04/28/20 23 [id number] Eloisa Aburto [facility]TRoom: [facility] 04/27/2023/04/27/20 23 [id number] Carmen Good [facility]TRoom[facility] 04/26/2023/04/26/20 23 [id number] Sima Emery Ammon [facility] 04/26/2023/04/26/20 23 [id number] Shaka Chavira [facility] EDFTRoom: EDQCF [facility] 04/25/2023/04/25/20 23 [id number] Cornell Green [facility] EDWRRoom: [facility] 03/12/2023/09/29 23 [id number] Cornell Green [facility] PAYERS ENCOUNTER GUARANTOR PAYER SUBSCRIBER SOURCE 01/09/2024 [place] [address]Lkr: (HP) Primary Insurance:Self PayPolicy Number: Effective Date:2024-01-09 NOT [facility] 04/29/2023 [place] [address]Bpp: (HP) Primary Insurance:Self PayPolicy Number: Effective Date:2023-04-29 [facility] 04/28/2023 [place] [address]Kiu: (HP) Primary Insurance:Self PayPolicy Number: Effective Date:2023-04-28 [facility] 04/27/2023 [place] [address]Uyc: (HP) Primary Insurance:Self PayPolicy Number: Effective Date:2023-04-27 [facility] 04/26/2023 John [address] [place] [address]Oav: (HP) Primary Insurance:Self PayPolicy Number: Effective Date:2023-04-26 [facility] 04/26/2023 [place] [address]Ttq: (HP) Primary Insurance:Self PayPolicy Number: Effective Date:2023-04-26 [facility] 04/25/2023 John Starr[address] [place] [address]Jkc: (HP) Primary Insurance:Self PayPolicy Number: Effective Date:2023-04-25 [facility] 03/12/2023 [place] [address]Ttu: (HP) Primary Insurance:[facility] Comm PlanPolicy Number: [id number] ve Date:[id number] [address] [place] [address]RD: John EspañaB: [id number] [place] [address]Kjd: () [facility] 03/12/2023 Secondary Insurance:Self PayPolicy Number: Effective Date:2023-03-12 [facility]
[2024-02-07] MEDS: KETOROLAC TROMETHAMINE 30 MG/ML VIAL IM (02:56)
--- NOTE | 2024-02-07 06:42 | ED.GENADUL1 ---
HPI HPI - General Adult General Chief complaint: Neck Pain/Injury Stated complaint: neck pain Time Seen by Provider: 02/07/24 02:33 Source: patient Mode of arrival: walk-in History of Present Illness HPI narrative: 28-year-old male to the emergency department chief complaint of neck pain. Patient reports that over the last few days he has had some spasm-like pain on his left lateral neck. No injuries. No numbness, weakness, tingling. No therapies attempted at home. Reports he needs a work note. Related Data Previous Rx's ?Medication ?Instructions ?Recorded cyclobenzaprine 5 mg tablet 5 mg PO BID PRN muscle spasm #10 02/07/24 tabs naproxen 500 mg tablet 500 mg PO BID PRN pain #14 tabs 02/07/24 Allergies Allergy/AdvReac Type Severity Reaction Status Date / Time Penicillins Allergy Severe Swelling Verified 01/26/24 22:38 of Lip/Tongue/Throat Opioid HPI Opioid Management Most Recent Opioid Data: Last Pain Scale 7 02/07/24 02:56 Last [facility] Pain Assessment 02/07/24 02:56 [facility] Social History Smoking status: Current every day smoker Exam Narrative Exam Narrative: VITALS: I have reviewed the triage vital signs. GENERAL: Well developed, well appearing adult in no acute distress. NEURO: Alert and oriented. Moves all extremities. Face is symmetric and expressive. EYES: PERRL. No scleral icterus or conjunctival injection. No discharge. HENT: Normocephalic, atraumatic. Hearing is grossly intact. Nares grossly patent and without discharge. Mucous membranes moist. NECK: No JVD. Patient moves neck without restriction. CARDIO: Rhythm regular. Normal rate. No murmur, rub, or gallop. Pulses equal bilaterally in the upper and lower extremity. No lower extremity edema. PULM: Lungs clear to auscultation in all orozco. No wheezes, rales, or rhonchi. No conversational dyspnea. No splinting, stridor, or accessory muscle use. GI/: Abdomen is soft and non-tender. Normoactive bowel sounds. EXTREMITIES: Symmetric muscle bulk. No joint swelling. No clubbing, cyanosis, or deformity. SKIN: Warm and dry. Normal turgor. No rash or lesions appreciated. PSYCH: Mood, affect, and interaction is appropriate to the setting. Constitutional Vital Signs, click to edit/add: Last Vital Signs Temp 97.9 F 02/07/24 02:31 Pulse 59 L 02/07/24 02:31 Resp 16 02/07/24 02:31 BP 136/90 02/07/24 02:31 Pulse Ox 98 02/07/24 02:31 O2 Del Method Room Air 02/07/24 02:31 Course Vital Signs Vital signs: Vital Signs Temperature 97.9 F 02/07/24 02:31 Pulse Rate 59 L 02/07/24 02:31 Respiratory Rate 16 02/07/24 02:31 Blood Pressure 136/90 02/07/24 02:31 Pulse Oximetry 98 02/07/24 02:31 Oxygen Delivery Method Room Air 02/07/24 02:31 Temperature 97.9 F 02/07/24 02:31 Pulse Rate 59 L 02/07/24 02:31 Respiratory Rate 16 02/07/24 02:31 Blood Pressure 136/90 02/07/24 02:31 Pulse Oximetry 98 02/07/24 02:31 Oxygen Delivery Method Room Air 02/07/24 02:31 Medical Decision Making MDM Narrative Medical decision making narrative: 28-year-old male with intermittent muscle spasms of the left side of his neck. Vital stable, the patient is afebrile. History and exam are consistent with muscle spasm. Toradol. Naproxen and Flexeril for home. Work note given. Return precautions were discussed. All questions were answered. Patient was discharged home. Discharge Plan Discharge Stand Alone Forms: Work/School Release, Portal Instructions Chief Complaint: Neck Pain/Injury Clinical Impression: Muscle spasm Patient Disposition: Home, Self-Care Time of Disposition Decision: 02:45 Condition: Good Mode of Transportation: Private Vehicle Prescriptions / Home Meds: New cyclobenzaprine 5 mg tablet 5 mg PO BID PRN (Reason: muscle spasm) Qty: 10 0RF naproxen 500 mg tablet 500 mg PO BID PRN (Reason: pain) Qty: 14 0RF Print Language: Latvian Instructions: Muscle Spasm (ED) Additional Instructions: Call the office of your primary care doctor to arrange for follow-up within the above-stated timeframe. Your ED visit was focused on your acute issue and does not replace primary care. You should review your labs, imaging, and diagnoses from this ED visit with your primary care physician. There may be non-emergent/ incidental findings that need further evaluation. You should review your vital signs including blood pressure with your PCP. If you were prescribed medications you should discuss possible side-effects and drug interactions with your pharmacist. Call 911 or go to the nearest Emergency Department if you develop any new or worsening symptoms. Referrals: Nas Farrell DO [Primary Care Provider] - 1 week Discharge Date/Time: 02/07/24 03:01
== END 2024-02-07 03:01 | disposition home or self-care (01) ==
PROVIDERS: Emergency Provider Student in an Organized Health Care Education/Training Program; PCP Family Medicine
DX: M62.838 Other muscle spasm (principal); F17.200 Nicotine dependence, unspecified, uncomplicated
CPT/HCPCS: 96372; 99284; J1885

== ENCOUNTER 2024-10-24 21:07 | Emergency (ER) | payer OTHER, SELFPAY ==
[2024-10-24 21:12] VITALS: BP 131/93; PULSE 95; TEMP 36.8; O2SAT 100
--- OUTSIDE RECORDS SUMMARY | 2024-10-24 21:12 | XMS_ITS | CCD ---
Author Organization [facility] CliniSyhi Care Team Providers Care Early Morning Babysitter Name Role Phone NAS FARRELL Primary Care Unavailable SELF, REFERRED Referring Unavailable JERI BLEVINS Attending Unavailable JERI BLEVINS Admitting Unavailable Nas Farrell Unavailable DO Nas Farrell Primary Care Provider DO Rigo Sy Emergency Provider Lory FARRELL, DR CHINCHILLA Primary Care Unavailable MARKER, DR BURDICK Admitting Unavailable MARKER, DR BURDICK Consulting Unavailable MARKER, DR BURDICK Attending Unavailable JAMI, DR CHINCHILLA Primary Care Unavailable BREE, DR MEENAKSHI Blevins Consulting Unavailable BREE, DR MEENAKSHI Blevins Attending Unavailable BREE, DR MEENAKSHI Blevins Admitting Unavailable AMAYA RASHID Attending Unavailable RACHID, AMAYA Admitting Unavailable JAMI, DR CHINCHILLA Primary Care Unavailable MERRY CHUNG Consulting Unavailable ALICIA DORAN Consulting Unavailable AMAYA RASHID Consulting Unavailable WELLINGTON VELEZ Attending Unavailable WELLINGTON VELEZ Admitting Unavailable WELLINGTON VELEZ Consulting Unavailable JAMI, DR CHINCHILLA Primary Care Unavailable JAMI, DR CHINCHILLA Primary Care Unavailable RAJANI HOLLIDAY Attending Unavailable RAJANI HOLLIDAY Admitting Unavailable RAJANI HOLLIDAY Consulting Unavailable JAMI, DR CHINCHILLA Primary Care Unavailable GAGE GARRIDO Attending Unavailable GAGE GARRIDO Admitting Unavailable GAGE GARRIDO Consulting Unavailable JAMI, DR CHINCHILLA Primary Care Unavailable GAGE GARRIDO Attending Unavailable GAGE GARRIDO Admitting Unavailable Sandi, DR Hernandez Consulting Unavailable GAGE GARRIDO Consulting Unavailable VARSHA ZHAO Consulting Unavailable JEEVAN SOARES Consulting Unavailable CHAD GUSTAFSON Consulting Unava ilable GAGE GARRIDO Attending Unavailable GAGE GARRIDO Admitting Unavailable Sandi, DR Hernandez Consulting Unavailable JAMI, DR CHINCHILLA Primary Care Unavailable GAGE GARRIDO Consulting Unavailable KUNDR NAS Ortega Primary Care Unavailable GAGE GARRIDO Attending Unavailable GAGE GARRIDO Admitting Unavailable Sandi, DR Hernandez Consulting Unavailable GAGE GARRIDO Consulting Unavailable CLEMENTINE CABRERA Consulting Unavailable JAMI, DR CHINCHILLA Primary Care Unavailable GAGE GARRIDO Attending Unavailable GAGE GARRIDO Admitting Unavailable Sandi, DR Hernandez Consulting Unavailable GAGE GARRIDO Consulting Unavailable DO Nas Farrell Primary Care Provider SANJANA Chavira Emergency Provider Criselda, [facility] Eloisa E Emergency Provider [phone] DO Nas Farrell Primary Care Provider Criselda, [facility] Eloisa E Emergency Provider DO [facility] [place] Emergency Provider DO Nas Farrell Primary Care Provider DO [facility] Emergency Provider [phone] SANJANA Chavira Emergency Provider DO Emery Gao Emergency Provider [phone] SANJANA Good Emergency Provider [facility], [facility] Eloisa E Emergency Provider Luis Perez Admitting Unavailable Luis Perez Attending Unavailable Provider, None Primary Care Unavailable Jaciel CERVANTES Attending Unavailable DO Nas Farrell Primary Care Provider Temp, Provider Emergency Provider Unavailable Nas Farrell DO Primary Care Provider [phone] Nas Farrell DO Attending Provider Nas Farrell Admitting Unavailable Nas Farrell Primary Care Unavailable Nas Farrell Attending Unavailable Nas Farrell Primary Care Unavailable Temp, Provider Admitting Unavailable Temp, Provider Attending Unavailable Unavailable Unavailable Unavailable Allergies Allergy Classification Reported Allergen(s) Allergy Type Date of Onset Reaction(s) Facility Penicillins (antibiotic) (2 sources) Penicillin Drug Allergy 4 hives, trouble breathing, Swelling of Lip/Tongue/Thro at [facility] (16 sources) Penicillins; Translations: [Penicillins] Allergy to substance 1 Swelling of Lip/Tongue/Thro at [facility] (15 sources) Penicillin G Drug Allergy 4 hives, trouble breathing [facility] (1 source) Penicillin Drug Allergy 9 [facility] Medications Current Medications Medication Drug Class(es) Dates Sig (Normalized) Sig (Original) fluticasone propionate 0.05 mg/actuat metered dose nasal spray (1 source) Corticosteroid Start: 06-17-2023 take 2 spray(s) nasal route once daily Fluticasone Propionate 50 MCG/ACT 2 sprays each nostril Nasally Once a day Jun, Active lisinopril 10 mg oral tablet (1 source) Angiotensin Converting Enzyme Inhibitor Start: 02-21-2022 take 1 tablet by mouth every twenty-four hours Lisinopril 10 MG 1 tablet Orally Once a day for 30 day(s) Feb, Active Marathon (No Known Home Meds) (5 sources) Start: 09-16-2024 Marathon (No Known Home Meds) Active September 16, 2024 12:00am Start: 04-21-2022 Marathon (No Kn own Home Meds) Active April 21, 2022 1:00am Start: 04-21-2022 Marathon (No Kn own Home Meds) Active April 21, 2022 12:00am Completed/Discontinued Medications Medication Drug Class(es) Dates Sig (Normalized) Sig (Original) acetaminophen 325 mg / HYDROcodone bitartrate 5 mg oral tablet (20 sources) Opioid Agonist Start: 08-17-2018 End: 12-08-2018 take 1 tablet by mouth every six hours as needed for pain Hydrocodone-Acetami nophen 5-325 mg tablet Discontinued 1 TAB PO Q6H as needed for pain 14 August 17, 2018 December 08, 2018 1:32pm Start: 08-12-2018 End: 12-08-2018 take 1 tablet by mouth every four to six hours as needed for pain Hydrocodone-Acetaminophen ([place]) 5-325 mg tablet Discontinued 1 TAB PO EVERY 4-6 HOURS as needed for pain 10 3 August 12, 2018 December 08, 2018 1:32pm acetaminophen 325 mg / oxyCODONE hydrochloride 5 mg oral tablet (14 sources) Opioid Agonist Start: 04-29-2023 End: 09-16-2024 take 1 tablet by mouth every six hours as needed for pain Oxycodone-Acetaminophen (Percocet) 5-325 mg tablet Discontinued 1 - 2 TAB PO Every 6 hours as needed for pain 15 3 April 29, 2023 September 16, 2024 10:29am Start: 04-26-2023 End: 09-16-2024 take 1 tablet by mouth three times daily as needed for pain Oxycodone-Acetaminophen (Percocet) 5-325 mg tablet Discontinued 1 TAB PO Three times daily as needed for pain 7 2 April 26, 2023 September 16, 2024 10:28am busPIRone hydrochloride 7.5 mg oral tablet (11 sources) Start: 03-13-2023 End: 09-16-2024 take 1 tablet by mouth twice daily Buspirone 7.5 mg tablet Discontinued 7.5 MG PO Twice daily March 13, 2023 12:00am September 16, 2024 10:28am cefdinir 300 mg oral capsule (15 sources) Cephalosporin Antibacterial Start: 10-28-2019 End: 08-01-2021 take 1 capsule by mouth twice daily Cefdinir 300 mg capsule Discontinued 300 MG PO Twice daily 14 October 28, 2019 12:00am August 01, 2021 3:20pm chlorhexidine gluconate 1.2 mg/ml mouthwash (12 sources) Start: 01-24-2023 End: 04-26-2023 Chlorhexidine Gluconate [...] a day for 30 day(s) Jun, Not-Taking clindamycin 300 mg oral capsule (20 sources) Lincosamide Antibacterial Start: 04-26-2023 End: 09-16-2024 take 1 capsule by mouth three times daily Clindamycin Hcl 300 mg capsule Discontinued 300 MG PO Three times daily 30 November 12th, 2023 1:00am September 16, 2024 10:28am Start: 01-24-2023 End: 04-26-2023 take 3 capsules by mouth three times daily Clindamycin Hcl 150 mg capsule Discontinued 450 MG PO Three times daily January 24, 2023 12:00am April 26, 2023 4:28pm Start: 01-24-2023 End: 04-26-2023 take 450 mg by mouth three times daily Clindamycin Hcl Discontinued 450 MG PO Three times daily January 24, 2023 12:00am April 26, 2023 4:28pm clonazePAM 0.5 mg oral tablet (8 sources) Benzodiazepine Start: 12-19-2021 take 1 tablet by mouth every twenty-four hours clonazePAM 0.5 MG 1 tablet at bedtime Orally Once a day for 30 days Dec, Not-Taking/PRN dicyclomine hydrochloride 20 mg oral tablet (15 sources) Anticholinergic Start: 12-08-2018 End: 02-02-2019 take 1 tablet by mouth three times daily Dicyclomine 20 mg tablet Discontinued 20 MG PO Three times daily December 08, 2018 12:00am February 02, 2019 1:10am escitalopram 10 mg oral tablet (8 sources) Serotonin Reuptake Inhibitor Start: 12-19-2021 take 1 tablet by mouth every twenty-four hours Escitalopram Oxalate 10 MG 1 tablet Orally Once a day Dec, Not-Taking/PRN hydrOXYzine hydrochloride 50 mg oral tablet (20 sources) Antihistamine Start: 02-21-2022 take 1-2 tablets by mouth at bedtime as needed for sleep hydrOXYzine HCl 50 MG 1-2 tablets Orally at HS as needed for sleep for 30 day(s) Feb, Not-Taking/PRN Start: 12-04-2021 End: 12-11-2021 take 1 tablet by mouth every six hours as needed for anxiety Hydroxyzine Hcl 25 mg tablet Discontinued 25 MG PO Q6H as needed for anxiety December 04, 2021 12:00am December 11, 2021 12:00pm ibuprofen 600 mg oral tablet (20 sources) Nonsteroidal Anti-inflammatory Drug Start: 04-29-2023 End: 09-16-2024 take 1 tablet by mouth every eight hours as needed for pain Ibuprofen 600 mg tablet Discontinued 600 MG PO Q8H as needed for pain April 29, 2023 1:00am September 16, 2024 10:28am Start: 06-21-2021 End: 04-21-2022 take 1 tablet by mouth three times daily as needed for pain Ibuprofen 800 mg Tablet Discontinued 800 MG PO Three times daily as needed for Pain December 11, 2021 12:00am April 21, 2022 8:06am Lidocaine (7 sources) Antiarrhythmic, Amide Local Anesthetic Start: 04-27-2023 End: 09-16-2024 Lidocaine Hcl (Lidocaine Viscous) 2 % solution Discontinued 17 ML MUCOUS MEM Three times daily as needed for pain 150 April 27, 2023 1:00am September 16, 2024 10:28am 300 Start: 04-27-2023 Lidocaine Hcl (Lidocaine Viscous) 2 % solution Active 17 ML MUCOUS MEM Three times daily 150 April 27, 2023 1:00am 300 Start: 04-27-2023 Lidocaine Hcl (Lidocaine Viscous) 2 % solution Active 17 ML MUCOUS MEM Three times daily 150 April 27, 2023 12:00am 300 naproxen 500 mg oral tablet (20 sources) Nonsteroidal Anti-inflammatory Drug Start: 10-28-2019 End: 08-01-2021 take 1 tablet by mouth twice daily as needed for pain Naproxen (Naprosyn) 500 mg tablet Discontinued 500 MG PO Twice daily as needed for pain October 28, 2019 10:44pm August 01, 2021 3:20pm Start: 05-12-2018 End: 08-12-2018 take 1 tablet by mouth twice daily as needed for pain Naproxen (Naprosyn) 500 mg tablet Discontinued 500 MG PO Twice daily as needed for pain May 12, 2018 1:00am August 12, 2018 11:56pm administer with food or milk ondansetron 4 mg disintegrating oral tablet (20 sources) Serotonin-3 Receptor Antagonist Start: 04-26-2023 End: 04-27-2023 take 1 tablet by mouth every six hours as needed for nausea and vomiting Ondansetron 4 mg tablet,disintegrating Discontinued 4 MG PO Q6H as needed for nausea and vomiting April 26, 2023 1:00am April 27, 2023 11:16am Start: 12-08-2018 End: 02-02-2019 take 1 tablet by mouth every eight hours as needed for nausea and vomiting Ondansetron Hcl (Zofran) 4 mg tablet Discontinued 4 MG PO Q8H as needed for nausea and vomiting 03 10December 08, 2018 12:00am February 02, 2019 1:10am promethazine hydrochloride 25 mg oral tablet (15 sources) Phenothiazine Start: 03-12-2017 End: 05-12-2018 take 1 tablet by mouth every six hours as needed for nausea and vomiting Promethazine 25 mg tablet Discontinued 25 MG PO Q6H as needed for nausea and vomiting March 12, 2017 12:00am May 12, 2018 5:11pm Problems Active Problems Problem Classification Problem Date Documented Da te Episodic/Chronic Abdominal pain (20 sources) Abdominal pain; Translations: [Unspecified abdominal pain] 10-28-2019 Episodic Comment on above: Problem List clean-u p per request of Phys. EHR Cmte Anxiety disorders (20 sources) Anxiety; Translations: [Anxiety disorder, unspecified] Onset: 12-19-2021 Resolved: 12-19-2021 Chronic Comment on above: Problem List clean-u p per request of Phys. EHR Cmte Disorders of teeth and jaw (20 sources) Dental caries; Translations: [Dental caries, unspecified] 01-24-2023 Episodic Comment on above: Problem List clean-u p per request of Phys. EHR Cmte Disorders usually diagnosed in infancy, childhood, or adolescence (17 sources) Disorders of attention and motor control; Translations: [Other specified behavioral and emotional disorders with onset usually occurring in childhood and adolescence] 01-15-2024 Chronic Esophageal disorders (8 sources) Acid reflux; Translations: [Gastro-esophageal reflux disease without esophagitis] Chronic Fluid and electrolyte disorders (20 sources) Dehydration; Translations: [Acute hypokalemia] Onset: 06-21-2021 Resolved: 06-21-2021 Episodic Comment on above: Problem List clean-u p per request of Phys. EHR Cmte Gastritis and duodenitis (17 sources) Gastritis; Translations: [Gastritis, unspecified, without bleeding] 12-08-2018 Episodic Comment on above: Problem List clean-u p per request of Phys. EHR Cmte Malaise and fatigue (20 sources) Fatigue; Translations: [Other fatigue] 02-02-2019 Episodic Comment on above: Problem List clean-u p per request of Phys. EHR Cmte Mood disorders (20 sources) Major depressive disorder, single episode, unspecified; Translations: [Depression] Onset: 06-21-2021 Resolved: 02-21-2022 Chronic Comment on above: Problem List clean-u p per request of Phys. EHR Cmte Nausea and vomiting (8 sources) Nausea and vomiting; Translations: [Nausea with vomiting, unspecified] 04-26-2023 Episodic Noninfectious gastroenteritis (17 sources) Gastroenteritis; Translations: [Noninfective gastroenteritis and colitis, unspecified] 12-08-2018 Episodic Comment on above: Problem List clean-u p per request of Phys. EHR Cmte Other circulatory disease (13 sources) Elevated blood pressure; Translations: [Elevated blood-pressure reading, without diagnosis of hypertension] Episodic Other circulatory disease (2 sources) Elevated blood-pressure reading, without diagnosis of hypertension Onset: 02-21-2022 Resolved: 02-21-2022 Episodic Other connective tissue disease (1 source) Peroneal tendinitis, right leg; Translations: [PERONEAL TENDINITIS RIGHT LEG] Onset: 03-12-2022 Episodic Other connective tissue disease (4 sources) Tendonitis of right wrist; Translations: [Other enthesopathies, not elsewhere classified] 01-18-2024 Episodic Other connective tissue disease (2 sources) Other enthesopathies, not elsewhere classified; Translations: [Other tenosynovitis of hand and wrist] 01-18-2024 Episodic Other ear and sense organ disorders (2 sources) Impacted cerumen; Translations: [Impacted cerumen, left ear] 09-16-2024 Episodic Other ear and sense organ disorders (2 sources) Impacted cerumen, left ear; Translations: [Impacted cerumen] 09-16-2024 Episodic Other gastrointestinal disorders (17 sources) Diarrhea; Translations: [Diarrhea, unspecified] 03-12-2017 Episodic Comment on above: Problem List clean-u p per request of Phys. EHR Cmte Other lower respiratory disease (8 sources) Cough; Translations: [Cough] Episodic Other nervous system disorders (1 source) Other chronic pain; Translations: [OTHER CHRONIC PAIN] Onset: 01-29-2022 Chronic Other nervous system disorders (15 sources) Clonus; Translations: [Other abnormal involuntary movements] 04-21-2022 Episodic Comment on above: Problem List clean-u p per request of Phys. EHR Cmte Other non-traumatic joint disorders (6 sources) Pain [...] Onset: 02-03-2022 Episodic Other non-traumatic joint disorders (13 sources) Joint pain in right hand; Translations: [Pain in joints of right hand] 12-09-2022 Episodic Comment on above: Problem List clean-u p per request of Phys. 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 Other nutritional; endocrine; and metabolic disorders (13 sources) Loss of appetite; Translations: [Anorexia] Episodic Other nutritional; endocrine; and metabolic disorders (1 source) Adult failure to thrive; Translations: [Adult failure to thrive] Onset: 09-21-2024 Episodic Other screening for suspected conditions (not mental disorders or infectious disease) (5 sources) Encounter for screening for cardiovascular disorders; Translations: [Encounter for screening for other suspected endocrine disorder] Onset: 09-21-2024 Episodic Other upper respiratory infections (20 sources) Pharyngitis; Translations: [Acute pharyngitis, unspecified] Onset: 06-02-2022 03-07-2021 Episodic Comment on above: Problem List clean-u p per request of Phys. EHR Cmte Poisoning by other medications and drugs (15 sources) Poisoning by unspecified drugs, medicaments and biological substances, accidental (unintentional), initial encounter; Translations: [Overdose] 04-21-2022 Episodic Comment on above: Problem List clean-u p per request of Phys. EHR Cmte Residual codes; unclassified (5 sources) Hypersomnia; Translations: [Hypersomnia, unspecified] Chronic Residual codes; unclassified (1 source) Hypersomnia, unspecified Chronic Residual codes; unclassified (6 sources) Insomnia; Translations: [Insomnia, unspecified] Episodic Residual codes; unclassified (4 sources) Finding of body mass index; Translations: [Body Mass Index between 19-24, adult] 09-16-2024 Episodic Screening and history of mental health and substance abuse codes (1 source) Personal history of nicotine dependence; Translations: [PERSONAL HISTORY OF NICOTINE DEPEND] Onset: 06-02-2022 Episodic Skull and face fractures (7 sources) Fracture of tooth (traumatic), initial encounter for closed fracture; Translations: [Fracture of multiple teeth] 04-27-2023 Episodic Sprains and strains (18 sources) Sprain of ankle; Translations: [Sprain of unspecified ligament of unspecified ankle, initial encounter] Onset: 06-18-2021 12-11-2021 Episodic Comment on above: Problem List clean-u p per request of Phys. EHR Cmte Substance-related disorders (10 sources) Nicotine dependence, cigarettes, uncomplicated; Translations: [Nicotine dependence, chewing tobacco, uncomplicated] Onset: 10-24-2021 01-15-2024 Chronic Suicide and intentional self-inflicted injury (18 sources) Suicidal thoughts; Translations: [Suicidal ideations] Onset: 06-21-2021 Resolved: 06-21-2021 Episodic Superficial injury; contusion (5 sources) Contusion of right hand; Translations: [Contusion of right hand, initial encounter] 01-18-2024 Episodic Unclassified (2 sources) COUGH, UNSPECIFIED; Translations: [COUGH, UNSPECIFIED] Onset: 06-02-2022 Unclassified (1 source) CONTACT W/AND (SUSP) EXPOS COVID-19; Translations: [CONTACT W/AND (SUSP) EXPOS COVID-19] Onset: 06-02-2022 Viral infection (14 sources) Viral disease; Translations: [Viral infection, unspecified] 12-02-2022 Episodic Comment on above: Problem List clean-u p per request of Phys. EHR Cmte Past or Other Problems Problem Classification Problem [...] unspecified Onset: 02-21-2022 Resolved: 02-21-2022 Episodic Unclassified (15 sources) Ankle sprain and strain 08-01-2021 Comment on above: Problem List clean-u p per request of Phys. EHR Cmte Unclassified (1 source) COUGH, UNSPECIFIED; Translations: [COUGH, UNSPECIFIED] Onset: 05-30-2022 Results Test Name Value Interpretation Reference Range Facility Alanine aminotransferase [En zymatic activity/volume] in Serum or PlasmaOrdered By: Nas Farrell on 09-21-2024 ALT [Catalytic activity/Vol] Alanine aminotransferase [Enzymatic activity/volume] in Serum or Plasma High 7-52 [facility] Albumin [Mass/volume] in Ser um or Plasma by Bromocresol green (BCG) dye binding methoOrdered By: Nas Farrell on 09-21-2024 Albumin BCG dye [Mass/Vol] Albumin [Mass/volume] in Serum or Plasma by Bromocresol green (BCG) dye binding metho 3.5-5.7 [facility] Alkaline phosphatase [Enzyma tic activity/volume] in Serum or PlasmaOrdered By: Nas Farrell on 09-21-2024 ALP [Catalytic activity/Vol] Alkaline phosphatase [Enzymatic activity/volume] in Serum or Plasma 34-104 [facility] Aspartate aminotransferase [ Enzymatic activity/volume] in Serum or PlasmaOrdered By: Nas Farrell on 09-21-2024 AST [Catalytic activity/Vol] Aspartate aminotransferase [Enzymatic activity/volume] in Serum or Plasma High 13-39 [facility] Basophils Auto (Bld) [#/Vol] Ordered By: Nas Farrell on 09-21-2024 Basophils (Bld) [#/Vol] Automated basoph il count 0.0-0.2 [facility] Basophils/100 WBC Auto (Bld) Ordered By: Nas Farrell on 09-21-2024 Basophils/100 WBC (Bld) Automated basophil % . [facility] Bilirubin.total [Mass/volume ] in Serum or PlasmaOrdered By: Nas Farrell on 09-21-2024 Bilirubin [Mass/Vol] Bilirubin.total [Mass/volume] in Serum or Plasma High 0.3-1.0 [facility] CMP with reflex to A1Con Albumin [Mass/Vol] 4.6 g/dL Normal 3.5-5.7 [facility] Comment on above: Performed By: #### L IPID, CMP wRFX A1C, T4F, SCAN CBC, TSH3 #### [facility] [address] [id number] [facility] Albumin/Globulin [Mass ratio] 2.0 {ratio} Normal [facility] Comment on above: Performed By: #### L IPID, CMP wRFX A1C, T4F, SCAN CBC, TSH3 #### [facility] [address] [place] [address] [place] ALP [Catalytic activity/Vol] 53 U/L Normal 34-104 [facility] Comment on above: Performed By: #### L IPID, CMP wRFX A1C, T4F, SCAN CBC, TSH3 #### [facility] [address] [id number] [place] ALT [Catalytic activity/Vol] 78 U/L High 7-52 [facility] Comment on above: Performed By: #### L IPID, CMP wRFX A1C, T4F, SCAN CBC, TSH3 #### [facility] [address] Anion gap [Moles/Vol] 9.4 mmol/L Normal 6.0-15.0 [facility] Comment on above: Performed By: #### L IPID, CMP wRFX A1C, T4F, SCAN CBC, TSH3 #### [facility] [address] AST [Catalytic activity/Vol] 80 U/L High 13-39 [facility] Comment on above: Performed By: #### L IPID, CMP wRFX A1C, T4F, SCAN CBC, TSH3 #### [address] Bilirubin [Mass/Vol] 1.2 mg/dL High 0.3-1.0 [facility] Comment on above: Performed By: #### L IPID, CMP wRFX A1C, T4F, SCAN CBC, TSH3 #### [address] Calcium [Mass/Vol] 9.4 mg/dL Normal 8.6-10.3 [facility] Comment on above: Performed By: #### L IPID, CMP wRFX A1C, T4F, SCAN CBC, TSH3 #### [address] Chloride [Moles/Vol] 102 mmol/L Normal 98-107 [facility] Comment on above: Performed By: #### L IPID, CMP wRFX A1C, T4F, SCAN CBC, TSH3 #### [place] [address] [place] CO2 [Moles/Vol] 31.4 mmol/L High 21.0-31.0 [facility] Comment on above: Performed By: #### L IPID, CMP wRFX A1C, T4F, SCAN CBC, TSH3 #### [facility] [address] [place] [address] Creatinine [Mass/Vol] 0.82 mg/dL Normal 0.70-1.30 [facility] Comment on above: Performed By: #### L IPID, CMP wRFX A1C, T4F, SCAN CBC, TSH3 #### [place] [address] [place] GFR/1.73 sq M.predicted MDRD (S/P/Bld) [Vol rate/Area] mL/min/{1.73_m2} Normal [facility] Comment on above: Performed By: #### L IPID, CMP wRFX A1C, T4F, SCAN CBC, TSH3 #### [facility] [address] Globulin (S) [Mass/Vol] 2.3 g/dL Normal T [facility] Comment on above: Performed By: #### L IPID, CMP wRFX A1C, T4F, SCAN CBC, TSH3 #### [address] Glucose [Mass/Vol] 72 mg/dL Normal 70-100 [facility] Comment on above: Performed By: #### L IPID, CMP wRFX A1C, T4F, SCAN CBC, TSH3 #### [address] Potassium [Moles/Vol] 3.8 mmol/L Normal 3.5-5.1 [facility] Comment on above: Performed By: #### L IPID, CMP wRFX A1C, T4F, SCAN CBC, TSH3 #### [place] [address] [place] Protein [Mass/Vol] 6.9 g/dL Normal 6.4-8.9 [facility] Comment on above: Performed By: #### L IPID, CMP wRFX A1C, T4F, SCAN CBC, TSH3 #### [address] Sodium [Moles/Vol] 139 mmol/L Normal 136-145 [facility] Comment on above: Performed By: #### L IPID, CMP wRFX A1C, T4F, SCAN CBC, TSH3 #### [address] [address] [place] Urea nitrogen [Mass/Vol] 7 mg/dL Normal 7-25 [facility] Comment on above: Performed By: #### L IPID, CMP wRFX A1C, T4F, SCAN CBC, TSH3 #### [facility] [address] [id number] [facility] Calcium [Mass/volume] in Ser um or PlasmaOrdered By: Nas Farrell on 09-21-2024 Calcium [Mass/Vol] Calcium [Mass/volume ] in Serum or Plasma 8.6-10.3 [facility] Carbon dioxide, total [Moles /volume] in Serum or PlasmaOrdered By: Nas Farrell on 09-21-2024 CO2 [Moles/Vol] Carbon dioxide, tota l [Moles/volume] in Serum or Plasma High 21.0-31.0 [facility] Chloride [Moles/volume] in S dion or PlasmaOrdered By: Nas Farrell on 09-21-2024 Chloride [Moles/Vol] Chloride [Moles/volume] in Serum or Plasma 98-107 [facility] Cholesterol [Mass/volume] in Serum or PlasmaOrdered By: Nas Farrell on 09-21-2024 Cholesterol [Mass/Vol] Cholesterol [Mass/volume] in Serum or Plasma 140-200 [facility] Comment on above: Chol less than 200 m g/dl low riskChol 201-239 mg/dl borderline riskChol 240 mg/dl and greater high risk Cholesterol in HDL [Mass/vol ume] in Serum or PlasmaOrdered By: Nas Farrell on 09-21-2024 Cholesterol in HDL [Mass/Vol] Serum or plasma high density lipoprotein (HDL) cholesterol measurement 23-92 [facility] Comment on above: HDL CHOL ATP-III CLA SSIFICATION Cardiovascular RiskHDL > or equal to 60 mg/dL LOWHDL < 40 mg/dL HIGH Cholesterol in LDL Calc [Mas s/Vol]Ordered By: Nas Farrell on 09-21-2024 Cholesterol in LDL [Mass/Vol] Cholesterol in LDL [Mass/volume] in Serum or Plasma by calculation 0-100 [facility] Comment on above: LDL ATP III CLASSIFI CATIONLDL less than 100 mg/dL OptimalLDL 100-129 mg/dL Near or above optimalLDL 130-159 mg/dL Borderline highLDL 160-189 mg/dL HighLDL greater than 189 mg/dL Very high Cholesterol in VLDL Calc [Ma ss/Vol]Ordered By: Nas Farrell on 09-21-2024 Cholesterol in VLDL [Mass/Vol] Cholesterol in VLDL [Mass/volume] in Serum or Plasma by calculation [facility] Creatinine [Mass/volume] in Serum or PlasmaOrdered By: Nas Farrell on 09-21-2024 Creatinine [Mass/Vol] Creatinine [Mass/volume] in Serum or Plasma 0.70-1.30 [facility] Eosinophils Auto (Bld) [#/Vo l]Ordered By: Nas Farrell on 09-21-2024 Eosinophils (Bld) [#/Vol] Automated eosinophil count 0.0-0.45 [facility] Eosinophils/100 WBC Auto (Bl d)Ordered By: Nas Farrell on 09-21-2024 Eosinophils/100 WBC (Bld) Automated eosinophil % . [facility] Erythrocyte distribution wid th Auto (RBC) [Ratio]Ordered By: Nas Farrell on 09-21-2024 Erythrocyte distribution width (RBC) [Ratio] Erythrocyte distribution width [Ratio] by Automated count 12.0-14.8 [facility] Erythrocyte morphology findi ng [Identifier] in BloodOrdered By: Nas Farrell on 09-21-2024 RBC morphology finding Nom (Bld) RBC morphology Normal [facility] Free T4 (Free Thyroxine)on 0 09-21-2024 Free T4 [Mass/Vol] 0.95 ng/dL Normal 0.61-1.12 [facility] Comment on above: Performed By: #### L IPID, CMP wRFX A1C, T4F, SCAN CBC, TSH3 #### [facility] [address] [place] [address] Globulin Calc (S) [Mass/Vol] Ordered By: Nas Farrell on 09-21-2024 Globulin (S) [Mass/Vol] Serum globulin measurement by calculation (mass/volume) [facility] Glucose [Mass/volume] in Ser um or PlasmaOrdered By: Nas Farrell on 09-21-2024 Glucose [Mass/Vol] Glucose [Mass/volume ] in Serum or Plasma 70-100 [facility] Hematocrit Auto (Bld) [Volum e fraction]Ordered By: Nas Farrell on 09-21-2024 Hematocrit (Bld) [Volume fraction] Hematocrit [Volume Fraction] of Blood by Automated count 38.8-50.0 [facility] Hemoglobin [Mass/volume] in BloodOrdered By: Nas Farrell on 09-21-2024 Hemoglobin (Bld) [Mass/Vol] Hemoglobin [Mass/volume] in Blood 13.0-17.0 [facility] Leukocytes [#/volume] correc hilton for nucleated erythrocytes in Blood by Automated counOrdered By: Nas Farrell on 09-21-2024 WBC corrected for nucl RBC Auto (Bld) [#/Vol] Leukocytes [#/volume] corrected for nucleated erythrocytes in Blood by Automated coun Low 4.1-10.5 [facility] Lipid Panelon 09-21-2024 Cholesterol [Mass/Vol] 152 mg/dL Normal 140-200 [facility] Comment on above: Result Comment: Chol less than 200 mg/dl low risk Chol 201-239 mg/dl borderline risk Chol 240 mg/dl and greater high risk Performed By: #### L IPID, CMP wRFX A1C, T4F, SCAN CBC, TSH3 #### [facility] [address] [id number] [place] Cholesterol in HDL [Mass/Vol] 54 mg/dL Normal 23-92 [facility] Comment on above: Result Comment: HDL CHOL ATP-III CLASSIFICATION Cardiovascular Risk HDL > or equal to 60 mg/dL LOW HDL < 40 mg/dL HIGH Performed By: #### L IPID, CMP wRFX A1C, T4F, SCAN CBC, TSH3 #### [facility] [address] [place] [address] [place] Cholesterol.total/Choles terol in HDL [Mass ratio] 2.8 {ratio} Normal <5.0 [facility] Comment on above: Performed By: #### L IPID, CMP wRFX A1C, T4F, SCAN CBC, TSH3 #### [facility] [address] [place] [address] [place] LDL Cholesterol,Calculated 80 mg/dL Normal 0-100 [facility] Comment on above: Result Comment: LDL ATP III CLASSIFICATION LDL less than 100 mg/dL Optimal LDL 100-129 mg/dL Near or above optimal LDL 130-159 mg/dL Borderline high LDL 160-189 mg/dL High LDL greater than 189 mg/dL Very high Performed By: #### L IPID, CMP wRFX A1C, T4F, SCAN CBC, TSH3 #### [facility] [address] Triglyceride w/Reflex 89 mg/dL Normal 0-149 [facility] Comment on above: Result Comment: TRIG ATP III CLASSIFICATION TRIG less than 150 mg/dL Normal TRIG 150-199 mg/dL Borderline high TRIG 200-500 mg/dL High TRIG greater than 500 mg/dL Very high Standard traceable to the Center for Disease Conrtrol and Prevention (CDC) test method. Performed By: #### L IPID, CMP wRFX A1C, T4F, SCAN CBC, TSH3 #### [facility] [address] VLDL CHOLESTEROL 17 mg/dL Normal [facility] Comment on above: Performed By: #### L IPID, CMP wRFX A1C, T4F, SCAN CBC, TSH3 #### [facility] [address] Lymphocytes Auto (Bld) [#/Vo l]Ordered By: Nas Farrell on 09-21-2024 Lymphocytes (Bld) [#/Vol] Lymphocytes [#/volume] in Blood by Automated count 1.00-4.8 [facility] Lymphocytes/100 WBC Auto (Bl d)Ordered By: Nas Farrell on 09-21-2024 Lymphocytes/100 WBC (Bld) Lymphocytes/100 leukocytes in Blood by Automated count . [facility] MCH Auto (RBC) [Entitic mass ]Ordered By: Nas Farrell on 09-21-2024 MCH (RBC) [Entitic mass] MCH [Entitic ma ss] by Automated count 27.5-35.2 [facility] MCHC Auto (RBC) [Mass/Vol]Or dered By: Nas Farrell on 09-21-2024 MCHC (RBC) [Mass/Vol] MCHC [Mass/volume] by Automated count 32.5-35.6 [facility] MCV Auto (RBC) [Entitic vol] Ordered By: Nas Farrell on 09-21-2024 MCV (RBC) [Entitic vol] MCV [Entitic vol ume] by Automated count 83.5-101 [facility] Monocytes Auto (Bld) [#/Vol] Ordered By: Nas Farrell on 09-21-2024 Monocytes (Bld) [#/Vol] Automated blood monocyte count 0.0-0.8 [facility] Monocytes/100 WBC Auto (Bld) Ordered By: Nas Farrell on 09-21-2024 Monocytes/100 WBC (Bld) Automated monocyte % . [facility] Neutrophils Auto (Bld) [#/Vo l]Ordered By: Nas Farrell on 09-21-2024 Neutrophils (Bld) [#/Vol] Neutrophils [#/volume] in Blood by Automated count Low 1.8-7.7 [facility] Neutrophils/100 WBC Auto (Bl d)Ordered By: Nas Farrell on 09-21-2024 Neutrophils/100 WBC (Bld) Automated neutrophil % . [facility] No Panel InformationOrdered By: Nas Farrell on 09-21-2024 Estimated GFR (CKD-EPI) > 60.0 mL/Min [facility] Creatinine Clearance (Chem N/A [facility] Nucleated erythrocytes [Pres ence] in Blood by Automated countOrdered By: Nas Farrell on 09-21-2024 Nucleated RBC Auto Ql (Bld) Nucleated erythrocytes [Presence] in Blood by Automated count 0-0.5 [facility] Platelet adequacy [Presence] in Blood by Light microscopyOrdered By: Nas Farrell on 09-21-2024 Platelets LM Ql (Bld) Platelet adequacy [Presence] in Blood by Light microscopy Normal [facility] Platelet mean volume Auto (B ld) [Entitic vol]Ordered By: Nas Farrell on 09-21-2024 Platelet mean volume (Bld) [Entitic vol] Platelet mean volume [Entitic volume] in Blood by Automated count High 6.6-10.1 [facility] Platelet morphology finding [Identifier] in BloodOrdered By: Nas Farrell on 09-21-2024 Platelet morphology finding Nom (Bld) Platelet morphology finding [Identifier] in Blood Normal [facility] Platelets Auto (Bld) [#/Vol] Ordered By: Nas Farrell on 09-21-2024 Platelets (Bld) [#/Vol] Platelets [#/vol ume] in Blood by Automated count 150-450 [facility] Potassium [Moles/volume] in Serum or PlasmaOrdered By: Nas Farrell on 09-21-2024 Potassium [Moles/Vol] Potassium [Moles/volume] in Serum or Plasma 3.5-5.1 [facility] Protein [Mass/volume] in Ser um or PlasmaOrdered By: Nas Farrell on 09-21-2024 Protein [Mass/Vol] Protein [Mass/volume ] in Serum or Plasma 6.4-8.9 [facility] RBC Auto (Bld) [#/Vol]Ordere d By: Nas aFrrell on 09-21-2024 RBC (Bld) [#/Vol] Erythrocytes [#/volume] in Blood by Automated count 3.90-5.60 [facility] Scan and CBCon 09-21-2024 Basophils (Bld) [#/Vol] 0.0 10*3/uL Normal 0.0-0.2 [facility] Comment on above: Performed By: #### L IPID, CMP wRFX A1C, T4F, SCAN CBC, TSH3 #### [facility] [address] [id number] [place] Basophils/100 WBC (Bld) 1.0 % Normal . T marianela [facility] Comment on above: Performed By: #### L IPID, CMP wRFX A1C, T4F, SCAN CBC, TSH3 #### [facility] [address] [place] [address] [place] Eosinophils (Bld) [#/Vol] 0.1 10*3/uL Normal 0.0-0.45 [facility] Comment on above: Performed By: #### L IPID, CMP wRFX A1C, T4F, SCAN CBC, TSH3 #### [facility] [address] [id number] [place] Eosinophils/100 WBC (Bld) 2.4 % Normal . [facility] Comment on above: Performed By: #### L IPID, CMP wRFX A1C, T4F, SCAN CBC, TSH3 #### [address] Erythrocyte distribution width (RBC) [Ratio] 13.0 % Normal 12.0-14.8 [facility] Comment on above: Performed By: #### L IPID, CMP wRFX A1C, T4F, SCAN CBC, TSH3 #### [address] Hematocrit (Bld) [Volume fraction] 46.9 % Normal 38.8-50.0 [facility] Comment on above: Performed By: #### L IPID, CMP wRFX A1C, T4F, SCAN CBC, TSH3 #### [address] Hemoglobin (Bld) [Mass/Vol] 16.3 g/dL Normal 13.0-17.0 [facility] Comment on above: Performed By: #### L IPID, CMP wRFX A1C, T4F, SCAN CBC, TSH3 #### [address] Lymphocytes (Bld) [#/Vol] 1.7 10*3/uL Normal 1.00-4.8 [facility] Comment on above: Performed By: #### L IPID, CMP wRFX A1C, T4F, SCAN CBC, TSH3 #### [address] Lymphocytes/100 WBC (Bld) 46.1 % Normal . [facility] Comment on above: Performed By: #### L IPID, CMP wRFX A1C, T4F, SCAN CBC, TSH3 #### [address] MCH (RBC) [Entitic mass] 32.5 pg Normal 27.5-35.2 [facility] Comment on above: Performed By: #### L IPID, CMP wRFX A1C, T4F, SCAN CBC, TSH3 #### [address] MCV (RBC) [Entitic vol] 93.7 fL Normal 83.5-101 [facility] Comment on above: Performed By: #### L IPID, CMP wRFX A1C, T4F, SCAN CBC, TSH3 #### [address] Mean Corpuscular HGB Conc 34.7 g/dL Normal 32.5-35.6 [facility] Comment on above: Performed By: #### L IPID, CMP wRFX A1C, T4F, SCAN CBC, TSH3 #### [address] Monocytes (Bld) [#/Vol] 0.3 10*3/uL Normal 0.0-0.8 [facility] Comment on above: Performed By: #### L IPID, CMP wRFX A1C, T4F, SCAN CBC, TSH3 #### [address] Monocytes/100 WBC (Bld) 8.8 % Normal . [facility] Comment on above: Performed By: #### L IPID, CMP wRFX A1C, T4F, SCAN CBC, TSH3 #### [address] Neutrophils (Bld) [#/Vol] 1.5 10*3/uL Low 1.8-7.7 [facility] Comment on above: Performed By: #### L IPID, CMP wRFX A1C, T4F, SCAN CBC, TSH3 #### [address] Neutrophils/100 WBC (Bld) 41.7 % Normal . [facility] Comment on above: Performed By: #### L IPID, CMP wRFX A1C, T4F, SCAN CBC, TSH3 #### [address] NRBC% 0.3 /100{WBC} Normal 0-0.5 [facility] Comment on above: Performed By: #### L IPID, CMP wRFX A1C, T4F, SCAN CBC, TSH3 #### [address] Platelet Estimate Normal Normal Normal [facility] Comment on above: Performed By: #### L IPID, CMP wRFX A1C, T4F, SCAN CBC, TSH3 #### [address] Platelet mean volume (Bld) [Entitic vol] 10.4 fL High 6.6-10.1 [facility] Comment on above: Performed By: #### L IPID, CMP wRFX A1C, T4F, SCAN CBC, TSH3 #### [address] Platelet Morphology Normal Normal Normal [facility] Comment on above: Result Comment: PERF ORMED BY: [place] [address] PATHOLOGIST OBSTETRICS NURSE GERMÁN BAE M.D. Performed By: #### L IPID, CMP wRFX A1C, T4F, SCAN CBC, TSH3 #### [address] Platelets (Bld) [#/Vol] 168 10*3/uL Normal 150-450 [facility] Comment on above: Performed By: #### L IPID, CMP wRFX A1C, T4F, SCAN CBC, TSH3 #### [address] RBC (Bld) [#/Vol] 5.01 10*6/uL Normal 3.90-5.60 [facility] Comment on above: Performed By: #### L IPID, CMP wRFX A1C, T4F, SCAN CBC, TSH3 #### [address] RBC morphology finding Nom (Bld) Normal Normal Normal [facility] Comment on above: Performed By: #### L IPID, CMP wRFX A1C, T4F, SCAN CBC, TSH3 #### [facility] [address] WBC (Bld) [#/Vol] 3.6 10*3/uL Low 4.1-10.5 [facility] Comment on above: Performed By: #### L IPID, CMP wRFX A1C, T4F, SCAN CBC, TSH3 #### [facility] [address] Serum or plasma albumin/glob ulin mass ratioOrdered By: Nas Farrell on 09-21-2024 Albumin/Globulin [Mass ratio] Serum or plasma albumin/globulin mass ratio [facility] Serum or plasma anion gap de terminationOrdered By: Nas Farrell on 09-21-2024 Anion gap [Moles/Vol] Serum or plasma an ion gap determination 6.0-15.0 [facility] Serum or plasma total choles terol/high density lipoprotein (HDL) cholesterol mass ratOrdered By: Nas Farrell on 09-21-2024 Cholesterol.total/Choles terol in HDL [Mass ratio] Serum or plasma total cholesterol/high density lipoprotein (HDL) cholesterol mass rat <5.0 [facility] Sodium [Moles/volume] in Ser um or PlasmaOrdered By: Nas Farrell on 09-21-2024 Sodium [Moles/Vol] Sodium [Moles/volume ] in Serum or Plasma 136-145 [facility] Thyroid Stimulating Hormoneo n 09-21-2024 TSH Qn 2.54 m[IU]/L Normal 0.45-5.33 [facility] Comment on above: Result Comment: PERF ORMED BY: [place] [address] PATHOLOGIST OBSTETRICS NURSE GERMÁN BAE M.D. Performed By: #### L IPID, CMP wRFX A1C, T4F, SCAN CBC, TSH3 #### [facility] [address] Thyrotropin [Units/volume] i n Serum or PlasmaOrdered By: Nas Farrell on 09-21-2024 TSH Qn Thyrotropin [Units/volume] in Serum or Plasma 0.45-5.33 [facility] Thyroxine (T4) free [Mass/vo lume] in Serum or PlasmaOrdered By: Nas Farrell on 09-21-2024 Free T4 [Mass/Vol] Thyroxine (T4) free [Mass/volume] in Serum or Plasma 0.61-1.12 [facility] Triglyceride [Mass/volume] i n Serum or PlasmaOrdered By: Nas Farrell on 09-21-2024 Triglyceride [Mass/Vol] Triglyceride [Mass/volume] in Serum or Plasma 0-149 [facility] Comment on above: TRIG ATP III CLASSIF ICATIONTRIG less than 150 mg/dL NormalTRIG 150-199 mg/dL Borderline highTRIG 200-500 mg/dL High TRIG greater than 500 mg/dL Very highStandard traceable to the Center for Disease Conrtrol and Prevention (CDC) test method. Urea nitrogen [Mass/volume] in Serum or PlasmaOrdered By: Nas Farrell on 09-21-2024 Urea nitrogen [Mass/Vol] Urea nitrogen [Mass/volume] in Serum or Plasma 7-25 [facility] WBC Auto (Bld) [#/Vol]Ordere d By: Nas Farrell on 09-21-2024 WBC (Bld) [#/Vol] Leukocytes [#/volume ] in Blood by Automated count Low 4.1-10.5 [facility] Registrationon 11-11-2023 Registration [id number]# 1.00TIFF Normal [facility] Lab - Toxicology Resultson 0 10-27-2023 Lab - Toxicology Results [id number]#1.0 0OTGTIFF [facility] Consent Formson 10-22-2023 Consent Forms [id number]#1.0 0OTGTIFF [facility] Triage Panel 10on 10-21-2023 Drug Screen Complete Collected Normal [facility] Comment on above: Performed By: #### 2 [id number] #### [facility] (DEFAULT) [address] [place] [address] ED Clinical Summaryon 2023 ED Clinical Summary [facility] ? Urgent Care [address] [place] [id number] Clinical Summary PERSON INFORMATION Name: JOHN STARR CHAPARRITA Age: 27 Years Sex: MALE : 1995 MRN: Acct#: Visit Reason: Medical screening exam; [facility] Arrival: 10/20/2023 13:26:18 Discharge: 10/20/2023 14:15:00 LOS: 000 00:49 Check In: 10/20/2023 13:26:18 Checkout: 10/20/2023 14:15:00 Address: [address] [place] [id number] PCP: Provider, None PROVIDER INFORMATION Provider Role [...] DIAGNOSIS: Physical exam Patient Understands: Yes - Patient/family/caregi jesus manuel verbalizes understanding of instructions given Comment: Normal [facility] ED Patient Summaryon 024 ED Patient Summary [facility] ? Urgent Care [address] [place] [id number] PATIENT DISCHARGE INSTRUCTIONS Patient Information Name: JOHN [...] and treatment you received today in the [facility] were for an urgent problem and are not intended as complete care. It is important for you to follow up with a doctor, nurse practitioner, or physician?s assistant cross country coach for ongoing care. If your symptoms become [...] so we can reach you if necessary. [facility] Emergency Department has provided you with a complete list of medications post discharge. Please inform your service worker helper/provider of your visit and for further instruction on these medications. Any specific questions regarding your chronic medications and dosages should be discussed with your primary care physician(s) and/or pharmacist. Visit Information Visit Diagnosis: Diagnoses This Visit Medical screening exam ([id number]) Physical exam (Z00.00) If you received any [...] Disease Control and Prevention February 2014 Normal [facility] Urgent Care Note- Provideron 10-20-2023 Urgent [...] Signed on: 10/20/2023 14:12 EDT] Luis Perez PA-C [Verified on: 10/20/2023 14:12 EDT] Luis Perez PA-C [facility] [address] 024 Urgent Care Record [facility] ? Urgent Care [address] [place] [address] PATIENT DISCHARGE INSTRUCTIONS Patient Information Name: JOHN STARR Age: 27 Years Date of : 1995 [facility]: [id number] Reason For Visit: Medical screening exam; [facility] Arrival Time: 10/20/2023 13:26:18 Primary Care Physician: Provider, None Attending Physician: Luis Perez PA-C Comment: Visit Diagnosis: Diagnoses This Visit Medical screening exam ([id number]) Physical exam (Z00.00) If you received any [...] and treatment you received today in the [facility] Care were for an urgent problem and are not intended as complete care. It is important for you to follow up with a doctor, nurse practitioner, or physician?s assistant cross country coach for ongoing care. If your symptoms become [...] so we can reach you if necessary. [facility] Care has provided you with a complete list of medications post discharge. Please inform your service worker helper/provider of your visit and for further instruction [...] for Disease Control and Prevention February 2014 [facility] Alanine aminotransferase [En zymatic activity/volume] in Serum or PlasmaOrdered By: Carmen Good on 04-27-2023 ALT [Catalytic activity/Vol] 23 U/L 7-52 [facility] Albumin [Mass/volume] in Ser um or Plasma by Bromocresol green (BCG) dye binding methoOrdered By: Carmen Good on 04-27-2023 Albumin BCG dye [Mass/Vol] 4.5 g/dL 3.5-5.7 [facility] Alkaline phosphatase [Enzyma tic activity/volume] in Serum or PlasmaOrdered By: Carmen Good on 04-27-2023 ALP [Catalytic activity/Vol] 57 U/L 34-104 [facility] Anisocytosis LM Ql (Bld)Orde red By: Carmen Good on 04-27-2023 Anisocytosis Ql (Bld) Slight [facility] Aspartate aminotransferase [ Enzymatic activity/volume] in Serum or PlasmaOrdered By: Carmen Good on 04-27-2023 AST [Catalytic activity/Vol] 31 U/L 13-39 [facility] Basophils Auto (Bld) [#/Vol] Ordered By: Carmen Good on 04-27-2023 Basophils (Bld) [#/Vol] 0.0 10*3/uL 0.0-0.2 [facility] Basophils/100 WBC Auto (Bld) Ordered By: Carmen Good on 04-27-2023 Basophils/100 WBC (Bld) 0.5 % . [facility] Bilirubin.total [Mass/volume ] in Serum or PlasmaOrdered By: Carmen Good on 04-27-2023 Bilirubin [Mass/Vol] 1.5 mg/dL 0.3-1.0 [facility] Comment on above: Samples from patient s who have taken Naproxen have shown spurious elevation in Total Bilirubin levels. A metabolite of Naproxen, O-desmethylnaproxen, has been shown to interfere with the Cornelia-Hetal method for measuring Total Bilirubin. Calcium [Mass/volume] in Ser um or PlasmaOrdered By: Carmen Good on 04-27-2023 Calcium [Mass/Vol] 9.2 mg/dL 8.6-10.3 [facility] Carbon dioxide, total [Moles /volume] in Serum or PlasmaOrdered By: Carmen Good on 04-27-2023 CO2 [Moles/Vol] 28.7 mmol/L 21.0-31.0 [facility] Chloride [Moles/volume] in S dion or PlasmaOrdered By: Carmen Good on 04-27-2023 Chloride [Moles/Vol] 93 mmol/L 98-107 [facility] Creatinine [Mass/volume] in Serum or PlasmaOrdered By: Carmen Good on 04-27-2023 Creatinine [Mass/Vol] 0.77 mg/dL 0.70-1.30 [facility] Eosinophils Auto (Bld) [#/Vo l]Ordered By: Carmen Good on 04-27-2023 Eosinophils (Bld) [#/Vol] 0.0 10*3/uL 0.0-0.45 [facility] Eosinophils/100 WBC Auto (Bl d)Ordered By: Carmen Good on 04-27-2023 Eosinophils/100 WBC (Bld) 0.7 % . [facility] Erythrocyte distribution wid th Auto (RBC) [Ratio]Ordered By: Carmen Good on 04-27-2023 Erythrocyte distribution width (RBC) [Ratio] 12.4 % 12.0-14.8 [facility] Globulin Calc (S) [Mass/Vol] Ordered By: Carmen Good on 04-27-2023 Globulin (S) [Mass/Vol] 2.8 g/dL [facility] Glucose [Mass/volume] in Ser um or PlasmaOrdered By: Carmen Good on 04-27-2023 Glucose [Mass/Vol] 98 mg/dL 70-100 [facility] Comment on above: ADA recommended refe rence rangeRandom Glucose Reference Range is dependent on time and content of last meal. Glucose of more than 200 mg/dL in a nonstressed, ambulatory subject supports the diagnosis of Diabetes Mellitus. Hematocrit Auto (Bld) [Volum e fraction]Ordered By: Carmen Good on 04-27-2023 Hematocrit (Bld) [Volume fraction] 46.0 % 38.8-50.0 [facility] Hemoglobin [Mass/volume] in BloodOrdered By: Carmen Good on 04-27-2023 Hemoglobin (Bld) [Mass/Vol] 16.3 g/dL 13.0-17.0 [facility] Lactate [Moles/volume] in Se rum or PlasmaOrdered By: Carmen Good on 04-27-2023 Lactate [Moles/Vol] 1.0 mmol/L 0.5-2.2 [facility] Leukocytes [#/volume] correc hilton for nucleated erythrocytes in Blood by Automated counOrdered By: Carmen Good on 04-27-2023 WBC corrected for nucl RBC Auto (Bld) [#/Vol] 5.9 10*3/uL 4.1-10.5 [facility] Comment on above: WBC, PLT, MPV result s from NaCit specimen due to plt clumping in EDTA specimen Lymphocytes Auto (Bld) [#/Vo l]Ordered By: Carmen Good on 04-27-2023 Lymphocytes (Bld) [#/Vol] 0.9 10*3/uL 1.00-4.8 [facility] Lymphocytes/100 WBC Auto (Bl d)Ordered By: Carmen Good on 04-27-2023 Lymphocytes/100 WBC (Bld) 15.0 % . [facility] MCH Auto (RBC) [Entitic mass ]Ordered By: Carmen Good on 04-27-2023 MCH (RBC) [Entitic mass] 32.1 pg 27.5-35.2 [facility] MCHC Auto (RBC) [Mass/Vol]Or dered By: Carmen Good on 04-27-2023 MCHC (RBC) [Mass/Vol] 35.4 g/dL 32.5-35.6 Fir [facility] MCV Auto (RBC) [Entitic vol] Ordered By: Carmen Good on 04-27-2023 MCV (RBC) [Entitic vol] 90.5 fL 83.5-101 [facility] Microcytes LM Ql (Bld)Ordere d By: Carmen Good on 04-27-2023 Microcytes Ql (Bld) Slight [facility] Monocyte distribution width [Entitic volume] in Blood by AutomatedOrdered By: Carmen Good on 04-27-2023 Monocyte distribution width Auto (Bld) [Entitic vol] 17.81 % 0.00-20.00 [facility] Monocytes Auto (Bld) [#/Vol] Ordered By: Carmen Good on 04-27-2023 Monocytes (Bld) [#/Vol] 0.4 10*3/uL 0.0-0.8 [facility] Monocytes/100 WBC Auto (Bld) Ordered By: Carmen Good on 04-27-2023 Monocytes/100 WBC (Bld) 6.3 % . [facility] Neutrophils Auto (Bld) [#/Vo l]Ordered By: Carmen Good on 04-27-2023 Neutrophils (Bld) [#/Vol] 4.7 10*3/uL 1.8-7.7 [facility] Neutrophils/100 WBC Auto (Bl d)Ordered By: Carmen Good on 04-27-2023 Neutrophils/100 WBC (Bld) 77.5 % . [facility] No Panel InformationOrdered By: Carmen Godo on 04-27-2023 Estimated GFR (CKD-EPI) > 60.0 mL/Min [facility] Creatinine Clearance (Chem 158.54 [facility] Nucleated erythrocytes [Pres ence] in Blood by Automated countOrdered By: Carmen Good on 04-27-2023 Nucleated RBC Auto Ql (Bld) 0.3 /100{WBC} 0-0.5 [facility] Platelet adequacy [Presence] in Blood by Light microscopyOrdered By: Carmen Good on 04-27-2023 Platelets LM Ql (Bld) Normal Normal [facility] Platelet mean volume Auto (B ld) [Entitic vol]Ordered By: Carmen Good on 04-27-2023 Platelet mean volume (Bld) [Entitic vol] 7.8 fL 6.6-10.1 [facility] Comment on above: WBC, PLT, MPV result s from NaCit specimen due to plt clumping in EDTA specimen Platelet morphology finding [Identifier] in BloodOrdered By: Carmen Good on 04-27-2023 Platelet morphology finding Nom (Bld) Normal Normal [facility] Platelets Auto (Bld) [#/Vol] Ordered By: Carmen Good on 04-27-2023 Platelets (Bld) [#/Vol] 231 10*3/uL 150-450 [facility] Comment on above: WBC, PLT, MPV result s from NaCit specimen due to plt clumping in EDTA specimen Poikilocytosis [Presence] in Blood by Light microscopyOrdered By: Carmen Good on 04-27-2023 Poikilocytosis LM Ql (Bld) Slight [facility] Potassium [Moles/volume] in Serum or PlasmaOrdered By: Carmen Good on 04-27-2023 Potassium [Moles/Vol] 3.6 mmol/L 3.5-5.1 [facility] Protein [Mass/volume] in Ser um or PlasmaOrdered By: Carmen Good on 04-27-2023 Protein [Mass/Vol] 7.3 g/dL 6.4-8.9 [facility] RBC Auto (Bld) [#/Vol]Ordere d By: Carmen Good on 04-27-2023 RBC (Bld) [#/Vol] 5.08 10*6/uL 3.90-5.60 [facility] RBC morphologyOrdered By: Rosa Isela Good on 04-27-2023 RBC morphology finding Nom (Bld) N/A [facility] Red blood cell stomatocyte d etectionOrdered By: Carmen Good on 04-27-2023 Stomatocytes LM Ql (Bld) [facility] Serum or plasma albumin/glob ulin mass ratioOrdered By: Carmen Good on 04-27-2023 Albumin/Globulin [Mass ratio] 1.6 {ratio} [facility] Serum or plasma anion gap de terminationOrdered By: Carmen Good on 04-27-2023 Anion gap [Moles/Vol] 11.9 mmol/L 6.0-15.0 [facility] Sodium [Moles/volume] in Ser um or PlasmaOrdered By: Carmen Good on 04-27-2023 Sodium [Moles/Vol] 130 mmol/L 136-145 [facility] Toxic leukocyte vacuolation detectionOrdered By: Carmen Good on 04-27-2023 Leukocyte toxic vacuoles LM Ql (Bld) [facility] Urea nitrogen [Mass/volume] in Serum or PlasmaOrdered By: Carmen Good on 04-27-2023 Urea nitrogen [Mass/Vol] 3 mg/dL 7-25 [facility] WBC Auto (Bld) [#/Vol]Ordere d By: Carmen Good on 04-27-2023 WBC (Bld) [#/Vol] 5.9 10*3/uL 4.1-10.5 [facility] Comment on above: WBC, PLT, MPV result s from NaCit specimen due to plt clumping in EDTA specimen [facility] SARS-CoV-2 (COVID-19) RNA SOLANGE+probe Ql (Unsp spec) Not detected Normal NOT DETECTED [facility] Comment on above: Result Comment: This test is not yet approved or cleared by the [place] FDA. When there are no FDA-approved or cleared tests available, and other criteria are met, FDA can make tests available under an emergency access mechanism called an Emergency Use Authorization (EUA). The EUA for this test is supported by the Vocational Nursing Instructor of Health and Human Service's (HHS's) declaration [...] SARS-CoV-2. Performed By: #### C VDTBH #### [facility] [address] [address] [address] Matteo Hale INFLUENZA A AND B AGon 05[facility] Normal [facility] Comment on above: Result Comment: Nega tive for Flu A protein angiten. Infection due to Flu A cannot be ruled out. Flu A angiten in the sample may be below the detection limit of the test. Performed By: #### I NFLUAB ####[facility] [id number] [place], [place] [address]NqDr. Matteo Hale INFLUBNEGH SEE BELOW Normal [facility] Comment on above: Result Comment: Nega tive for Flu B protein antigen. Infection due to Flu B cannot be ruled out. Flu B antigen in the sample may be below the detection limit of the test. Performed By: #### I NFLUAB ####[facility] [id number] [address]Dr. Matteo Hale INFLUENZA A AG Negative Normal NEGATIVE SEE COMMENT [facility] Comment on above: Performed By: #### I NFLUAB ####[facility] [id number] [place], [place] [address]Vs. Matteo Hale INFLUENZA B AG Negative Normal NEGATIVE SEE COMMENT [facility] Comment on above: Performed By: #### I NFLUAB ####[facility] [address] [place], [place] [address]Lx. Matteo Hale INTERNAL CONTROLS Within Normal Limits Normal Wi thin Normal Limits [facility] Comment on above: Performed By: #### I NFLUAB ####[facility] [id number] [place], [place] [address]Tz. Matteo Hale Albumin [Mass/volume] in Ser um or PlasmaOrdered By: Rigo Sy on 04-21-2022 Albumin [Mass/Vol] 4.2 g/dL 3.2-5.5 [facility] Basophils Auto (Bld) [#/Vol] Ordered By: Rigo Sy on 04-21-2022 Basophils (Bld) [#/Vol] 0.0 10*3/uL 0.0-0.2 [facility] Basophils/100 WBC Auto (Bld) Ordered By: Rigo Sy on 04-21-2022 Basophils/100 WBC (Bld) 0.4 % . [facility] Creatinine and Glomerular fi ltration rate.predicted panel (S/P/Bld)Ordered By: Rigo Sy on 04-21-2022 Creatinine [Mass/Vol] 1.13 mg/dL 0.64-1.27 [facility] Eosinophils Auto (Bld) [#/Vo l]Ordered By: Rigo Sy on 04-21-2022 Eosinophils (Bld) [#/Vol] 0.1 10*3/uL 0.0-0.45 [facility] Eosinophils/100 WBC Auto (Bl d)Ordered By: Rigo Sy on 04-21-2022 Eosinophils/100 WBC (Bld) 1.0 % . [facility] Erythrocyte distribution wid th Auto (RBC) [Ratio]Ordered By: Rigo Sy on 04-21-2022 Erythrocyte distribution width (RBC) [Ratio] 12.5 % 12.0-14.8 [facility] Estimated glomerular filtrat ion rate (GFR) non- AmericanOrdered By: Rigo Sy on 04-21-2022 GFR/1.73 sq M.predicted among non-blacks MDRD (S/P/Bld) [Vol rate/Area] > 60 mL/Min [facility] Globulin Calc (S) [Mass/Vol] Ordered By: Rigo Sy on 04-21-2022 Globulin (S) [Mass/Vol] 2.8 g/dL [facility] Hematocrit Auto (Bld) [Volum e fraction]Ordered By: Rigo Sy on 04-21-2022 Hematocrit (Bld) [Volume fraction] 50.3 % 38.8-50.0 [facility] Hemoglobin [Mass/volume] in BloodOrdered By: Rigo Sy on 04-21-2022 Hemoglobin (Bld) [Mass/Vol] 17.5 g/dL 13.0-17.0 [facility] Laboratory - Hematology and Cell countsOrdered By: Rigo Sy on 04-21-2022 Nucleated RBC/100 WBC (Bld) [Ratio] 0.1 % 0-0.5 [facility] Leukocytes [#/volume] in Blo od by Automated countOrdered By: Rigo Sy on 04-21-2022 WBC (Bld) [#/Vol] 8.0 10*3/uL 4.5-11.0 [facility] Lymphocytes Auto (Bld) [#/Vo l]Ordered By: Rigo Sy on 04-21-2022 Lymphocytes (Bld) [#/Vol] 1.2 10*3/uL 1.00-4.8 [facility] Lymphocytes/100 WBC Auto (Bl d)Ordered By: Rigo Sy on 04-21-2022 Lymphocytes/100 WBC (Bld) 15.4 % . [facility] MCH Auto (RBC) [Entitic mass ]Ordered By: Rigo Sy on 04-21-2022 MCH (RBC) [Entitic mass] 31.6 pg 27.5-35.2 [facility] MCHC Auto (RBC) [Mass/Vol]Or dered By: Rigo Sy on 04-21-2022 MCHC (RBC) [Mass/Vol] 34.8 g/dL 32.5-35.6 [facility] MCV Auto (RBC) [Entitic vol] Ordered By: Rigo Sy on 04-21-2022 MCV (RBC) [Entitic vol] 90.8 fL 83.5-101 [facility] Monocytes Auto (Bld) [#/Vol] Ordered By: Rigo Sy on 04-21-2022 Monocytes (Bld) [#/Vol] 0.6 10*3/uL 0.0-0.8 [facility] Monocytes/100 WBC Auto (Bld) Ordered By: Rigo Sy on 04-21-2022 Monocytes/100 WBC (Bld) 7.7 % . [facility] Neutrophils Auto (Bld) [#/Vo l]Ordered By: Rigo Sy on 04-21-2022 Neutrophils (Bld) [#/Vol] 6.1 10*3/uL 1.8-7.7 [facility] Neutrophils/100 WBC Auto (Bl d)Ordered By: Rigo Sy on 04-21-2022 Neutrophils/100 WBC (Bld) 75.5 % . [facility] No Panel InformationOrdered By: Rigo Sy on 04-21-2022 Estimated GFR () > 60 mL/Min [facility] Comment on above: GFR estimated refere nce range: According to KDOQI guidelines, <60 ml/min/1.73m2 is sufficient to diagnose a patient with chronic kidney disease. Pharmacy Creatinine Clearance (Chem 105.15 [facility] Platelet mean volume Auto (B ld) [Entitic vol]Ordered By: Rigo Sy on 04-21-2022 Platelet mean volume (Bld) [Entitic vol] 9.9 fL 6.6-10.1 [facility] Platelets Auto (Bld) [#/Vol] Ordered By: Rigo Sy on 04-21-2022 Platelets (Bld) [#/Vol] 226 10*3/uL 150-450 [facility] Protein [Mass/volume] in Ser um or PlasmaOrdered By: Rigo Sy on 04-21-2022 Protein [Mass/Vol] 7.0 g/dL 6.1-7.9 [facility] RBC Auto (Bld) [#/Vol]Ordere d By: Rigo Sy on 04-21-2022 RBC (Bld) [#/Vol] 5.54 10*6/uL 3.90-5.60 [facility] Salicylates [Mass/volume] in Serum or PlasmaOrdered By: Rigo Sy on 04-21-2022 Salicylates [Mass/Vol] mg/dL 15.0-30.0 [facility] Comment on above: Patients treated wit h Sulfasalazine may generate a false high result for Salicylate.Patients treated with Sulfapyridine may generate a false low result for Salicylate. Serum or plasma acetaminophe n measurement (mass/volume)Ordered By: Rigo Sy on 04-21-2022 Acetaminophen [Mass/Vol] 44.2 ug/mL 10.0-30.0 [facility] Comment on above: 4 hours after dose, critical > 01631 hours after dose, critical > 40 Serum or plasma alanine roland otransferase measurement without P-5'-P (enzymatic activiOrdered By: Rigo Sy on 04-21-2022 ALT No additional P-5'-P [Catalytic activity/Vol] 19 U/L 10-60 [facility] Serum or plasma albumin/glob ulin mass ratioOrdered By: Rigo Sy on 04-21-2022 Albumin/Globulin [Mass ratio] 1.5 {ratio} [facility] Serum or plasma alkaline praveen sphatase measurement (enzymatic activity/volume)Ordered By: Rigo Sy on 04-21-2022 ALP [Catalytic activity/Vol] 64 U/L 32-92 [facility] Serum or plasma anion gap de terminationOrdered By: Rigo Sy on 04-21-2022 Anion gap [Moles/Vol] 13.4 mmol/L 6.0-15.0 [facility] Serum or plasma aspartate am inotransferase measurement (enzymatic activity/volume)Ordered By: Rigo Sy on 04-21-2022 AST [Catalytic activity/Vol] 22 U/L 10-42 [facility] Serum or plasma calcium liz urement (mass/volume)Ordered By: Rigo Sy on 04-21-2022 Calcium [Mass/Vol] 9.3 mg/dL 8.2-10.2 [facility] Serum or plasma chloride maik surement (moles/volume)Ordered By: Rigo Sy on 04-21-2022 Chloride [Moles/Vol] 100 mmol/L 95-114 [facility] Serum or plasma ethanol liz urement (mass/volume)Ordered By: Rigo Sy on 04-21-2022 Ethanol [Mass/Vol] mg/dL [facility] Ethanol [Mass/Vol] TNP [facility] Comment on above: Test not performed Serum or plasma glucose liz urement (mass/volume)Ordered By: Rigo Sy on 04-21-2022 Glucose [Mass/Vol] 106 mg/dL 70-100 [facility] Comment on above: ADA recommended refe rence rangeRandom Glucose Reference Range is dependent on time and content of last meal. Glucose of more than 200 mg/dL in a nonstressed, ambulatory subject supports the diagnosis of Diabetes Mellitus. Serum or plasma potassium me asurement (moles/volume)Ordered By: Rigo Sy on 04-21-2022 Potassium [Moles/Vol] 4.3 mmol/L 3.5-5.1 [facility] Serum or plasma sodium measu rement (moles/volume)Ordered By: Rigo Sy on 04-21-2022 Sodium [Moles/Vol] 135 mmol/L 136-146 [facility] Serum or plasma total biliru bin measurement (mass/volume)Ordered By: Rigo Sy on 04-21-2022 Bilirubin [Mass/Vol] 1.3 mg/dL 0.3-1.2 [facility] Comment on above: Samples from patient s who have taken Naproxen have shown spurious elevation in Total Bilirubin levels. A metabolite of Naproxen, O-desmethylnaproxen, has been shown to interfere with the Elías method for measuring Total Bilirubin. Serum or plasma total carbon dioxide measurement (moles/volume)Ordered By: Rigo Kerrie on 04-21-2022 CO2 [Moles/Vol] 25.9 mmol/L 22.0-30.0 [facility] Serum or plasma urea nitroge n measurement (mass/volume)Ordered By: Rigo Kerrie on 04-21-2022 Urea nitrogen [Mass/Vol] 5 mg/dL 03-07 [facility] POINT OF CARE GLUCOSEon 02-13 Glucose [Mass/Vol] 89 mg/dL Normal 74-106 [facility] Comment on above: Performed By: #### P OCGLUC #### [facility] [address] [place] [address] Dr. Matteo Hale Glucose [Mass/Vol] 94 mg/dL Normal 74-106 [facility] Comment on above: Performed By: #### P OCGLUC #### [facility] [address] [place] [address] Dr. Matteo Hale Covid-19 PCR ([facility])on SARS-CoV-2 (COVID-19) RNA SOLANGE+probe Ql (Unsp spec) Not detected Normal NOT DETECTED [facility] Comment on above: Result Comment: This test is not yet approved or cleared by the [place] FDA. When there are no FDA-approved or cleared tests available, and other criteria are met, FDA can make tests available under an emergency access mechanism called an Emergency Use Authorization (EUA). The EUA for this test is supported by the Vocational Nursing Instructor of Health and Human Service's (HHS's) declaration [...] consistent with SARS-CoV-2. Performed By: #### C VDTB #### [facility] [address] [address] [address] Matteo Hale MRI ANKLE RT WO [...] CLEMENTINE CABRERA Date: 2022-02-04 08:19 Normal [facility] XR FOREIGN BODY EYEon 2021 XR FOREIGN BODY EYE EXAMINATION: XR FOREIGN BODY EYE HISTORY: Foreign body in eye COMPARISON: No relevant comparison available. FINDINGS: ORBITS: Negative for a metallic foreign body. OTHER: Negative. IMPRESSION: 1. No metallic foreign body within the orbits. Electronically authenticated by: BRENNON HEBERT Date: 2022-02-03 07:49 Normal [facility] XR TIB_FIB LT 2Von XR TIB_FIB LT [...] ALICIA DORAN Date: 2021-10-23 15:36 Normal [facility] ANKLE RIGHT 3 VWSon 06-13-20 21 ANKLE RIGHT 3 VWS [facility] Department of Radiology [address] [place] [id number] Patient Name: JOHN STARR : 1995 Sex: M Age: Race: Other Pt. Location: [facility] Patient Status: E Ordered Date: 06/13/2021 8:40:00 PM Completed Date: 06/13/2021 08:45 PM Requesting Provider: JERI BLEVINS Attending Provider: JERI BLEVINS Report Copy To: Signs & Symptoms: Deformity History: Comments: evaluate for FX Exam: ANKLE RIGHT 3 VWS ANKLE RIGHT 3 S 06/13/2021 8:45 PM CLINICAL INDICATIONS: Deformity TECHNOLOGIST COMMENTS: Patient states he was at [employer] and injured right ankle while jumping [...] fracture Electronically signed: Gini García. Transcribed by: [email or web address], User Resident: Electronically Signed by: GINI GARCÍA @ 06/13/2021 09:10 PM Normal [facility] Comment on above: Order Comment: evalu ate for FX Vital Signs Date Time Vital Sign Value Performing Clinician Facility 09-16-2024 10:34-0400 Body height 190.5 cm [facility] 09-16-2024 10:34-0400 Body mass index (BMI) [Ratio] 19.8 kg/m2 [facility] 09-16-2024 10:34-0400 Body weight 72.12 kg [facility] 09-16-2024 10:34-0400 Diastolic blood pressure 78 mm[Hg] [facility] 09-16-2024 10:34-0400 Heart rate 63 /min [facility] 09-16-2024 10:34-0400 Respiratory rate 16 /min [facility] 09-16-2024 10:34-0400 SaO2% (BldA) [Mass fraction] 98 % [facility] 09-16-2024 10:34-0400 Systolic blood pressure 118 mm[Hg] [facility] 01-09-2024 21:18-0400 Body height 190.5 cm DO Nas Kuns Work Phone: [facility] 01-09-2024 21:18-0400 Body temperature 98.1 [degF] DO Nas Kuns Work Phone: [facility] 01-09-2024 21:18-0400 Body weight 66.75 kg DO Nas Kuns Work Phone: [facility] 01-09-2024 21:18-0400 Diastolic blood pressure 97 mm[Hg] DO Nas Kuns Work Phone: [facility] 01-09-2024 21:18-0400 Heart rate 68 /min DO Nas Kuns Work Phone: [facility] 01-09-2024 21:18-0400 Respiratory rate 20 /min DO Nas Kuns Work Phone: [facility] 01-09-2024 21:18-0400 SaO2% (BldA) [Mass fraction] 98 % DO Nas Kuns Work Phone: [facility] 01-09-2024 21:18-0400 Systolic blood pressure 142 mm[Hg] DO Nas Kuns Work Phone: [facility] 04-28-2023 21:31-0500 Body height 190.5 cm DO Nas Kuns Work Phone: [facility] 04-28-2023 21:31-0500 Body weight 74 kg DO Nas Kuns Work Phone: [facility] 04-28-2023 21:29-0500 Body temperature 98.1 [degF] DO Nas Kuns Work Phone: [facility] 04-28-2023 21:29-0500 Diastolic blood pressure 100 mm[Hg] DO Nas Kuns Work Phone: [facility] 04-28-2023 21:29-0500 Heart rate 69 /min DO Nas Kuns Work Phone: [facility] 04-28-2023 21:29-0500 Respiratory rate 18 /min DO Nas Kuns Work Phone: [facility] 04-28-2023 21:29-0500 SaO2% (BldA) [Mass fraction] 98 % DO Nas Kuns Work Phone: [facility] 04-28-2023 21:29-0500 Systolic blood pressure 177 mm[Hg] DO Nas Kuns Work Phone: [facility] 04-27-2023 15:11-0500 Diastolic blood pressure 66 mm[Hg] DO Nas Kuns Work Phone: [facility] 04-27-2023 15:11-0500 Heart rate 78 /min DO Nas Kuns Work Phone: [facility] 04-27-2023 15:11-0500 Respiratory rate 17 /min DO Nas Kuns Work Phone: [facility] 04-27-2023 15:11-0500 SaO2% (BldA) [Mass fraction] 99 % DO Nas Kuns Work Phone: [facility] 04-27-2023 15:11-0500 Systolic blood pressure 152 mm[Hg] DO Nas Kuns Work Phone: [facility] 04-27-2023 10:16-0500 Body height 190.5 cm DO Nas Kuns Work Phone: [facility] 04-27-2023 10:16-0500 Body temperature 97.7 [degF] DO Nas Kuns Work Phone: [facility] 04-27-2023 10:16-0500 Body weight 77.1 kg DO Nas Kuns Work Phone: [facility] 04-26-2023 22:50-0500 Diastolic blood pressure 99 mm[Hg] DO Nas Kuns Work Phone: [facility] 04-26-2023 22:50-0500 Heart rate 70 /min DO Nas Kuns Work Phone: [facility] 04-26-2023 22:50-0500 Respiratory rate 16 /min DO Nas Kuns Work Phone: [facility] 04-26-2023 22:50-0500 SaO2% (BldA) [Mass fraction] 98 % DO Nas Kuns Work Phone: [facility] 04-26-2023 22:50-0500 Systolic blood pressure 155 mm[Hg] DO Nas Kuns Work Phone: [facility] 04-26-2023 22:02-0500 Body height 190.5 cm DO Nas Kuns Work Phone: [facility] 04-26-2023 22:02-0500 Body temperature 97.9 [degF] DO Nas Kuns Work Phone: [facility] 04-26-2023 22:02-0500 Body weight 76 kg DO Nas Kuns Work Phone: [facility] [facility] 04-26-2023 15:26-0500 Body temperature 98.3 [degF] DO Nas Kuns Work Phone: [facility] 04-26-2023 15:26-0500 Diastolic blood pressure 102 mm[Hg] DO Nas Kuns Work Phone: [facility] 04-26-2023 15:26-0500 Heart rate 71 /min DO Nas Kuns Work Phone: [facility] 04-26-2023 15:26-0500 Respiratory rate 16 /min DO Nas Kuns Work Phone: [facility] 04-26-2023 15:26-0500 SaO2% (BldA) [Mass fraction] 99 % DO Nas Kuns Work Phone: [facility] 04-26-2023 15:26-0500 Systolic blood pressure 182 mm[Hg] DO Nas Kuns Work Phone: [facility] 04-26-2023 15:25-0500 Body height 190.5 cm DO Nas Kuns Work Phone: [facility] 04-26-2023 15:25-0500 Body weight 75.8 kg DO Nas Kuns Work Phone: [facility] 04-25-2023 14:20-0500 Heart rate 70 /min DO Nas Kuns Work Phone: [facility] 04-25-2023 14:14-0500 Body height 190.5 cm DO Nas Kuns Work Phone: [facility] 04-25-2023 14:14-0500 Body temperature 98.2 [degF] DO Nas Kuns Work Phone: [facility] 04-25-2023 14:14-0500 Body weight 71.85 kg DO Nas Kuns Work Phone: [facility] 04-25-2023 14:14-0500 Diastolic blood pressure 130 mm[Hg] DO Nas Kuns Work Phone: [facility] 04-25-2023 14:14-0500 Respiratory rate 18 /min DO Nas Kuns Work Phone: [facility] 04-25-2023 14:14-0500 SaO2% (BldA) [Mass fraction] 97 % DO Nas Kuns Work Phone: [facility] 04-25-2023 14:14-0500 Systolic blood pressure 168 mm[Hg] DO Nas Kuns Work Phone: [facility] 03-12-2023 23:57-0400 Body height 190.5 cm DO Nas Kuns Work Phone: [facility] 03-12-2023 23:57-0400 Body weight 71.7 kg DO Nas Kuns Work Phone: [facility] 03-12-2023 23:56-0400 Body temperature 98.8 [degF] DO Nas Kuns Work Phone: [facility] 03-12-2023 23:56-0400 Diastolic blood pressure 89 mm[Hg] DO Nas Kuns Work Phone: [facility] 03-12-2023 23:56-0400 Heart rate 70 /min DO Nas Kuns Work Phone: [facility] 03-12-2023 23:56-0400 Respiratory rate 19 /min DO Nas Kuns Work Phone: [facility] 03-12-2023 23:56-0400 SaO2% (BldA) [Mass fraction] 98 % DO Nas Kuns Work Phone: [facility] 03-12-2023 23:56-0400 Systolic blood pressure 131 mm[Hg] DO Nas Kuns Work Phone: [facility] 01-24-2023 17:56-0400 Body temperature 98.6 [degF] DO Nas Kuns Work Phone: [facility] 01-24-2023 17:56-0400 Diastolic blood pressure 94 mm[Hg] DO Nas Kuns Work Phone: [facility] 01-24-2023 17:56-0400 Heart rate 85 /min DO Nas Kuns Work Phone: [facility] 01-24-2023 17:56-0400 Respiratory rate 20 /min DO Nas Kuns Work Phone: [facility] 01-24-2023 17:56-0400 SaO2% (BldA) [Mass fraction] 97 % DO Nas Kuns Work Phone: [facility] 01-24-2023 17:56-0400 Systolic blood pressure 143 mm[Hg] DO Nas Kuns Work Phone: [facility] 01-24-2023 17:55-0400 Body height 190.5 cm DO Nas Kuns Work Phone: [facility] 01-24-2023 17:55-0400 Body weight 72.5 kg DO Nas Kuns Work Phone: [facility] 12-09-2022 08:50-0400 Body height 190.5 cm DO Nas Kuns Work Phone: [facility] 12-09-2022 08:50-0400 Body temperature 97.8 [degF] DO Nas Kuns Work Phone: [facility] 12-09-2022 08:50-0400 Body weight 77.11 kg DO Nas Kuns Work Phone: [facility] 12-09-2022 08:50-0400 Diastolic blood pressure 78 mm[Hg] DO Nas Kuns Work Phone: [facility] 12-09-2022 08:50-0400 Heart rate 62 /min DO Nas Kuns Work Phone: [facility] 12-09-2022 08:50-0400 Respiratory rate 18 /min DO Nas Kuns Work Phone: [facility] 12-09-2022 08:50-0400 SaO2% (BldA) [Mass fraction] 100 % DO Nas Kuns Work Phone: [facility] 12-09-2022 08:50-0400 Systolic blood pressure 120 mm[Hg] DO Nas Kuns Work Phone: [facility] 12-02-2022 16:23-0400 Body height 190.5 cm DO Nsa Kuns Work Phone: [facility] 12-02-2022 16:23-0400 Body temperature 98 [degF] DO Nas Kuns Work Phone: [facility] 12-02-2022 16:23-0400 Body weight 71.85 kg DO Nas Kuns Work Phone: [facility] 12-02-2022 16:23-0400 Diastolic blood pressure 79 mm[Hg] DO Nas Kuns Work Phone: [facility] 12-02-2022 16:23-0400 Heart rate 89 /min DO Nas Kuns Work Phone: [facility] 12-02-2022 16:23-0400 Respiratory rate 18 /min DO Nas Kuns Work Phone: [facility] 12-02-2022 16:23-0400 SaO2% (BldA) [Mass fraction] 98 % DO Nas Kuns Work Phone: [facility] 12-02-2022 16:23-0400 Systolic blood pressure 167 mm[Hg] DO Nas Kuns Work Phone: [facility] 04-21-2022 14:00-0500 Diastolic blood pressure 81 mm[Hg] DO Nas Kuns Work Phone: [facility] 04-21-2022 14:00-0500 Heart rate 84 /min DO Nas Kuns Work Phone: [facility] 04-21-2022 14:00-0500 Respiratory rate 18 /min DO Nas Kuns Work Phone: [facility] 04-21-2022 14:00-0500 SaO2% (BldA) [Mass fraction] 97 % DO Nas Kuns Work Phone: [facility] 04-21-2022 14:00-0500 Systolic blood pressure 137 mm[Hg] DO Nas Kuns Work Phone: [facility] 04-21-2022 06:37-0500 Body height 190.5 cm DO Nas Farrell Work Phone: [facility] 04-21-2022 06:37-0500 Body temperature 98.6 [degF] DO Nas Farrell Work Phone: [facility] 04-21-2022 06:37-0500 Body weight 74.38 kg DO Nas Farrell Work Phone: [facility] 03-21-2022 11:00-0400 Body height 187.96 cm Nas Jami Other [employer] Other 03-21-2022 11:00-0400 Body mass index (BMI) [Ratio] 21.18 kg/m2 Nas Farrell Other [employer] Other 03-21-2022 11:00-0400 Body weight 74.84 kg Nas Farrell Other [employer] Other 03-21-2022 11:00-0400 Diastolic blood pressure 74 mm[Hg] Nas Farrell Other [employer] Other 03-21-2022 11:00-0400 Respiratory rate 16 /min Nas Farrell Other [employer] Other 03-21-2022 11:00-0400 SaO2% (BldA) [Mass fraction] 98 % Nas Farrell Other [employer] Other 03-21-2022 11:00-0400 Systolic blood pressure 108 mm[Hg] Nas Farrell Other [employer] Other 02-21-2022 08:30-0400 Body height 187.96 cm Nas Farrell Other [employer] Other 02-21-2022 08:30-0400 Body mass index (BMI) [Ratio] 21.05 kg/m2 Nas Farrell Other [employer] Other 02-21-2022 08:30-0400 Body weight 74.39 kg Nas Farrell Other [employer] Other 02-21-2022 08:30-0400 Diastolic blood pressure 95 mm[Hg] Nas Farrell Other [employer] Other 02-21-2022 08:30-0400 Respiratory rate 16 /min Nas Farrell Other [employer] Other 02-21-2022 08:30-0400 SaO2% (BldA) [Mass fraction] 98 % Nas Farrell Other [employer] Other 02-21-2022 08:30-0400 Systolic blood pressure 125 mm[Hg] Nas Farrell Other [employer] Other 12-19-2021 16:00-0400 Body height 187.96 cm Nas Farrell Other [employer] Other 12-19-2021 16:00-0400 Body mass index (BMI) [Ratio] 21.44 kg/m2 Nas Farrell Other [employer] Other 12-19-2021 16:00-0400 Body weight 75.75 kg Nas Farrell Other [employer] Other 12-19-2021 16:00-0400 Diastolic blood pressure 98 mm[Hg] Nas Farrell Other [employer] Other 12-19-2021 16:00-0400 Respiratory rate 18 /min Nas Farrell Other [employer] Other 12-19-2021 16:00-0400 SaO2% (BldA) [Mass fraction] 87 % Nas Farrell Other [employer] Other 12-19-2021 16:00-0400 Systolic blood pressure 134 mm[Hg] Nas Farrell Other [employer] Other 06-21-2021 08:30-0500 Body height 187.96 cm Nas Farrell Other [employer] Other 06-21-2021 08:30-0500 Diastolic blood pressure 70 mm[Hg] Nas Farrell Other [employer] Other 06-21-2021 08:30-0500 Respiratory rate 16 /min Nas Farrell Other [employer] Other 06-21-2021 08:30-0500 SaO2% (BldA) [Mass fraction] 99 % Nas Farrell Other [employer] Other 06-21-2021 08:30-0500 Systolic blood pressure 112 mm[Hg] Nas Farrell Other [employer] Other Encounters Encounter Date Encounter Type Care Provider Facility Start: 09-21-2024 End: 09-21-2024 Patient encounter procedure Nas Farrell DO Work Phone: [facility] [place] Work Phone: Start: 09-21-2024 End: 09-21-2024 ambulatory Nas Farrell DO Work Phone: [facility] Work Phone: Start: 09-16-2024 End: 09-16-2024 ambulatory [facility] Work Phone: Start: 09-16-2024 End: 09-16-2024 Patient encounter procedure [facility] [place] Work Phone: Start: 02-02-2024 End: 02-02-2024 ambulatory DO Nas Pierres Work Phone: [facility] Work Phone: Start: 02-02-2024 End: 02-02-2024 Patient encounter procedure DO Nas Farrell Work Phone: [facility] Work Phone: Start: 01-18-2024 End: 01-18-2024 ambulatory DO Nas Farrell Work Phone: [facility] Work Phone: Start: 01-18-2024 End: 01-18-2024 Patient encounter procedure DO Naselidia Farrell Work Phone: [facility] Work Phone: Start: 01-09-2024 End: 01-10-2024 Emergency department patient visit DO Nas Farrell Work Phone: [facility] Work Phone: Start: 11-11-2023 End: 11-12-2023 ambulatory Jaciel [place] Facility:[facility] Start: 10-20-2023 End: 10-20-2023 ambulatory [facility] Facility:[facility] Start: 06-17-2023 End: 06-17-2023 ambulatory Nas Jays Other [employer] Other Start: 06-17-2023 Telephone encounter Nas Farrell [facility] [place] Start: 05-25-2023 End: 05-25-2023 ambulatory Nas Farrell Other [facility] [employer] Other Start: 05-25-2023 Telephone encounter Nas Farrell [facility] Start: 04-28-2023 End: 04-28-2023 Emergency department patient visit DO Nas Farrell Work Phone: [facility] Work Phone: Start: 04-27-2023 End: 04-27-2023 Emergency department patient visit DO Nas Farrell Work Phone: [facility] Work Phone: Start: 04-26-2023 End: 04-26-2023 Emergency department patient visit DO Nas Farrell Work Phone: [facility] Work Phone: Start: 04-26-2023 End: 04-26-2023 Emergency department patient visit DO Nas Farrell Work Phone: [facility] Work Phone: Start: 04-25-2023 End: 04-25-2023 Emergency department patient visit DO Nas Farrell Work Phone: [facility] Work Phone: Start: 03-12-2023 End: 03-13-2023 Emergency department patient visit DO Nas Farrell Work Phone: [facility] Work Phone: Start: 01-24-2023 End: 01-24-2023 Emergency department patient visit DO Nas Farrell Work Phone: [facility] Work Phone: Start: 12-09-2022 End: 12-09-2022 Emergency department patient visit DO Nas Farrell Work Phone: [facility] Work Phone: Start: 12-04-2022 End: 12-04-2022 ambulatory Nas Farrell Other [employer] Other Start: 12-04-2022 Telephone encounter Nas Farrell [facility] Start: 12-02-2022 End: 12-02-2022 Emergency department patient visit DO Nas Farrell Work Phone: [facility] Work Phone: Start: 08-13-2022 End: 08-13-2022 ambulatory Nas Farrell Other [employer] Other Start: 08-13-2022 Telephone encounter Nas Farrell [facility] Start: 05-30-2022 End: 05-30-[address] NAS FARRELL Facility:[facility] Start: 04-21-2022 End: 04-21-2022 Emergency department patient visit DO Nas Jami Work Phone: [facility] Start: 03-21-2022 End: 03-21-2022 ambulatory Nas Farrell Other [employer] Other Start: 03-21-2022 Office outpatient vi sit 15 minutes Nas Farrell [facility] Start: 02-24-2022 End: 02-24-[address] NAS FARRELL Facility:[facility] Start: 02-23-2022 Encounter for preprocedural laboratory examination GAGE GARRIDO [facility] Start: 02-21-2022 End: 02-21-2022 ambulatory Nas Farrell Other [employer] Other Start: 02-21-2022 Encounter for other preprocedural examination [facility] Start: 02-21-2022 Office outpatient vi sit 25 minutes Nas Farrell [facility] [place] Start: 02-19-2022 End: 02-20-[address] NAS FARRELL Facility:[facility] Start: 02-19-2022 End: 02-20-2022 Encounter for preprocedural laboratory examination DR NAS FARRELL Facility:[facility] Start: 02-12-2022 End: 02-13-[address] NAS FARRELL Facility:[facility] Start: 02-03-2022 End: 02-04-[address] NAS FARRELL Facility:[facility] Start: 01-30-2022 End: 01-30-2022 ambulatory Nas Farrell Other [employer] Other Start: 01-30-2022 Telephone encounter Nas Farrell [facility] Start: 01-28-2022 End: 01-28-2022 ambulatory WELLINGTON VELEZ Facility:[facility] Start: 01-01-2022 End: 01-02-2022 ambulatory GAGE GARRIDO Facility:[facility] Start: 12-19-2021 End: 12-19-2021 ambulatory Nas Farrell Other [employer] Other Start: 12-19-2021 Office outpatient vi sit 25 minutes Nas Farrell [facility] [place] Start: 12-06-2021 End: 12-06-2021 ambulatory Nas Farrell Other [employer] Other Start: 12-06-2021 Telephone encounter [facility] Farrell [facility] Start: 12-04-2021 End: 12-04-2021 ambulatory Nas Farrell Other [employer] Other Start: 12-04-2021 Telephone encounter Nas Farrell [facility] Start: 10-23-2021 End: 10-23-2021 ambulatory AMAYA RASHID Facility:[facility] Start: 08-14-2021 End: 08-14-[address] NAS FARRELL Facility:[facility] Start: 08-01-2021 End: 08-01-2021 ambulatory Nas Farrell Other [employer] Other Start: 08-01-2021 Telephone encounter Nas Farrell [facility] [place] Start: 06-21-2021 End: 06-21-2021 ambulatory Nas Farrell Other [employer] Other Start: 06-21-2021 Office outpatient vi sit 25 minutes Nas Farrell [facility] [place] Start: 06-21-2021 Telephone encounter Nas Farrell [facility] [place] Start: 06-14-2021 End: 06-14-[address] NAS FARRELL Facility:[facility] Start: 06-13-2021 End: 06-14-2021 Emergency department patient visit NAS FARRELL Facility:[facility] Procedures Date Procedure Procedure Detail Performing Clinician Start: 12-09-2022 Plain X-ray of right hand DO Nas Farrell Work Phone: Plan of Treatment Date Care Activity Detail Author Start: 04-27-2023 [facility] Start: 04-27-2023 [facility] Start: 12-09-2022 Plain X-ray of right hand XR hand RT min 3V* [facility] Start: 12-09-2022 XR Hand - right GE 3 Views [facility] Start: 04-21-2022 [facility] Start: 04-21-2022 [facility] Basophils [#/volume] in Blood by Automated count [facility] Basophils [#/volume] in Blood by Automated count [facility] Basophils/100 leukoc ytes in Blood by Automated count [facility] Basophils/100 leukoc ytes in Blood by Automated count [facility] Eosinophils [#/volum e] in Blood [facility] Eosinophils [#/volum e] in Blood [facility] Eosinophils/100 leuk ocytes in Blood by Automated count [facility] Eosinophils/100 leuk ocytes in Blood by Automated count [facility] Erythrocyte distribu tion width [Ratio] by Automated count [facility] Erythrocytes [#/volu me] in Blood [facility] Hematocrit [Volume Fraction] of Blood [facility] Hemoglobin [Mass/vol ume] in Blood [facility] Leukocytes [#/volume ] corrected for nucleated erythrocytes in Blood by Automated coun [facility] Leukocytes [#/volume ] in Blood [facility] Lymphocytes [#/volum e] in Blood by Automated count [facility] Lymphocytes [#/volum e] in Blood by Automated count [facility] Lymphocytes/100 leuk ocytes in Blood by Automated count [facility] Lymphocytes/100 leuk ocytes in Blood by Automated count [facility] MCH [Entitic mass] b y Automated count [facility] MCHC [Mass/volume] b y Automated count [facility] MCV [Entitic volume] by Automated count [facility] Monocytes [#/volume] in Blood by Automated count [facility] Monocytes [#/volume] in Blood by Automated count [facility] Monocytes/100 leukoc ytes in Blood by Automated count [facility] Monocytes/100 leukoc ytes in Blood by Automated count [facility] Neutrophils [#/volum e] in Blood by Automated count [facility] Neutrophils [#/volum e] in Blood by Automated count [facility] Neutrophils/100 leuk ocytes in Blood by Automated count [facility] Neutrophils/100 leuk ocytes in Blood by Automated count [facility] Nucleated erythrocyt es [Presence] in Blood by Automated count [facility] Nucleated erythrocyt es [Presence] in Blood by Automated count [facility] Patient Education [facility] Work Phone: Patient referral [facility] Work Phone: Platelet mean volume [Entitic volume] in Blood by Automated count [facility] Platelets [#/volume] in Blood [facility] Payers Date Payer Category Payer Unknown [id number] 2024 Self-pay [id number] 1996 Unknown [id number] 1996 Unknown [id number] 1996 Unknown [id number] 1996 Unknown [id number] 1996 Unknown [id number] 1996 Unknown [id number] 1996 Unknown [id number] 1996 Unknown [id number] 1996 Unknown [id number] 1996 Unknown [id number] 1996 Unknown [id number] 1959 Private Health Insurance [id number] Medicaid [id number] 2. [id number] Medicaid [id number] Unknown [id number] Unknown [employer] BC/BS [id number] Unknown [id number] Unknown [id number] Social History Date Type Detail Facility Tobacco smoking status PRIS Unknown if ever smoked [facility] Start: 1995 Sex Assigned At Male F [facility] Sex Assigned At Sex Assigned At Bir th [facility] [employer] Other Start: 04-21-2022 End: 03-12-2023 Tobacco smoking status PRIS Never smoked tobacco (finding) [facility] Start: 12-02-2022 Tobacco smoking status PRIS Ex-smoker (finding) [facility] Start: 12-09-2022 End: 09-15-2024 Tobacco smoking status PRIS Smoker (finding) [facility] Start: 09-16-2024 End: 09-22-2024 Sex Male (finding) [facility] Medical Equipment Procedure Code Equipment Code Equipment [...] fracture, wrist [id number] .[id number] FDA Start: 08-17-2018 Goals Date Patient Goal Desired Activity /State Clinical Notes 06-21-2021 to 09-16-2024 Note Date & Type Note Facility 09-16-2024 Evaluation note Authored September 16, 2024 10:3 4am Sooner if needed, the ER if concerns,The above note written by Anita Solano LPN acting as human recorder, note dictated by Dr. Nas Farrell [facility] Work Phone: [phone] Note [id number]#1.00[facility]05-07-2024 NotePatient Education Materials [id number] Evaluation note* Encounter Date Diagnosis Assessment Notes Treatment Notes Treatment Clinical Notes Mar, Elevated blood pressure reading (ICD-10 [...] Screening for cardiovascular condition (ICD-10 - Z13.6) [employer] Other 09-12-2022 NotePROCEDURE: XR ANKLE RT MIN [...] Electronically authenticated by: BRENNON HEBERT Date: 2022-02-24 18:28[facility]09-09-2022 Evaluation note* Encounter Date Diagnosis Assessment Notes [...] may take 1 or 2 tabs at as needed. Recheck 1 month Feb, Severe depression (ICD-10 - F32.2) Symptoms are stable. Refill provided [employer] Other 09-01-2022 History general Narrative - Reported* Type Description Date Medical History right ankle reconstructive surge ry 02/2022 Surgical History right hand surgery 2019 Surgical History Right ankle reconstructive surg tony per Dr. Garrido 02/2022 Hospitalization History see above [employer] Other 08-31-2022 NotePROCEDURE: XR FOOT RT MIN [...] Electronically authenticated by: BRENNON HEBERT Date: 2022-02-12 15:51[facility]07-20-2022 NotePROCEDURE: XR ANKLE RT MIN 3 VIEWS HISTORY: Pain ; chronic lateral ankle pain for 6 months COMPARISON: None. FINDINGS: BONES:No fracture, acute abnormality, or significant arthropathy. SOFT TISSUES:No visible soft tissue swelling. EFFUSION:None visible. OTHER: Negative. IMPRESSION: 1. Normal examination. Electronically authenticated by: BRENNON HEBERT Date: 2022-01-01 21:52[facility]07-07-2022 Evaluation note* Encounter Date Diagnosis Assessment Notes [...] consult with Dr. Garrido. Patient is agreeable. [employer] Other 01-07-2022 Evaluation note* Encounter Date Diagnosis Assessment Notes Treatment Notes Treatment Clinical Notes Jun, Ankle pain, right (ICD-10 - M25.571) Patient presented to [facility] ER on 06/13/21 for right ankle injury. [...] upon review of blood work results at [facility] 06/02/21. Blood work ordered for recheck. Jun, Other Work note pr ovided for today. [employer] Other Evaluation noteNo InformationNort [employer] Other Evaluation noteNo assessment information available [facility] Work Phone: Evaluation note* Diagnosis Onset Date Resolution Status Contusion of right hand acut e [facility] Work Phone: Evaluation note* Diagnosis Onset Date Resolution Status Right wrist tendonitis acute Right wrist tendonitis acute [facility] Work Phone: Evaluation note* Author Anita Solano [facility] Authored September 16, 2024 10:3 4am Sooner if needed, the ER if concerns,The above note written by Anita Solano LPN acting as human recorder, note dictated by Dr. Nas Farrell [facility] Work Phone: History general Narrative - Reported* Type Description Date Surgical History right hand surgery 2019 Hospitalization History see above [employer] Other History general [facility] [employer] Other Hospital Discharge instructions Additional Instructions NearFollow-up with behavioral health providers as instructed. Your symptoms of depression or suicidal ideation worsen.[facility] Work Phone: Hospital Discharge instructions Additional Instructions Wear the Titus wrap as needed for discomfort Ice to the hand as needed Tylenol Motrin for discomfort Follow-up with family doctor or [place] [facility] as needed Return to the ER for redness swelling fever chills or any other concerns [facility] Work Phone: Hospital Discharge instructions Additional Instructions Take the antibiotic clindamycin 3 times a day for 10 days take until completed Use the Peridex mouthwash twice a day May take [id number]-[id number] Tylenol and/or ibuprofen for discomfort Call your dentist on the dentist list Thursday to try to make an appointment Return to the ER for high fever vomiting visible abscess or any other concerns [facility] Work Phone: Hospital Discharge instructions Additional Instructions If your symptoms return/worsen or you develop any further concerns or symptoms please see your doctor or return to the emergency department immediately.[facility] Work Phone: Hospital Discharge instructions Additional Instructions encouraged consumption of sodium rich foods today; keep appt with [facility] Hospital Discharge instructions Additional Instructions Continue your pain medication Take the Toradol every 6 hours May apply topical medicine such as DENTEK Orajel Frequent warm salt water gargles Follow-up with your dentist Return to the ER for visible abscess fever purulent drainage or any other [facility] Work Phone: Assessments No Assessments Information Available Summary Purpose Family History No Family History Records Found Relationship Condition Age at Onset Recorded Date/T dennis father Hypertension Unknown mother Bipolar disorder Unknown Family history of mental disorder Unknown Advance Directives No Advanced Directives Records Found Advance Directive Response Recorded Date/ Time Advance Directives No February 2:40pm Advance Directive Response Recorded Date/ Time Advance Directives No February 3:40pm Advance Directive Response Recorded Date/ Time Advance Directives No September 15 3:32pm Reason for Referral Reason consult and treat Diagnosis 1 Right ankle injury ( S99.911A) Referral Organization [facility] [place] Referring Provider First Name Nas Referring Provider Last Name Jami Referring Provider Specialty Family Prac luba Referred Provider Gage Garrido Referred Provider Specialty Podiatry - S [...] head and neck pain tooth pain [facility], [facility] Chief Complaint Anxiety head and neck pain tooth pain [facility], [facility] Tooth Abscess Chief Complaint Anxiety head and neck pain tooth pain R [facility], NKI Tooth Abscess Pain, bleeding s/p tooth extraction Chief Complaint rt hand pain Chief Complaint rt hand pain ER [facility] RT WRIST PAIN WX Reason for Visit Contusion of right h and Chief Complaint rt hand pain ER [facility] RT WRIST PAIN WX 3 WEEKS INCREASED STIFNESS Reason for Visit Right wrist tendonit is Right wrist tendonitis Chief Complaint Admit Date Left ear clogged and painful for 4 days now September 16, 2024 9:45am Reason for Visit Admit Date BMI between 19-24,adult September 16, 2024 9:45am Impacted cerumen of left ear September 16, 2024 9:45am Additional Source Comments (unrecognized sect ion and content) No Status Records FoundNo Status Records FoundNo Status Records FoundNo Status Records FoundNo Status Records Found INFORMATION SOURCE (unrecogn ized section and content) DATE CREATED AUTHOR 07/01/2021 [facility] DATE CREATED AUTHOR AUTHOR'S ORGANIZ ATION 06/05/2022 [facility] DATE CREATED AUTHOR AUTHOR'S ORGANIZ ATION 10/29/2023 [facility] DATE CREATED AUTHOR AUTHOR'S ORGANIZ ATION 11/12/2023 [facility] DATE CREATED AUTHOR AUTHOR'S ORGANIZ ATION 09/24/2024 [facility] REASON FOR VISIT (unrecogniz ed section and content) ClinicalER NOTICEtorn shayan nt ankle needs PTClinicalanxiety /PTSDno showhigh bp [...] Primary Care Provider Active Eloisa Aburto , FURNACE UTILITY OPERATOR- Emergency Provider Active Team Status: Inactive Member Role Status Dates Nas Farrell , DO Primary Care Provider Active Cornell Green , DO Emergency Provider Active Team Status: Inactive Member Role Status Dates Nas Farrell , DO Primary Care Provider Active Emery Gao , DO Emergency Provider Active Team Status: Inactive Member Role Status Dates Nas Farrell , DO Primary Care Provider Active Carmen Good APRN Emergency Provider Active Team Status: Inactive Member Role Status Dates Nas Farrell , DO Primary Care Provider Active Sta rt: January 09, 2024 End: January 10, 2024 Provider Temp Emergency Provider Active Start: Izzy lilly 2023 End: January 10, 2024 Team Status: Inactive Member Role Status Dates Nas Farrell DO Primary Care Provider Active Sta rt: January 18, 2024 End: January 18, 2024 Michael García MD Attending Provider Active Star t: January 18, 2024 End: January 18, 2024 Team Status: Inactive Member Role Status Leydi Farrell , Primary Care Provider Active Sta rt: February 02, 2024 End: February 02, 2024 Michael García MD Attending Provider Active Star t: February 02, 2024 End: February 02, 2024 Team Status: Inactive Member Role Status Dates Nas Farrell DO Primary Care Provide r, Attending Provider Active Start: September 16, 2024 End: September 16, 2024 Team Status: Inactive Member Role Status Dates Nas Farrell DO Primary Care Provide r, Attending Provider Active Start: September 21, 2024 End: September 21, 2024 Goals (unrecognized section and content) Goals [...] BE BASED ON THE PRIMARY CLINICAL RECORDS. [email or web address] provides no warranty or guarantee of the accuracy or completeness of information in this document.
--- NOTE | 2024-10-24 21:43 | ED.GENADUL1 ---
HPI HPI - General Adult General Chief complaint: Neuro Symptoms/Deficit Stated complaint: TROUBLE REMEMBERING, NERVE PAIN IN LEFT HAND Time Seen by Provider: 10/24/24 21:41 Source: patient Mode of arrival: walk-in Limitations: no limitations History of Present Illness HPI narrative: Patient is a male who presents to the emergency department today for evaluation concerns for cramping to his left hand and requesting new medication for his ADHD. 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 He reports he will occasionally get cramping to this hand that is alleviated by stretching. The pain. No injuries. No paresthesias, weakness, loss of movement to the affected extremity. He additionally endorses he has ADHD and was on medication remotely as a child. He is wondering if he can get restarted on medication for ADHD. He denies any SI/HI or hallucinations. Denies any illicit drug use. Related Data Home Medications ?Medication ?Instructions ?Recorded ?Confirmed No Known Home Medications 10/24/24 10/24/24 Allergies Allergy/AdvReac Type Severity Reaction Status Date / Time Penicillins Allergy Severe Swelling Verified 10/24/24 21:18 of Lip/Tongue/Throat Opioid HPI Opioid Management Most Recent Opioid Data: Last Pain Scale 7 02/07/24, 02:56 Review of Systems ROS Status of ROS 10 or more systems reviewed and unremarkable except as noted in history and below PFSH PFSH Social History Smoking status: Current every day smoker Little interest or pleasure in doing things: not at all Feeling down, depressed, or hopeless: not at all Exam Narrative Exam Narrative: Constituational: Awake/ alert, no apparent distress, well hydrated HENMT: normocephalic, external ears normal, moist oral mucous membranes and oropharynx normal Eyes: EOMs intact bilaterally and conjunctivae normal Neck: ROM intact Chest: inspection of chest normal Respiratory: Normal respiratory effort, clear to auscultation bilaterally Cardio: regular rate and regular rhythm GI: soft to palpation and non-tender Back: nontender MSK: normal inspection of L UE, +NVI Skin: no rashes Neuro: no focal deficits Psych: mental status grossly normal Constitutional Vital Signs, click to edit/add: Last Vital Signs Temp 98.2 F 10/24/24 21:12 Pulse 95 H 10/24/24 21:12 Resp 20 10/24/24 21:12 BP 131/93 H 10/24/24 21:12 Pulse Ox 100 10/24/24 21:12 O2 Del Method Room Air 10/24/24 21:12 Course Vital Signs Vital signs: Vital Signs Temperature 98.2 F 10/24/24 21:12 Pulse Rate 95 H 10/24/24 21:12 Respiratory Rate 20 10/24/24 21:12 Blood Pressure 131/93 H 10/24/24 21:12 Pulse Oximetry 100 10/24/24 21:12 Oxygen Delivery Method Room Air 10/24/24 21:12 Temperature 98.2 F 10/24/24 21:12 Pulse Rate 95 H 10/24/24 21:12 Respiratory Rate 10/24/24 21:12 Blood Pressure 131/93 H 10/24/24 21:12 Pulse Oximetry 100 10/24/24 21:12 Oxygen Delivery Method Room Air 10/24/24 21:12 Medical Decision Making MDM Narrative Medical decision making narrative: Well-appearing 28-year-old male who presented to the emergency department today for evaluation of concerns for cramping to his left hand with 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 Initial examination vital signs overall stable. No concerning neurovascular or motor findings on exam. Additionally behavior is stable. He endorsed missed an appointment with his primary care provider this morning and was hoping to get answers in the ER tonight. Discussed these findings with the patient including recommendations for supportive care of myalgia 2/2 repetitive movement. Additionally advised on follow-up with occupational health through his employer discussed consideration for ergonomics evaluation due to repetitive movement. Placed on follow-up with patient's primary care provider to further discuss restarting any medication for ADHD. With his primary care provider now in November. Patient verbalized an understanding of this and is agreeable to plan to be discharged home. Medical Records Medical records reviewed: Yes I reviewed the patient's medical records Discharge Plan Discharge Chief Complaint: Neuro Symptoms/Deficit Clinical Impression: Myalgia Patient Disposition: Home, Self-Care Mode of Transportation: Private Vehicle Prescriptions / Home Meds: No Action No Known Home Medications Print Language: Kinyarwanda Instructions: Musculoskeletal Pain (ED) Additional Instructions: Or ibuprofen as needed for any muscle or bone pain. Recommend stretches to help alleviate any cramping. Please follow-up with your primary care provider and employer for occupational health evaluation and ergonomics. Additionally follow-up with your primary care provider to further discuss any concerns related to your ADHD. Referrals: Nas Farrell DO [Primary Care Provider] - 1 week Discharge Date/Time: 10/24/24 21:51
== END 2024-10-24 21:51 | disposition home or self-care (01) ==
PROVIDERS: Emergency Provider Emergency Medicine; PCP Family Medicine
DX: M79.18 Myalgia, other site (principal); R25.2 Cramp and spasm
CPT/HCPCS: 99281